=== PATIENT | female | born 1940 | race Caucasian/White ===

== ENCOUNTER 2019-10-30 23:49 | Observation (INO) | payer OTHER ==
--- OUTSIDE RECORDS SUMMARY | 2019-10-30 23:50 | XMS REPORT ---
:1940 Author Organization eClinicalWorks Care Team Providers Name Role Phone Briones, Na Provider Role Unavailable Allergies, Adverse Reactions, Alerts Substance Reaction Event Type N.K.D.A. Info Not Available Non Drug Allergy Problems Problem Type Condition Code Onset Dates Condition Status Problem Hyperlipidemia E78.5 Active Problem Controlled type 2 diabetes mellitus E11.9 Active without complication, without long-term current use of insulin Problem Primary osteoarthritis involving M15.0 Active multiple joints Problem Gastroesophageal reflux disease K21.0 Active with esophagitis Assessment Dyspnea on minimal exertion R06.09 Active Problem Irritable bowel syndrome with K58.0 Active diarrhea Assessment Primary osteoarthritis involving M15.0 Active multiple joints Problem Left carpal tunnel syndrome G56.02 Active Problem Chronic kidney disease, stage III N18.3 Active (moderate) Problem Seasonal allergic rhinitis due to J30.1 Active pollen Problem Type 2 diabetes mellitus with E11.22 Active diabetic chronic kidney disease Problem skilled nursing current use of insulin Z79.4 Active Problem Constipation K59.00 Active Problem Diabetic neuropathy E11.40 Active Problem Hemorrhoids K64.9 Active Problem GERD (gastroesophageal reflux K21.9 Active disease) Problem Knee pain M25.569 Active Problem Peripheral neuropathy G62.9 Active Problem Benign essential HTN I10 Active Problem Anemia D64.9 Active Problem Diabetes E11.9 Active Medications Medication Code Code Instructions Start End Status Dosage System Date Date Meloxicam [facility] 55643385726 7.5 MG Orally Active 1 tablet Once a day Metformin HCl [facility] 19798317350 1000 MG Orally Active 1 tablet Twice a day with meals Flonase ND 10719948041 50 MCG/ACT Active 2 spray in Nasally Once a each day nostril Amlodipine [facility] 72824415422 10 MG Orally Active 1 tablet Besylate Once a day Vitamin B-12 ND 35231756558 1000 MCG Orally Active 1 tablet Once a day Benadryl NDC 0 Active not defined Meloxicam [facility] 46559440276 7.5 MG Orally April 04, Active 1 tablet Once a day 2019 Amlodipine ND 14572363643 10 MG Orally Active 1 tablet Besylate Once a day Restasis [facility] 04909606874 0.05 % Active 1 drop into Ophthalmic affected Twice a day eye Metformin HCl [facility] 47913155227 1000 MG Orally Active 1 tablet Twice a day with meals Niacin ND 01711706914 500 MG Orally Active 1 tablet Once a day with food Lantus SoloStar [facility] 26268430467 100 UNIT/ML Active not defined Subcutaneous Pen [place] [facility] 16409417724 31G X 5 MM February Active as directed 2017 Cephalexin [facility] 20967806078 500 MG Orally Active 1 capsule every 12 hrs D3 Adult [facility] 70911280580 1000 UNIT Active 1 tablet Orally Once a day Gabapentin [facility] 96909829598 600 MG Orally Active 1 tablet twice a day Lipitor [facility] 42369913932 40 MG Orally Active 1 tablet Once a day Magnesium [facility] 77461962634 250 MG Orally Active 1 tablet Once a day with a meal CoQ10 [facility] 20998224870 200 MG Orally Active 1 capsule Once a day with a meal Doxycycline [facility] 72022481901 20 MG Orally Active 1 tablet Hyclate Twice a day Lipitor [facility] 27175942391 40 MG Orally Active 1 tablet Once a day Basaglar [facility] 16485937351 100 UNIT/ML Active 40 units KwikPen Subcutaneous daily Aspir-Low [facility] 14954995847 81 MG Orally Active 1 tablet Once a day Stool Softener [facility] 34001217557 100 MG Orally Active 1 capsule Once a day as needed Amoxicillin [facility] 38687078776 500 MG Orally Active 1 capsule every 8 hrs Vitamin B12 [facility] 19794138494 1000 MCG Orally Active 1 tablet Once a day Dicyclomine HCl [facility] 92129242455 10 MG Orally Nov 09, Active 1 capsules Four times a 2017 day Centrum Silver [facility] 33781993317 - Orally Active as directed Aspirin 81 ND 52043494864 81 MG Orally Active 1 tablet Once a day Basaglar [facility] 00903458847 100 UNIT/ML Active 40 units KwikPen Subcutaneous daily Gabapentin [facility] 92650172978 600 MG Orally Active 1 tablet twice a day Claritin [facility] 10592504160 10 MG Orally Active 1 tablet Once a day Results Name Result Date Reference Range Unit Abnormality Flag Chest Pa And Lat (2 Views) Summary Purpose eClinicalWorks Submission
--- OUTSIDE RECORDS SUMMARY | 2019-10-30 23:50 | XMS REPORT ---
:1940 Author Organization eClinicalWorks Care Team Providers Name Role Phone Briones, Na Provider Role Unavailable Allergies No Known Allergies Problems Problem Type Condition Code Onset Dates Condition Status Problem Hyperlipidemia E78.5 Active Problem Controlled type 2 diabetes mellitus E11.9 Active without complication, without long-term current use of insulin Problem Primary osteoarthritis involving M15.0 Active multiple joints Problem Gastroesophageal reflux disease K21.0 Active with esophagitis Problem Irritable bowel syndrome with K58.0 Active diarrhea Problem Left carpal tunnel syndrome G56.02 Active Problem Chronic kidney disease, stage III N18.3 Active (moderate) Problem Seasonal allergic rhinitis due to J30.1 Active pollen Problem Type 2 diabetes mellitus with E11.22 Active diabetic chronic kidney disease 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
--- OUTSIDE RECORDS SUMMARY | 2019-10-30 23:50 | XMS REPORT ---
:1940 Author Organization eClinicalWorks Care Team Providers Name Role Phone Briones, Na Provider Role Unavailable Allergies, Adverse Reactions, Alerts Substance Reaction Event Type N.K.D.A. Info Not Available Non Drug Allergy Problems Problem Type Condition Code Onset Dates Condition Status Assessment Needs flu shot Z23 Active Assessment detention current use of insulin Z79.4 Active Assessment Gastroesophageal reflux disease K21.0 Active with esophagitis Assessment Chronic kidney disease, stage III N18.3 Active (moderate) Problem Benign essential HTN I10 Active Assessment Primary osteoarthritis involving M15.0 Active multiple joints Problem Diabetes E11.9 Active Assessment Diabetic neuropathy E11.40 Active Problem Hyperlipidemia E78.5 Active Problem Controlled type 2 diabetes mellitus E11.9 Active without complication, without long-term current use of insulin Problem Primary osteoarthritis involving M15.0 Active multiple joints Problem Gastroesophageal reflux disease K21.0 Active with esophagitis Problem Irritable bowel syndrome with K58.0 Active diarrhea Assessment Type 2 diabetes mellitus with E11.22 Active diabetic chronic kidney disease Assessment Benign essential HTN I10 Active Problem Left carpal tunnel syndrome G56.02 Active Assessment Hyperlipidemia E78.5 Active Problem Chronic kidney disease, stage III N18.3 Active (moderate) Problem Seasonal allergic rhinitis due to J30.1 Active pollen Problem Type 2 diabetes mellitus with E11.22 Active diabetic chronic kidney disease Problem meterman current use of insulin Z79.4 Active Problem Constipation K59.00 Active Problem Diabetic neuropathy E11.40 Active Problem Hemorrhoids K64.9 Active Problem GERD (gastroesophageal reflux K21.9 Active disease) Problem Knee pain M25.569 Active Problem Peripheral neuropathy G62.9 Active Problem Anemia D64.9 Active Medications Medication Code Code Instructions Start End Status Dosage System Date Date Metformin HCl [facility] 46841929423 1000 MG Orally Active 1 tablet Twice a day with meals Amoxicillin [facility] 28621067278 500 MG Orally Active 1 capsule every 8 hrs Lipitor ND 81318701850 40 MG Orally Active 1 tablet Once a day Meloxicam [facility] 94728586639 7.5 MG Orally Active 1 tablet Once a day Gabapentin [facility] 07905748747 600 MG Orally Active 1 tablet twice a day Doxycycline ND 52496438483 20 MG Orally Active 1 tablet Hyclate Twice a day Cephalexin ND 82704942793 500 MG Orally Active 1 capsule every [address] [facility] 35609410232 100 UNIT/ML Active not defined Subcutaneous Basaglar [facility] 03508672404 100 UNIT/ML Active 40 units KwikPen Subcutaneous daily Aspirin 81 ND 73011691752 81 MG Orally Active 1 tablet Once a day Lipitor ND 81918646732 40 MG Orally Active 1 tablet Once a day Meloxicam [facility] 99278711282 7.5 MG Orally Active 1 tablet Once a day Basaglar [facility] 51507555600 100 UNIT/ML Active 40 units KwikPen Subcutaneous daily CoQ10 ND 82806818060 200 MG Orally Active 1 capsule Once a day with a meal Vitamin B12 [facility] 33375731830 1000 MCG Orally Active 1 tablet Once a day Gabapentin [facility] 25253728809 600 MG Orally Active 1 tablet twice a day Dicyclomine HCl [facility] 49382074636 10 MG Orally Nov 09, Active 1 capsules Four times a [address] [facility] 41738572749 - Orally Active as directed Aspir-Low [facility] 71638231143 81 MG Orally Active 1 tablet Once a day Benadryl [facility] 0 Active not defined Flonase [facility] 43432368845 50 MCG/ACT Active 2 spray in Nasally Once a each day nostril Amlodipine [facility] 86174310563 10 MG Orally Active 1 tablet Besylate Once a day D3 Adult [facility] 99966259732 1000 UNIT Active 1 tablet Orally Once a day Magnesium [facility] 97195920340 250 MG Orally Active 1 tablet Once a day with a meal Pen [place] [facility] 30354753752 31G X 5 MM February Active as directed [address] [facility] 96240462624 100 MG Orally Active 1 capsule Once a day as needed Vitamin B-12 [facility] 90750272748 1000 MCG Orally Active 1 tablet Once a day Restasis [facility] 37985363651 0.05 % Active 1 drop into Ophthalmic affected Twice a day eye Metformin HCl [facility] 45200463078 1000 MG Orally Active 1 tablet Twice a day with meals Claritin [facility] 74843049864 10 MG Orally Active 1 tablet Once a day Niacin [facility] 51542655054 500 MG Orally Active 1 tablet Once a day with food Amlodipine [facility] 17424430501 10 MG Orally Active 1 tablet Besylate Once a day Results No Known Results Immunizations Vaccine Administration Date FluAD Aug 26, 2019 Summary Purpose eClinicalWorks Submission
--- OUTSIDE RECORDS SUMMARY | 2019-10-30 23:50 | XMS REPORT ---
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
[2019-10-30] MEDS ORDERED: NITROGLYCERIN 0.4 MG/TAB SL ONE (23:59)
[2019-10-31 00:13] LABS: Absolute Lymphocytes (CBC) 6.8 K/uL (0.7-4.9); Basophils % 0.8 % (0-1.3); Hematocrit 39.9 % (36.0-45.0); Lymphocytes % 29.6 % (15.3-44.8); MPV 9.3 fL (7.6-11.3); Protime INR 0.99; RBC Red Blood Cell Count 4.19 M/uL (3.86-4.86)
[2019-10-31] MEDS ORDERED: ASPIRIN EC 81 MG TAB PO ONE (00:28)
[2019-10-31] MEDS ORDERED: ASPIRIN 81 MG CHEWABLE TABLET ONE (00:30)
[2019-10-31 00:39] LABS: Albumin 3.7 g/dL (3.4-5.0); Bilirubin Direct 0.1 mg/dL (0-0.2); Bilirubin Total 0.3 mg/dL (0.2-1.0); Potassium 3.9 mmol/L (3.5-5.1); Protein, Total 7.4 g/dL (6.4-8.2)
[2019-10-31 00:40] LABS: Troponin (Emerg Dept Use Only) 0.76 ng/mL (0.0-0.045)
[2019-10-31 00:52] LABS: Blood Morphology Comment NOT SEEN (NOT SEEN); Platelet Estimate ADEQ
[2019-10-31] MEDS ORDERED: CEFTRIAXONE/SWI 1gm 2 GM/20 ML SYR ONE (00:57)
[2019-10-31] MEDS ORDERED: LEVALBUTEROL 1.25 MG/3 ML NEB ONE (00:57)
[2019-10-31] MEDS ORDERED: AZITHROMYCIN 500 MG INJ IVPB ONE (00:57)
[2019-10-31] MEDS ORDERED: NA CHLORIDE 0.9% 250 ML ONE (00:57)
[2019-10-31] MEDS ORDERED: LEVALBUTEROL 0.63 MG/3 ML NEB ONE (00:59)
[2019-10-31 01:22] LABS: Blood Gas Oxyhemoglobin 99.7 % (94-97); Blood O2 Saturation 99.8 % (92-98.5)
[2019-10-31 01:23] LABS: Arterial Blood Carboxyhemoglob 0.4 % (0-1.5)
[2019-10-31] MEDS ORDERED: FUROSEMIDE 40 MG/4 ML VIAL ONE (02:07)
[2019-10-31] MEDS ORDERED: ENOXAPARIN 80 MG/0.8 ML SQ ONE (02:32)
--- NOTE | 2019-10-31 02:37 | ER ---
Nurse's Notes [facility] Name: Lorelei Ordonez Age: 79 yrs Sex: Female : 1940 Arrival Date: 10/30/2019 Time: 23:56 Bed 14 Private MD: Diagnosis: acute dyspnea;acute CHF;NSTEMI;hyperglycemia Presentation: 10/31 00:04 Presenting complaint: Patient states: SOB and chest pain. pt daughter stated SOB for ak1 "weeks" pt seen by white lead grinder today. pt diaphoretic. Transition of care: patient was not received from another setting of care. Onset of symptoms was October 31, 2019. Risk Assessment: Do you want to hurt yourself or someone else? Patient reports no desire to harm self or others. Initial Sepsis Screen: Does the patient meet any 2 criteria? RR > 20 per min. HR > 90 bpm. Yes Does the patient have a suspected source of infection? No. Patient's initial sepsis screen is negative. Care prior to arrival: None. 00:04 Method Of Arrival: Wheelchair ak1 00:04 Acuity: MELY 1 ak1 Historical: - Allergies: 00:13 No Known Allergies; ak1 - Home Meds: 00:13 metformin 1,000 mg Oral TG24 1 tab 2 times per day [Active]; meloxicam 7.5 mg oral tab ak1 1 tab once daily [Active]; amlodipine besylate 10mg daily [Active]; atorvastatin 40 mg oral tab 1 tab once daily [Active]; doxycycline hyclate 20 mg Oral tab 1 tab 2 times per day [Active]; aspirin 81 mg Oral TbEC 1 tab once daily [Active]; Iron CR 65mg Oral daily [Active]; niacin 500 mg Oral cpER 1 caps once daily [Active]; D3 25mg 2 tabs daily [Active]; magnesium oral 165mg oral twice a day [Active]; Benadryl 25 mg Oral cap 2 caps once daily [Active]; basaglar kwikpen 40 untis daily [Active]; fluticasone propionate (bulk) 100 % miscellaneous powd [Active]; Restasis 0.05 % ophthalmic dpet [Active]; Colace oral oral once daily [Active]; COQU 10 200mg daily [Active]; B12 500mg twice a day [Active]; - PSHx: 00:13 right hip replacement; ak1 - Immunization history:: Adult Immunizations unknown. - Social history:: Smoking status: Patient/guardian denies using tobacco. - Ebola Screening: : No symptoms or risks identified at this time. - Family history:: not pertinent. - Hospitalizations: : No recent hospitalization is reported. - History obtained from: daughter. - Unable to obtain history due to: history somewhat limited due to pt in extremies. Screenin:36 Abuse screen: Denies threats or abuse. Nutritional screening: No deficits noted. fu Tuberculosis screening: No symptoms or risk factors identified. Fall Risk None identified. Assessment: 00:04 General: Appears distressed, uncomfortable, Behavior is anxious, Reports shortness of fu breath and chest pain for 2 weeks, went to white lead grinder today. Pain: Complains of pain in chest pain Pain does not radiate. Pain currently is 10 out of 10 on a pain scale. Also complains of shortness of breath. Neuro: Level of Consciousness is awake, alert, obeys commands, Oriented to person, place, time, situation. Cardiovascular: Reports chest pain, diaphoresis, shortness of breath, Denies nausea, vomiting, Respiratory: Reports shortness of breath on exertion Airway is patent Breath sounds with crackles bilaterally. Respiratory: Reports cough that is productive. GI: No signs and/or symptoms were reported involving the gastrointestinal system. : No signs and/or symptoms were reported regarding the genitourinary system. EENT: Reports nasal discharge that is watery. Derm: No signs and/or symptoms reported regarding the dermatologic system. Musculoskeletal: No signs and/or symptoms reported regarding the musculoskeletal system. 01:40 Reassessment: Patient appears in no apparent distress at this time. Patient and/or fu family updated on plan of care and expected duration. Pain level reassessed. Patient denies pain at this time. Patient states feeling better. Patient states symptoms have improved. Patient on BIPAP at 45% FiO2. Diaphoresis not noted, SOB not noted. . 02:48 Reassessment: Patient appears in no apparent distress at this time. No changes from fu previously documented assessment. Patient and/or family updated on plan of care and expected duration. Pain level reassessed. Patient denies pain at this time. Patient states feeling better. Patient currently on BIPAP at 45% FiO2.. 03:30 Reassessment: Patient appears in no apparent distress at this time. No changes from fu previously documented assessment. Patient denies pain at this time. Patient states symptoms have improved. 04:30 Reassessment: Patient appears in no apparent distress at this time. No changes from fu previously documented assessment. Patient and/or family updated on plan of care and expected duration. Pain level reassessed. 07:00 Reassessment: RECD REPORT ON 79YO WF FROM NAVID NEIL. PT IS ER HOLD FOR ICU, DX WITH bp PULMONARY EDEMA AND RESPIRATORY DISTRESS. SEE [facility] FOR FURTHER CHARTING. Vital Signs: 10/30 23:50 BP 141 / 101; Pulse 127; Resp 33; Pulse Ox 93% on 15 lpm NC; Weight 74.84 kg (R); ak1 Height 5 ft. 4 in. (162.56 cm); Pain 10/; 23:50 BP 151 / 70; Pulse 127; Resp 33; Pulse Ox 97% on 15% Non-rebreather mask; ak1 10/31 00:15 BP 111 / 65; Pulse 127; Resp 23; Pulse Ox 94% on 45% BiPAP; fu 00:30 BP 111 / 64; Pulse 116; Resp 24; Pulse Ox 96% on BiPAP; fu 01:00 BP 121 / 103; Pulse 106; Resp 27; Pulse Ox 100% on BiPAP; fu 01:55 BP 118 / 62 LA; Pulse 100; Resp 23; Pulse Ox 100% on 45% BiPAP; Pain 0/10; fu 02:15 BP 119 / 64; Pulse 100; Resp 24; Pulse Ox 99% on 45% BiPAP; Pain 0/10; fu 03:00 BP 110 / 86; Pulse 113; Resp 24; Pulse Ox 99% on 45% BiPAP; Pain 0/10; fu 03:30 BP 111 / 82; Pulse 102; Resp 22; Pulse Ox 99% on 45% BiPAP; Pain 0/10; fu 04:00 BP 129 / 75; Pulse 106; Resp 26; Pulse Ox 100% on 45% BiPAP; Pain 0/10; fu 10/30 23:50 Body Mass Index 28.32 (74.84 kg, 162.56 cm) ak1 ED Course: 10/30 23:50 Inserted saline lock: 20 gauge in right antecubital area, using aseptic technique. cc3 Blood collected. 23:56 Patient arrived in ED. ak1 23:59 Bird Griggs MD is Attending Physician. 10/31 00:04 Navid Guerin, RN is Primary Nurse. fu 00:05 Triage completed. ak1 00:14 Arm band placed on Patient placed in an exam room, on a stretcher, on oxygen, on ak1 spearer, on pulse oximetry, Patient notified of wait time. EKG completed in triage. Results shown to MD. 00:15 Inserted saline lock: 18 gauge in left wrist, using aseptic technique. Blood collected. ds4 00:24 Notified ED physician of a critical lab result(s). WBC 23.1. ak1 00:30 First set of blood cultures drawn by me, Second set of blood cultures drawn by me, EKG ds4 done, by ED staff, reviewed by Bird Griggs MD. 00:33 XRAY Chest (1 view) In Process Unspecified. EDMS 00:33 Protime (+INR) Sent. ds4 00:33 CBC with Automated Diff Sent. ds4 00:33 Lactate Sent. ds4 00:33 Blood Culture Adult (2) Sent. ds4 00:33 BMP Sent. ds4 00:33 Troponin (emerg Dept Use Only) Sent. ds4 00:51 Notified ED physician of a critical lab result(s). Troponin 0.76. fu 01:12 Notified ED physician of a critical lab result(s). Lactate 5.8. fu 01:34 CT Chest For PE Angio In Process Unspecified. EDMS 01:37 Patient has correct armband on for positive identification. Placed in gown. Bed in low fu position. Call light in reach. Side rails up X2. 02:35 Yana Stallworth MD is Hospitalizing Provider. wa 02:43 provided with pillow. fu 03:12 Urine Microscopic Only Sent. fu 03:30 Patient transferred to hospital bed. fu 04:30 No provider procedures requiring assistance completed. fu 04:33 Patient admitted, IV remains in place. fu 06:51 Notified the Hospitalist of a critical lab result(s), tropin 1.61 and lactate 2.[address] Trista Stallworth. 07:05 Primary Nurse role handed off by Navid Guerin, RASHAAD bp 07:05 Regino Quiñones, RN is Primary Nurse. bp Administered Medications: 00:02 Drug: Nitroglycerin 0.4 mg Route: Sublingual; fu 00:05 Follow up: Response: Pain is decreased fu 00:06 Drug: Nitroglycerin 0.4 mg Route: Sublingual; fu 00:09 Follow up: Response: Pain is decreased fu 00:36 Drug: Aspirin Chewable Tablet 324 mg Route: PO; fu 00:45 Follow up: Response: No adverse reaction fu 01:00 Drug: Rocephin - (cefTRIAXone) 2 grams Route: IVPB; Infused Over: 30 mins; Site: right fu antecubital; 14:04 Follow up: IV Status: Completed infusion bp 01:05 Drug: Xopenex 1.25 mg {Note: administered by RT.} Route: Inhalation; fu 01:10 Drug: Zithromax 500 mg Route: IVPB; Infused Over: 1 hrs; Site: right antecubital; fu 14:03 Follow up: IV Status: Completed infusion bp 02:19 Drug: Lasix 40 mg Route: IVP; Site: left forearm; fu 14:02 Follow up: Response: No adverse reaction bp 02:44 Drug: Lovenox 80 mg Route: Sub-Q; Site: abdomen; fu 14:01 Follow up: Response: No adverse reaction bp Output: 03:13 Urine: 250ml (Voided); Total: 250ml. fu 04:16 Urine: 150ml (Voided); Total: 400ml. fu Outcome: 02:37 Decision to Hospitalize by Provider. wa 04:33 Admitted to ER Hold. Please see [facility] for further documentation. fu 04:33 Condition: improved 04:33 Instructed on the need for admit. 14:05 Patient left the ED. bp Signatures: Dispatcher [employer] EDMS Ford Zimmerman ds4 Mariah Chow RN RN ak1 Bird Griggs MD MD wa Umadhay, Felix, RN RN fu Peltier, Brian, RN RN bp Cordel, Charlene cc3 Corrections: (The following items were deleted from the chart) 00:10 00:06 General: Appears distressed, uncomfortable, Behavior is anxious, fu fu 01:35 01:00 BP 121 / 103; Pulse 106bpm; Resp 27bpm; Pulse Ox 100%; fu fu 02:25 01:30 Response: Marked relief of symptoms fu fu 02:25 02:00 Response: No adverse reaction [facility] [place] 04:40 04:38 Patient transferred to hospital bed. tien chauhan
--- NOTE | 2019-10-31 02:37 | EDPHYS ---
Physician Documentation [facility] Name: Lorelei Ordonez Age: 79 yrs Sex: Female : 1940 Arrival Date: 10/30/2019 Time: 23:56 Bed 14 Private MD: ED Physician Bird Griggs HPI: 10/31 02:18 This 79 yrs old Female presents to ER via Wheelchair with complaints of wa severe shortness of breath. 02:18 The patient has shortness of breath at rest. Onset: The symptoms/episode began/occurred wa just prior to arrival. Duration: The symptoms are continuous, and are steadily getting worse. The patient's shortness of breath has no apparent modifying factors. Associated signs and symptoms: Pertinent positives: chest pain, Pertinent negatives: productive cough, dizziness, hemoptysis. Severity of symptoms: At their worst the symptoms were severe in the emergency department the symptoms are worse markedly. The patient has not experienced similar symptoms in the past. The patient has been recently seen by a physician: Dr. hogue. pt with h/o SOB x [address] Hogue., pt slated for chemical stress test pending. states tonight, sudden onset difficulty in breathing. admits to chest tightness as well. denies h/o COPD. denies tobacco smoking. . Historical: - Allergies: 00:13 No Known Allergies; ak1 - Home Meds: 00:13 metformin 1,000 mg Oral TG24 1 tab 2 times per day [Active]; meloxicam 7.5 mg oral tab ak1 1 tab once daily [Active]; amlodipine besylate 10mg daily [Active]; atorvastatin 40 mg oral tab 1 tab once daily [Active]; doxycycline hyclate 20 mg Oral tab 1 tab 2 times per day [Active]; aspirin 81 mg Oral TbEC 1 tab once daily [Active]; Iron CR 65mg Oral daily [Active]; niacin 500 mg Oral cpER 1 caps once daily [Active]; D3 25mg 2 tabs daily [Active]; magnesium oral 165mg oral twice a day [Active]; Benadryl 25 mg Oral cap 2 caps once daily [Active]; basaglar kwikpen 40 untis daily [Active]; fluticasone propionate (bulk) 100 % miscellaneous powd [Active]; Restasis 0.05 % ophthalmic dpet [Active]; Colace oral oral once daily [Active]; COQU 10 200mg daily [Active]; B12 500mg twice a day [Active]; - PSHx: 00:13 right hip replacement; ak1 - Immunization history:: Adult Immunizations unknown. - Social history:: Smoking status: Patient/guardian denies using tobacco. - Ebola Screening: : No symptoms or risks identified at this time. - Family history:: not pertinent. - Hospitalizations: : No recent hospitalization is reported. - History obtained from: daughter. - Unable to obtain history due to: history somewhat limited due to pt in extremies. ROS: 02:22 Eyes: Negative for injury, pain, redness, and discharge, ENT: Negative for injury, wa pain, and discharge, Neck: Negative for injury, pain, and swelling, Abdomen/GI: Negative for abdominal pain, nausea, vomiting, diarrhea, and constipation, Back: Negative for injury and pain, : Negative for injury, bleeding, discharge, and swelling, MS/Extremity: Negative for injury and deformity, Skin: Negative for injury, rash, and discoloration, Neuro: Negative for headache, weakness, numbness, tingling, and seizure, Psych: Negative for depression, anxiety, suicide ideation, homicidal ideation, and hallucinations. 02:22 Constitutional: Negative for chills, fever, weight loss. 02:22 Cardiovascular: Positive for chest pain, Negative for edema, orthopnea, palpitations, paroxysmal nocturnal dyspnea. 02:22 Respiratory: Positive for shortness of breath, at rest. Negative for cough, hemoptysis, wheezing. 02:22 All other systems are negative. Exam: 02:23 Head/Face: Normocephalic, atraumatic. Eyes: Pupils equal round and reactive to light, wa extra-ocular motions intact. Lids and lashes normal. Conjunctiva and sclera are non-icteric and not injected. Cornea within normal limits. Periorbital areas with no swelling, redness, or edema. ENT: Nares patent. No nasal discharge, no septal abnormalities noted. Tympanic membranes are normal and external auditory canals are clear. Oropharynx with no redness, swelling, or masses, exudates, or evidence of obstruction, uvula midline. Mucous membranes moist. Neck: Trachea midline, no thyromegaly or masses palpated, and no cervical lymphadenopathy. Supple, full range of motion without nuchal rigidity, or vertebral point tenderness. No Meningismus. Chest/axilla: Normal chest wall appearance and motion. Nontender with no deformity. No lesions are appreciated. Abdomen/GI: Soft, non-tender, with normal bowel sounds. No distension or tympany. No guarding or rebound. No evidence of tenderness throughout. Back: No spinal tenderness. No costovertebral tenderness. Full range of motion. MS/ Extremity: Pulses equal, no cyanosis. Neurovascular intact. Full, normal range of motion. Neuro: Awake and alert, GCS 15, oriented to person, place, time, and situation. Cranial nerves II-XII grossly intact. Motor strength 5/5 in all extremities. Sensory grossly intact. Cerebellar exam normal. Normal gait. 02:23 Constitutional: The patient appears in obvious distress, cool, clammy, diaphoretic. severe resp distress 02:25 Cardiovascular: Rate: tachycardic, Rhythm: regular, Heart sounds: normal. wa 02:25 Respiratory: severe repiratory distress is noted, Respirations: tachypnea, Breath sounds: rhonchi, that are severe, are heard diffusely, Respiratory rate: tachypneic Vital Signs: 10/30 23:50 BP 141 / 101; Pulse 127; Resp 33; Pulse Ox 93% on 15 lpm NC; Weight 74.84 kg (R); ak1 Height 5 ft. 4 in. (162.56 cm); Pain 10/10; 23:50 BP 151 / 70; Pulse 127; Resp 33; Pulse Ox 97% on 15% Non-rebreather mask; ak1 10/31 00:15 BP 111 / 65; Pulse 127; Resp 23; Pulse Ox 94% on 45% BiPAP; fu 00:30 BP 111 / 64; Pulse 116; Resp 24; Pulse Ox 96% on BiPAP; fu 01:00 BP 121 / 103; Pulse 106; Resp 27; Pulse Ox 100% on BiPAP; fu 01:55 BP 118 / 62 LA; Pulse 100; Resp 23; Pulse Ox 100% on 45% BiPAP; Pain 0/10; fu 02:15 BP 119 / 64; Pulse 100; Resp 24; Pulse Ox 99% on 45% BiPAP; Pain 0/10; fu 03:00 BP 110 / 86; Pulse 113; Resp 24; Pulse Ox 99% on 45% BiPAP; Pain 0/10; fu 03:30 BP 111 / 82; Pulse 102; Resp 22; Pulse Ox 99% on 45% BiPAP; Pain 0/10; fu 04:00 BP 129 / 75; Pulse 106; Resp 26; Pulse Ox 100% on 45% BiPAP; Pain 0/10; fu 1211 23:50 Body Mass Index 28.32 (74.84 kg, 162.56 cm) ak1 MDM: 00:00 Patient medically screened. ky 02:26 Differential diagnosis: Anxiety Reaction Bronchitis CHF exacerbation, Chronic wa Obstructive Pulmonary Disease Myocardial Infarction pneumonia, pulmonary edema, Pulmonary Embolism reactive airway disease, Unstable Angina. Data reviewed: vital signs, nurses notes, lab test result(s), EKG, radiologic studies. Test interpretation: by ED physician or midlevel provider: CXR noted for pulm edema. CT chest: no PE. pulm edema. labs noted for elevated trop at 0.76. lactate of 5.8. wbc 23.1. flu neg. hyperglycemia. elevated BNP. decreased GFR. AB.62/28.5/152. resp alkalosis. Response to treatment: the patient's symptoms have markedly improved after treatment. Physician consultation: Tr Quijano MD was called at 02:15. 02:30 Test interpretation: by ED physician or midlevel provider: EKG \T\ 2358: HR 126. sinus wa tach. LBBB. diffuse ST-T changes. EKG from 10/08/19 shows LBBB as well. . ED course: immediate control of resp distress. see orders. placed on BIPAP. pt tolerated will. work up included, cardiac, pulm versus pulm etiology eval. noted NSTEMI. pulm edema. 10/31 00:04 Order name: Blood Culture Adult (2) ky 10/31 00:04 Order name: BMP; Complete Time: : ky 10/31 00:04 Order name: CBC with Diff ky 10/31 00:04 Order name: CPK; Complete Time: : ky 10/31 00:04 Order name: Hepatic Function; Complete Time: 01: ky 10/31 00:04 Order name: Lipase; Complete Time: : ky 10/31 00:04 Order name: Magnesium; Complete Time: 01: ky 10/31 00:04 Order name: PT-INR ky 10/31 00:04 Order name: Troponin (emerg Dept Use Only); Complete Time: 01:56 ky 10/31 00:05 Order name: Flu; Complete Time: 01:56 ky 10/31 00:08 Order name: Urine Microscopic Only ky 10/31 00:13 Order name: ABG ky 10/31 00:13 Order name: Lactate; Complete Time: 01:56 ky 10/31 00:21 Order name: CBC with Automated Diff; Complete Time: 01:56 EDHI 10/31 00:22 Order name: Protime (+INR) EDHI 10/31 00:38 Order name: Manual Differential; Complete Time: 01:56 EDHI 10/31 00:51 Order name: NT PRO-BNP; Complete Time: 01:55 EDHI 10/31 04:29 Order name: Lactate Sepsis 2 HR Follow-up EDHI 10/31 06:38 Order name: Lipid Profile EDHI 10/31 06:39 Order name: Thyroid Stimulating Hormone EDHI 10/31 06:48 Order name: Lactate EDHI 10/31 06:50 Order name: CKMB Creatine Kinase MB EDHI 10/31 06:50 Order name: Troponin I EDHI 10/31 07:21 Order name: Glucose, Ancillary Testing EDHI 10/31 07:59 Order name: Hemoglobin A1c EDHI 10/31 08:00 Order name: Procalcitonin EDHI 10/31 09:20 Order name: ABG Arterial Blood Gas EDHI 10/31 10:18 Order name: Lactate Sepsis 2 HR Follow-up EDHI 10/31 12:47 Order name: Glucose, Ancillary Testing EDHI 10/30 23:57 Order name: XRAY Chest (1 view) ak1 10/31 00:04 Order name: EKG; Complete Time: 00:07 ky 10/31 00:04 Order name: Cardiac monitoring; Complete Time: 00:14 ky 10/31 00:04 Order name: EKG - Nurse/Tech; Complete Time: 00:14 ky 10/31 00:04 Order name: IV Saline Lock; Complete Time: 00:14 ky 10/31 00:04 Order name: Labs collected and sent; Complete Time: 00:33 ky 10/31 00:04 Order name: O2 Per Protocol; Complete Time: 00:14 ky 10/31 00:04 Order name: O2 Sat Monitoring; Complete Time: 00:14 ky 10/31 00:22 Order name: CT Chest For PE Angio ky 10/31 04:38 Order name: Social Service Consult EDMS 10/31 12:04 Order name: RAD EDMS Administered Medications: 00:02 Drug: Nitroglycerin 0.4 mg Route: Sublingual; fu 00:05 Follow up: Response: Pain is decreased fu 00:06 Drug: Nitroglycerin 0.4 mg Route: Sublingual; fu 00:09 Follow up: Response: Pain is decreased fu 00:36 Drug: Aspirin Chewable Tablet 324 mg Route: PO; fu 00:45 Follow up: Response: No adverse reaction fu 01:00 Drug: Rocephin - (cefTRIAXone) 2 grams Route: IVPB; Infused Over: 30 mins; Site: right fu antecubital; 14:04 Follow up: IV Status: Completed infusion bp 01:05 Drug: Xopenex 1.25 mg {Note: administered by RT.} Route: Inhalation; fu 01:10 Drug: Zithromax 500 mg Route: IVPB; Infused Over: 1 hrs; Site: right antecubital; fu 14:03 Follow up: IV Status: Completed infusion bp 02:19 Drug: Lasix 40 mg Route: IVP; Site: left forearm; fu 14:02 Follow up: Response: No adverse reaction bp 02:44 Drug: Lovenox 80 mg Route: Sub-Q; Site: abdomen; fu 14:01 Follow up: Response: No adverse reaction bp Disposition: 02:34 Critical Care:. ky Disposition: 10/31/19 02:37 Hospitalization ordered by Yana Stallworth for Inpatient Admission. Preliminary diagnosis are acute dyspnea, acute CHF, NSTEMI, hyperglycemia. - Bed requested for Telemetry/MedSurg (Inpatient). - Status is Inpatient Admission. bp - Condition is Stable. - Problem is new. - Symptoms have improved. UTI on Admission? No Critical care time excluding procedures: 02:34 Critical care time: Bedside Care: 20 minutes, Consultation: 5 minutes, Family wa Intervention: 5 minutes. Total time: 30 minutes Signatures: Dispatcher [employer] EDHI Barbara Romano RN RN tl1 Mariah Chow RN RN ak1 Bird Griggs MD MD wa Umadhay, Felix, RN RN fu Peltier, Brian, RN RN bp [place] mw2 Nancy Cervantes Corrections: (The following items were deleted from the chart) 00:50 00:07 PROBNP+C.LAB.BRZ ordered. EDMS EDMS 04:07 02:37 Hospitalization Ordered by Yana Stallworth MD for Inpatient Admission. Preliminary mw2 diagnosis is acute dyspnea; acute CHF; NSTEMI; hyperglycemia. Bed requested for Telemetry/MedSurg (Inpatient). Status is Inpatient Admission. Condition is Stable. Problem is new. Symptoms have improved. UTI on Admission? No. wa 04:26 04:07 10/31/2019 02:37 Hospitalization Ordered by Yana Stallworth MD for Inpatient tl1 Admission. Preliminary diagnosis is acute dyspnea; acute CHF; NSTEMI; hyperglycemia. Bed requested for [facility] ER HOLD. Status is Inpatient Admission. Condition is Stable. Problem is new. Symptoms have improved. UTI on Admission? No. mw2 12:23 04:26 10/31/2019 02:37 Hospitalization Ordered by Yana Stallworth MD for Inpatient eb Admission. Preliminary diagnosis is acute dyspnea; acute CHF; NSTEMI; hyperglycemia. Bed requested for Intensive Care Unit. Status is Inpatient Admission. Condition is Stable. Problem is new. Symptoms have improved. UTI on Admission? No. tl1 14:05 12:23 10/31/2019 02:37 Hospitalization Ordered by Yana Stallworth MD for Inpatient bp Admission. Preliminary diagnosis is acute dyspnea; acute CHF; NSTEMI; hyperglycemia. Bed requested for Telemetry/MedSurg (Inpatient). Status is Inpatient Admission. Condition is Stable. Problem is new. Symptoms have improved. UTI on Admission? No. eb
--- NOTE | 2019-10-31 04:37 | P.HP ---
Certification for Inpatient Patient admitted to: Inpatient With expected LOS: >2 Midnights Patient will require the following post-hospital care: Home Health Services Practitioner: I am a practitioner with admitting privileges, knowledge of patient current condition, hospital course, and medical plan of care. Services: Services provided to patient in accordance with Admission requirements found in Title 42 Section 412.3 of the Code of Federal Regulations Patient History Date of Service: 10/31/19 Reason for admission: respiratory failure, CHF exacerbation History of Present Illness: phil lima is a 79yoWF w/ pmhx DM, HTN, HLD who presented in respiratory failure placed on BIPAP due to SOB. she reports MIX, orthopnea and SOB x 3.5 weeks. she was initally evaluated by her PCP and after testing was sent to cardiology. she visited cardiology on the morning of 10/30/19 to plan for outpatient stress test. she was awaken in the middle of the night in respiratory distress and on ED evaluation noted to have moderate CHF and interstitial infiltrates on imaging. she is noted to have elevated Cr, wbc, troponin, BNP, lactic acid. she remains on BIPAP and will be admitted to ICU for PCCM and cardio eval. She reports substernal non radiating chest pressure, orthopnea, and MIX x 2 weeks. she also reports vomiting en route to the ED. she also reports a chronic cough. prior to 3.5 weeks ago she has never had similarsymptoms. in 2012 she underwent TTE w/ dx of cough - no WMA, EF 58% she denies diaphoresis, LE swelling, nausea, fever, chills, UMAÑA, visual changes, diarrhea, constipation. Allergies No Known Allergies Allergy (Verified 10/31/19 04:53) - Past Medical/Surgical History -: DIABETES - Social History Smoking Status: Never smoker Alcohol use: No CD- Drugs: No Review of Systems General: As per HPI Eyes: Unremarkable ENT: Unremarkable Respiratory: Cough, Shortness of Breath, SOB with Excertion, Sputum Cardiovascular: Chest Pain, Orthopnea Gastrointestinal: Vomiting, As per HPI Genitourinary: Unremarkable Musculoskeletal: Unremarkable Neurological: Unremarkable Physical Examination - Physical Exam General: Alert, Oriented x3, Cooperative, Mild distress, Other (on bipap, conversing, answering questions) HEENT: Atraumatic, Normocephalic, EOMI Neck: Supple Respiratory: Normal air movement, Crackles/rales Cardiovascular: No edema, Normal S1 S2, No murmurs Gastrointestinal: Soft and benign, Non-distended, No rebound, No guarding Musculoskeletal: No clubbing, No swelling, No tenderness Integumentary: No rashes Neurological: Normal speech, Cranial nerves 3-12 intact, Other (gait not tested) External genitalia: No edema, No lesions Rectal: Deferred - Studies Laboratory Data (last 24 hrs) 10/31/19 00:00: PT 11.7, INR 0.99 10/31/19 00:00: WBC 23.1 H*, Hgb 12.9, Hct 39.9, Plt Count 398 10/31/19 00:00: Sodium 139, Potassium 3.9, BUN 18, Creatinine 1.52 H, Glucose 372 H, Magnesium 2.0, Total Bilirubin 0.3, AST 24, ALT 24, Alkaline Phosphatase 50, Lipase 226 Microbiology Data (last 24 hrs): 10/31/19 00:18 Nasopharnyx Influenza Type A Antigen Screen - Final 10/31/19 00:18 Nasopharnyx Influenza Type B Antigen Screen - Final Assessment and Plan - Plan 79yoF admitted w/ # CHF exacerbation - new onset cardio consulted IV lasix for diuresis strict I/O and monitor O2 sats monitor tele, obtain tsh, a1c, lipid trend CE, start ASA 325 daily # respiratory failure- on bipap wean supplemental o2 as tolerated once off of BIPAP - initiate IS duonebs PCCM consulted for titration of supplemental o2 will need PT once off of BiPAP # atypical PNA started on IV abx duonebs, wean supplemental o2 # DM obtain a1c start on SSI monitor FSBG and adjust insulin accordingly DVT ppx - given 80lovenox in ED x 1, SCDs ordered - Advance Directives Does patient have a Living Will: Yes Does patient have a Durable POA for Healthcare: No
[2019-10-31 04:48] LABS: Urine Bacteria <20 /HPF (<20); Urine Culture Reflex Order NOT NEEDED; Urine RBC <5 /HPF (NONE SEEN)
[2019-10-31] MEDS ORDERED: ONDANSETRON 4 MG/2 ML VIAL IV PRN (05:18)
[2019-10-31] MEDS ORDERED: ACETAMINOPHEN 500 MG TAB PO PRN (05:18)
[2019-10-31] MEDS ORDERED: NITROGLYCERIN 0.4 MG/TAB SL PRN (05:18)
[2019-10-31 06:38] LABS: Thyroid Stimulating Hormone 0.927 uIU/mL (0.360-3.740)
[2019-10-31 06:41] LABS: CKMB Creatine Kinase MB 8.9 ng/mL (0.3-3.6)
[2019-10-31 06:49] LABS: Troponin I 1.61 ng/mL (0.0-0.045)
[2019-10-31] MEDS: INSULIN -REGULAR HUMAN 50 UNIT/0.5 ML ML SQ SCH ×4 (07:30→20:38)
[2019-10-31] MEDS ORDERED: ALBUTEROL 2.5 MG/3 ML NEB SOL NEB PRN (07:36)
[2019-10-31] MEDS ORDERED: IPRATROPIUM BROM 0.5MG/2.5ML NEB PRN (07:36)
[2019-10-31] MEDS ORDERED: ALBUTEROL 2.5 MG/3 ML NEB SOL NEB SCH (08:00)
[2019-10-31] MEDS ORDERED: IPRATROPIUM BROM 0.5MG/2.5ML NEB SCH (08:00)
[2019-10-31] MEDS ORDERED: INFLUENZA VACCINE (for 3y+) 0.5 ML DOSE IMVAC ONE (08:00)
--- NOTE | 2019-10-31 08:20 | RAD REPORT ---
EXAM DESCRIPTION: RAD - Chest Single View - 10/31/2019 12:08 am CLINICAL HISTORY: SOB Chest pain. COMPARISON: Chest Pa And Lat (2 Views) dated 10/08/2019; CHEST SINGLE VIEW dated 07/17/2013; CHEST PA AND LAT 2 VIEW dated 02/11/2010; Chest For Pe Angio dated 10/31/2019 FINDINGS: Portable technique limits examination quality. Moderate bilateral pulmonary opacities are present likely representing pulmonary edema or pneumonia. The heart is mildly to moderately enlarged in size. No displaced fractures.
--- NOTE | 2019-10-31 08:22 | EKG ---
Test Date: 2019-10-30 Test Time: 23:58:46 Timber Killer: MILEY MEASUREMENT RESULTS: Intervals: Rate: 126 OH: 160 QRSD: 148 QT: 342 QTc: 495 [place]: P: 78 OH: 160 QRS: -3 T: 133 INTERPRETIVE STATEMENTS: Sinus tachycardia Possible Left atrial enlargement Left bundle branch block Abnormal ECG Compared to ECG 10/08/2019 12:36:17 Sinus rhythm no longer present Electronically Signed On 10-31-19 08:21:57 INSIDE SALES ADMINISTRATOR by Epi Hogue
[2019-10-31] MEDS: CYANOCOBALAMIN 1,000 MCG TAB PO SCH (09:00)
[2019-10-31] MEDS ORDERED: COENZYME Q10- 200 MG CAP PO SCH (09:00)
[2019-10-31] MEDS: NIACIN 500 MG SR TAB PO SCH (09:00)
[2019-10-31 09:14] LABS: Arterial Blood Carboxyhemoglob 0.6 % (0-1.5); Blood Gas Oxyhemoglobin 97.1 % (94-97); Blood O2 Saturation 98.3 % (92-98.5)
--- NOTE | 2019-10-31 11:30 | RAD REPORT ---
EXAM DESCRIPTION: CT Chest For PE Angio CLINICAL HISTORY: 79 years Female SOB TECHNIQUE: Contiguous axial images obtained through the chest were obtained from the thoracic inlet to the level of the upper abdomen during the pulmonary arterial phase of intravenous contrast adminis tration. Coronal, sagittal, and bilateral oblique coronal reformatted images provided. This CT exam was performed according to our departmental dose-optimization program, which includes on e or more of the following dose reduction techniques: automated exposure control, adjustment of the m A and/or kV according to patient size, and/or use of iterative reconstruction technique. COMPARISON: Correlation is made with the chest radiograph dated 10/30/2019. FINDINGS: There is no pulmonary embolus. Mild cardiomegaly without pericardial effusion. Mild atherosclerosis without thoracic aortic aneurysm or dissection. Small to moderate bilateral layering pleural effusions. Moderate diffuse pulmonary edema. No pneumoth orax. Bibasilar atelectasis. The central airways are patent. No lymphadenopathy in the chest. No acute osseous abnormality. Chronic multilevel degenerative changes. IMPRESSION: No pulmonary embolus. Moderate congestive heart failure. Electronically signed by: Manju Garcia MD 10/31/2019 1:50 AM CAR DESIGNER Due to temporary technical issues with the PACS/Fluency reporting system, reports are being signed by the in house radiologist as a courtesy to ensure prompt reporting. The interpreting radiologist is f ully responsible for the content of the report.
--- NOTE | 2019-10-31 11:49 | RAD REPORT ---
EXAM DESCRIPTION: RAD - Chest Single View - 10/31/2019 11:42 am CLINICAL HISTORY: follow up CXR, Suspect pneumonia/CHF Chest pain. COMPARISON: Chest Single View dated 10/30/2019; Chest Pa And Lat (2 Views) dated 10/08/2019; CHEST S [place] VIEW dated 07/17/2013; CHEST PA AND LAT 2 VIEW dated 02/11/2010; Chest For Pe Angio dated 019 FINDINGS: Portable technique limits examination quality. Mild bilateral pulmonary opacities are present, mildly improved since comparative study an most mala tible with mild pulmonary edema. Atelectasis is suspected in both lung bases with small pleural effus ions. The heart is mildly enlarged. No displaced fractures. IMPRESSION: Mild improvement in the CHF pattern is seen since comparative study.
[2019-10-31 14:42] LABS: CKMB Creatine Kinase MB 9.3 ng/mL (0.3-3.6)
[2019-10-31 14:52] LABS: Troponin I 2.79 ng/mL (0.0-0.045)
--- NOTE | 2019-10-31 15:07 | ECHO ---
HEIGHT: 5 ft 4 in WEIGHT: 164 lb 15.903 oz DATE OF STUDY: 10/31/[address]: Yana Stallworth 2-DIMENSIONAL: YES M.MODE: YES DOPPLER: YES COLOR FLOW: YES TDS: PORTABLE: DEFINITY: BUBBLE STUDY: DIAGNOSIS: CONGESTIVE HEART FAILURE CARDIAC HISTORY: CATHERIZATION: NO SURGERY: NO PROSTHETIC VALVE: NO PACEMAKER: NO MEASUREMENTS (cm) DIASTOLIC (NORMALS) SYSTOLIC (NORMALS) IVSd 0.9 (0.6-1.2) LA Diam 4.5 (1.9-4.0) LVEF 35-40% LVIDd 5.6 (3.5-5.7) LVIDs 4.8 (2.0-3.5) %FS 15% LVPWd 1.2 (0.6-1.2) Ao Diam 2.4 (2.0-3.7) 2 DIMENSIONAL ASSESSMENT: RIGHT ATRIUM: NORMAL LEFT ATRIUM: DILATED RIGHT VENTRICLE: NORMAL LEFT VENTRICLE: NORMAL SIZE TRICUSPID VALVE: NORMAL MITRAL VALVE: MITRAL ANNULAR CALCIFICATION PULMONIC VALVE: NORMAL AORTIC VALVE: SCLEROSIS PERICARDIAL EFFUSION: NONE AORTIC ROOT: NORMAL LEFT VENTRICULAR WALL MOTION: MODERATE GLOBAL HYPOKINESIS DOPPLER/COLOR FLOW: MILD TRICUSPID REGURGITATION. COMMENTS: MODERATE GLOBAL HYPOKINESIS. MILD TRICUSPID REGURGTITATION. EJECTION FRACTION 35-40%. MITRAL ANNULAR CALCIFICATION. AORTIC SCLEROSIS. NO STENOSIS. TECHNOLOGIST: MELLO GORMAN
[2019-10-31] MEDS: FUROSEMIDE 40 MG/4 ML VIAL IV SCH ×2 (15:11→16:56)
--- NOTE | 2019-10-31 15:47 | P.PN ---
Subjective Date of Service: 10/31/19 Primary Care Provider: Dr. Briones Chief Complaint: respiratory failure, CHF exacerbation Subjective: Improving (Patient much better. Patient on BiPAP.) Physical Examination - Vital Signs Temperature: 97.5 F Blood Pressure: 121/65 Pulse: 94 Respirations: 18 Pulse Ox (%): 98 - Physical Exam General: Alert, Cooperative HEENT: Atraumatic Neck: Supple Respiratory: Crackles/rales Cardiovascular: Regular rate/rhythm Gastrointestinal: Normal bowel sounds, Non-distended Integumentary: Tenderness/swelling (Edema to the lower extremities noted) Neurological: Normal speech, Normal strength at 5/5 x4 extr, Normal tone - Studies Laboratory Data (last 24 hrs) 10/31/19 00:00: PT 11.7, INR 0.99 10/31/19 00:00: WBC 23.1 H*, Hgb 12.9, Hct 39.9, Plt Count 398 10/31/19 00:00: Sodium 139, Potassium 3.9, BUN 18, Creatinine 1.52 H, Glucose 372 H, Magnesium 2.0, Total Bilirubin 0.3, AST 24, ALT 24, Alkaline Phosphatase 50, Lipase 226 Microbiology Data (last 24 hrs): 10/31/19 00:18 Nasopharnyx Influenza Type A Antigen Screen - Final 10/31/19 00:18 Nasopharnyx Influenza Type B Antigen Screen - Final Medications List Reviewed: Yes Assessment & Plan Discharge Plan: Home Plan to discharge in: Greater than 2 days Physician Review Additional Text: Impression: Acute on Chronic Respiratory failure secondary to acute on chronic systolic CHF complicated with Acute Coronary Syndrome Diabetes mellitus type 2 Hypertension Hyperlipidemia Possible atypical pneumonia Acute on chronic renal disease stage III Plan: Acute on Chronic Respiratory failure secondary to acute on chronic systolic CHF complicated with Acute Coronary Syndrome: Will continue to monitor closely. Will provide oxygen. Maintain above 93%. Patient placed on Lovenox. Aspirin, Plavix, statin medication and beta-jose added. Discuss with cardiology. Will continue with diuresis. Patient will likely require heart catheterization as an outpatient. Will continue to monitor closely. Diabetes mellitus type 2: Will monitor Accu-Cheks and provide sliding scale Hypertension: Continue medication. Will monitor and adjust accordingly. Hyperlipidemia: Continue medication. Possible atypical pneumonia: Patient started on medication. Will monitor closely. Pulmonology consulted. Acute on chronic renal disease stage III: Will monitor closely. Nephrology consulted. Time Spent Managing Pts Care (In Minutes): 55
[2019-10-31] MEDS: METOPROLOL TAR 25 MG TAB PO SCH (17:14)
[2019-10-31] MEDS: CLOPIDOGREL 75 MG TABLET PO SCH (17:16)
[2019-10-31 20:08] LABS: Urine Appearance CLEAR; Urine Bilirubin NEGATIVE (NEG); Urine Blood NEGATIVE (NEG); Urine Color YELLOW; Urine Glucose NEGATIVE (NEG); Urine Protein NEGATIVE (NEG); Urine Urobilinogen 0.2 mg/dL (0.2-1.0); Urine pH 5.5 (5.0-7.0)
[2019-10-31 20:09] LABS: Urine Microscopic Reflex NO UMIC
[2019-10-31] MEDS ORDERED: ATORVASTATIN 40 MG TAB PO SCH (21:00)
[2019-10-31 22:16] LABS: CKMB Creatine Kinase MB 6.1 ng/mL (0.3-3.6)
[2019-10-31 22:20] LABS: Troponin I 2.57 ng/mL (0.0-0.045)
--- NOTE | 2019-10-31 23:43 | CON ---
Date of Consultation: 10/31/[address] Gaston on 10/31/2019. Reason For Consultation: Congestive heart failure. History Of Present Illness: Ms. Ordonez is a 79-year-old white woman. She has a history of hyperten george, diabetes, dyslipidemia. Had seen me in the office only a day prior to this with episodes of ch est tightness and shortness of breath and she was scheduled to have an echocardiogram and a stress te st as an outpatient. However, she came in overnight with flash pulmonary edema. Had some chest pain along with that. Had some nausea and diaphoresis. Denied PND, orthopnea, pedal edema, palpitations , or syncope. Denied any fever or chills, but has had a cough for a couple of weeks. Symptoms start ed suddenly. Allergies: NONE. Review of Systems: Negative. Social History: Negative. Family History: Negative. Medications: At home include, Norvasc, aspirin, insulin, Lipitor, and metformin. Physical Examination: General: When I saw her, she was on a BiPAP with good oxygen saturation, sinus rhythm. No acute dis tress. HEENT: Negative. Neck: Supple without any bruit, lymphadenopathy, JVD, or thyromegaly. Chest: Reveals rales at both bases. Cardiac: Revealed a regular rhythm and rate without any murmurs, gallops, or rubs. Abdomen: Obese, but benign. Extremities: Revealed no clubbing, cyanosis, or edema. Skin: Dry and intact. Psychologic: Psychologically, she was normal. Neurological: She was normal. Pulses were present in the dorsalis pedis and posterior tibial bilate rally. Diagnostic Data: Glucose was 191, troponin of 0.76. The EKG showed left bundle-branch block with si nus tachycardia. White count was 23,000, creatinine is 1.52, PO2 was 152, pCO2 28, pH was 7.62. Ech ocardiogram in 2013, was negative. Chest x-ray shows CHF versus pneumonia. Impression And Plan: 1.Acute congestive heart failure, most likely systolic. Echocardiogram is pending. We need to diur cely her. Continue oxygen. Continue her aspirin, put her on Lovenox. I would stop the Norvasc for n ow and consider carvedilol. Certainly, an VICK inhibitor may be helpful as well. We will need to mert ch her creatinine meanwhile. 2.Diabetes, poorly controlled. 3.Elevated white count with history of cough and a chest x-ray showing possible pneumonia. I would definitely treat her with antibiotics. Her troponin elevation is concerning especially with history of chest tightness and congestive heart failure. However, I would prefer to delay a heart catheteriz ation until her white count is improved and we will see what her creatinine does with diuresis. If a ll goes well, hopefully we will send her home in the next day or 2 and I will set up a catheterizatio n as an outpatient. The case was discussed with Dr. Gaston. EMANUEL/REMY Voice ID: [id number] Report ID: [id number]
[2019-11-01] MEDS ORDERED: ENOXAPARIN 80 MG/0.8 ML SQ SCH (05:00)
[2019-11-01] MEDS: METOPROLOL TAR 25 MG TAB PO SCH (05:26)
[2019-11-01 06:30] VITALS: BMI 26.6
[2019-11-01 06:40] LABS: Absolute Lymphocytes (CBC) 1.4 K/uL (0.7-4.9); Basophils % 0.7 % (0-1.3); Hematocrit 37.3 % (36.0-45.0); Lymphocytes % 17.4 % (15.3-44.8); MPV 8.7 fL (7.6-11.3); RBC Red Blood Cell Count 4.09 M/uL (3.86-4.86)
[2019-11-01 06:41] LABS: Protime INR 1.09
[2019-11-01 06:58] LABS: Albumin 3.7 g/dL (3.4-5.0); Bilirubin Total 0.5 mg/dL (0.2-1.0); Magnesium 1.8 mg/dL (1.8-2.4); Potassium 3.5 mmol/L (3.5-5.1); Protein, Total 7.5 g/dL (6.4-8.2)
[2019-11-01] MEDS: INSULIN -REGULAR HUMAN 50 UNIT/0.5 ML ML SQ SCH ×2 (07:30→12:55)
[2019-11-01] MEDS ORDERED: CEFTRIAXONE/SWI 1gm 1 GM/10 ML SYR IV SCH (09:00)
[2019-11-01] MEDS ORDERED: ASPIRIN 81 MG CHEWABLE TABLET PO SCH (09:00)
[2019-11-01] MEDS: FUROSEMIDE 40 MG/4 ML VIAL IV SCH (09:00)
[2019-11-01] MEDS ORDERED: ASPIRIN 325 MG TAB PO SCH (09:00)
[2019-11-01] MEDS ORDERED: AZITHROMYCIN IV 500 MG in NA CHLORIDE 0.9% 250 ML IVPB SCH (09:00)
[2019-11-01] MEDS ORDERED: CEFTRIAXONE 1 GM/NS 50 ML 1 GM/50 ML BAG IV SCH (09:00)
[2019-11-01] MEDS ORDERED: MAGNESIUM SULFATE 1 gm IVPB 1 GM/100 ML BAG IV ONE (09:00)
[2019-11-01 09:16] VITALS: O2SAT 95
--- NOTE | 2019-11-01 10:12 | P.CNS ---
Date of Consult: 11/01/19 Primary Care Provider: Dr. Briones Chief Complaint: respiratory failure, CHF exacerbation History of Present Illness: Patient is 79 years of age admitted with acute onset of shortness of breath been having problems for the past 3 weeks was doing relatively well until the day of admission when she became acutely worse at dyspnea on mild exertion had to be carried to the emergency room was found to have congestive heart failure pulmonary edema as not doing much better. There is no prior history of cardiopulmonary problems denies any lower extremity edema orthopnea or PND doing much better on diuretics echocardiogram showed congestive heart failure CT scan shows bilateral interstitial changes with bilateral effusion consistent with congestive heart failure Allergies No Known Allergies Allergy (Verified 10/31/19 04:53) Home Medications: Amlodipine Besylate 10 mg PO DAILY 10/31/19 Aspirin [Low Dose Aspirin EC] 81 mg PO DAILY 10/31/19 Atorvastatin Calcium 40 mg PO DAILY 10/31/19 Cholecalciferol (Vitamin D3) [Vitamin D3] 2 tab PO DAILY 10/31/19 Cyanocobalamin (Vitamin B-12) [Vitamin B12] 1,000 mg PO DAILY 10/31/19 Diphenhydramine [Benadryl Tab/Cap] 2 cap PO BEDTIME 10/31/19 Docusate [Colace Cap] 100 mg PO DAILY 10/31/19 Doxycycline Hyclate 20 mg PO BID 10/31/19 Insulin Glargine,Hum.rec.anlog [Basaglar Kwikpen U-100] 40 unit SQ DAILY Iron 65 mg PO DAILY 10/31/19 Magnesium Oxide [Magnesium] 2 tab PO DAILY 10/31/19 Meloxicam 7.5 mg PO DAILY 10/31/19 Metformin HCl 1,000 mg PO BID 10/31/19 Multivit-Minerals/Folic/Ginkgo [One Daily Women's 50+ Tablet] 1 each PO DAILY Niacin (Inositol Niacinate) [Niacin 500 mg Capsule] 500 mg PO DAILY 10/31/19 Ubidecarenone [Co Q-10] 400 mg PO DAILY 10/31/19 - Past Medical/Surgical History Diabetic: Yes -: DIABETES -: hyperlipidemia -: back surgery -: carpal tunnel surgery -: hip surgery - Social History Alcohol use: No CD- Drugs: No Caffeine use: Yes Place of Residence: Home Review of Systems 10-point ROS is otherwise unremarkable Physical Examination Temp Pulse Resp BP Pulse Ox 97.2 F 82 18 117/65 98 11/01/19 08:00 11/01/19 08:00 11/01/19 08:00 11/01/19 08:00 11/01/19 08:00 General: Alert, In no apparent distress, Oriented x3 Neck: Supple Respiratory: Clear to auscultation bilaterally Cardiovascular: No edema, Regular rate/rhythm Gastrointestinal: Normal bowel sounds, Soft and benign Musculoskeletal: No clubbing, No swelling - Problems (1) Congestive heart disease Current Visit: Yes Status: Acute Plan: Patient is 79 years of age admitted with acute congestive heart failure mostly left ventricular dysfunction elevated troponins patient has risk factors for coronary artery disease no prior history of cardiopulmonary problems is never smoked white count is now normal patient was in acute respiratory alkalosis is doing much better now Dc all antibiotics change to p.o. Lasix patient has left ventricular dysfunction on the echo doubt sepsis chest x-ray has improved room- air oxygenation satisfactory change to p.o. Lasix patient's troponins was significantly elevated Qualifiers: Heart failure type: systolic Heart failure chronicity: acute Qualified Code(s): I50.21 - Acute systolic (congestive) heart failure
[2019-11-01] MEDS: NIACIN 500 MG SR TAB PO SCH (10:14)
[2019-11-01] MEDS: CLOPIDOGREL 75 MG TABLET PO SCH (10:15)
[2019-11-01] MEDS: CYANOCOBALAMIN 1,000 MCG TAB PO SCH (10:15)
[2019-11-01] MEDS ORDERED: POTASSIUM 25 MEQ EFFERV TAB PO SCH (11:00)
[2019-11-01] MEDS ORDERED: SACUBITRIL/VALSARTAN 24/26 MG TAB PO SCH (11:00)
[2019-11-01 12:03] VITALS: BP 108/64; TEMP 97.7
--- NOTE | 2019-11-01 12:03 | P.DS ---
Admission Date: 10/31/19 Discharge Date: 11/01/19 Primary Care Provider: Dr. Briones Reason for Admission: respiratory failure, CHF exacerbation Consultations: Dr. Hogue - Problems (1) Congestive heart disease Status: Acute Qualifiers: Heart failure type: systolic Heart failure chronicity: acute Qualified Code(s): I50.21 - Acute systolic (congestive) heart failure (2) Diabetes type 2, controlled Status: Chronic Qualifiers: Diabetes mellitus ferry terminal agent insulin use: with ferry terminal agent use Diabetes mellitus complication status: without complication Qualified Code(s): E11.9 - Type 2 diabetes mellitus without complications; Z79.4 - care home (current) use of insulin (3) Hypertension Status: Chronic Qualifiers: Hypertension type: essential hypertension Qualified Code(s): I10 - Essential (primary) hypertension Brief History of Present Illness: This is a 79-year-old patient who was admitted to the hospital after being treated in the emergency room for acute congestive heart failure and elevated creatinine with possible pneumonia. Over the past couple days patient has done remarkably well. Hospital Course: Patient was treated for possible atypical pneumonia along with acute kidney injury secondary to prerenal azotemia and acute congestive heart failure. Consults were done by pulmonology and cardiology. It was found that patient does not have an acute pulmonary infection. Patient was thoroughly diuresed and medications were adjusted. The patient was also placed on 2 new medications carvedilol and entresto. Today patient has been able to ambulate with only minimal shortness of breath which is drastic improvement for her. Patient requiring no oxygen at this time. Patient able to eat. Vitals have remained stable. At this time patient is ready to go home which all consulting physicians agree. Will follow closely with them in the next couple weeks. <Lavon Bush - Last Filed: 11/01/19 11:56> Admission Date: 10/31/19 Discharge Date: 11/01/19 <Cali Gaston - Last Filed: 11/01/19 21:20> Disposition: ROUTINE DISCHARGE Discharge Condition: GOOD Vital Signs/Physical Exam: Temp Pulse Resp BP Pulse Ox 97.2 F 82 18 117/65 98 11/01/19 08:00 11/01/19 08:00 11/01/19 08:00 11/01/19 08:00 11/01/19 08:00 General: Alert, In no apparent distress, Oriented x3, Cooperative HEENT: PERRLA, Mucous membr. moist/pink Neck: Supple, 2+ carotid pulse no bruit, JVD not distended, No Thyromegaly Respiratory: Clear to auscultation bilaterally, Normal air movement Cardiovascular: No edema, Normal pulses, Regular rate/rhythm, Normal S1 S2, No gallops, No rubs, No murmurs Capillary refill: <2 Seconds Gastrointestinal: Normal bowel sounds, Soft and benign, Non-distended, No tenderness Musculoskeletal: No clubbing, No swelling, No contractures, No erythema, No tenderness, No warmth Integumentary: No rashes, No breakdown, No significant lesion, No tenderness/ swelling, No erythema, No warmth, No cyanosis Neurological: Normal gait, Normal speech, Normal strength at 5/5 x4 extr, Normal tone, Sensation intact, Cranial nerves 3-12 intact, Normal reflexes 2+, Normal affect Laboratory Data at Discharge: WBC 8.0 K/uL (4.3-10.9) D 11/01/19 06:25 Hgb 12.5 g/dL (12.0-15.0) 11/01/19 06:25 Hct 37.3 % (36.0-45.0) 11/01/19 06:25 Plt Count 350 K/uL (152-406) 11/01/19 06:25 PT 12.8 SECONDS (9.5-12.5) H 11/01/19 06:25 INR 1.09 11/01/19 06:25 Sodium 137 mmol/L (136-145) 11/01/19 06:25 Potassium 3.5 mmol/L (3.5-5.1) 11/01/19 06:25 BUN 19 mg/dL (7-18) H 11/01/19 06:25 Creatinine 0.91 mg/dL (0.55-1.3) 11/01/19 06:25 Glucose 151 mg/dL (74-106) H 11/01/19 06:25 Magnesium 1.8 mg/dL (1.8-2.4) 11/01/19 06:25 Total Bilirubin 0.5 mg/dL (0.2-1.0) 11/01/19 06:25 AST 30 U/L (15-37) 11/01/19 06:25 ALT 28 U/L (12-78) 11/01/19 06:25 Alkaline Phosphatase 39 U/L (45-117) L 11/01/19 06:25 Troponin I 2.57 ng/mL (0.0-0.045) H* 10/31/19 21:42 Triglycerides 172 mg/dL (<150) H 10/31/19 06:04 Cholesterol 127 mg/dL (<200) 10/31/19 06:04 HDL Cholesterol 42 mg/dL (40-60) 10/31/19 06:04 Cholesterol/HDL Ratio 3.02 10/31/19 06:04 Lipase 226 U/L (73-393) 10/31/19 00:00 <Lavon Bush - Last Filed: 11/01/19 11:56> Vital Signs/Physical Exam: Temp Pulse Resp BP Pulse Ox 97.7 F 87 18 108/64 94 11/01/19 12:00 11/01/19 12:00 11/01/19 12:00 11/01/19 12:00 11/01/19 12:00 Laboratory Data at Discharge: WBC 8.0 K/uL (4.3-10.9) D 11/01/19 06:25 Hgb 12.5 g/dL (12.0-15.0) 11/01/19 06:25 Hct 37.3 % (36.0-45.0) 11/01/19 06:25 Plt Count 350 K/uL (152-406) 11/01/19 06:25 PT 12.8 SECONDS (9.5-12.5) H 11/01/19 06:25 INR 1.09 11/01/19 06:25 Sodium 137 mmol/L (136-145) 11/01/19 06:25 Potassium 3.5 mmol/L (3.5-5.1) 11/01/19 06:25 BUN 19 mg/dL (7-18) H 11/01/19 06:25 Creatinine 0.91 mg/dL (0.55-1.3) 11/01/19 06:25 Glucose 151 mg/dL (74-106) H 11/01/19 06:25 Magnesium 1.8 mg/dL (1.8-2.4) 11/01/19 06:25 Total Bilirubin 0.5 mg/dL (0.2-1.0) 11/01/19 06:25 AST 30 U/L (15-37) 11/01/19 06:25 ALT 28 U/L (12-78) 11/01/19 06:25 Alkaline Phosphatase 39 U/L (45-117) L 11/01/19 06:25 Troponin I 2.57 ng/mL (0.0-0.045) H* 10/31/19 21:42 Triglycerides 172 mg/dL (<150) H 10/31/19 06:04 Cholesterol 127 mg/dL (<200) 10/31/19 06:04 HDL Cholesterol 42 mg/dL (40-60) 10/31/19 06:04 Cholesterol/HDL Ratio 3.02 10/31/19 06:04 Lipase 226 U/L (73-393) 10/31/19 00:00 <Cali Gaston - Last Filed: 11/01/19 21:20> Diet: ADA Activity: Ad nahomy <Lavon uBsh - Last Filed: 11/01/19 11:56> Patient Discharge Instructions: 1. Patient will follow up with her PCP within 1 week to follow up this hospitalization. 2. Patient presented with acute on chronic systolic CHF. Patient was diuresed. Patient seen by Cardiology. Medications have been adjusted. At discharge patient will continue with Lasix 40 mg daily, Lopressor 12.5 mg 1 pill twice daily, Entresto 24/26 mg 1 pill twice daily, aspirin 81 mg daily. Recommend to continue with 1500 cc per day fluid restriction and low-salt diet. She is to monitor her weight daily. If her weight increases by more than 5 lb she is to contact cardiology or her PCP for further recommendation. Recommend follow up with cardiology in 1-2 weeks to follow up this hospitalization. 3. Patient with diabetes mellitus type 2. Patient will continue her insulin regimen. Time spent managing pt's care (in minutes): 55 <Cali Gaston - Last Filed: 11/01/19 21:20> Home Medications: Aspirin [Low Dose Aspirin EC] 81 mg PO DAILY 10/31/19 Atorvastatin Calcium 40 mg PO DAILY 10/31/19 Cholecalciferol (Vitamin D3) [Vitamin D3] 2 tab PO DAILY 10/31/19 Docusate [Colace Cap*] 100 mg PO DAILY 10/31/19 Doxycycline Hyclate 20 mg PO BID 10/31/19 Insulin Glargine,Hum.rec.anlog [Arlenaglpamela Hernandezpen U-100] 40 unit SQ DAILY Iron 65 mg PO DAILY 10/31/19 Magnesium Oxide [Magnesium] 2 tab PO DAILY 10/31/19 Meloxicam 7.5 mg PO DAILY 10/31/19 Metformin HCl 1,000 mg PO BID 10/31/19 Multivit-Minerals/Folic/Ginkgo [One Daily Women's 50+ Tablet] 1 each PO DAILY Cyanocobalamin [Vitamin B-12*] 500 mcg PO DAILY tab 11/01/19 Furosemide [Lasix*] 40 mg PO DAILY #30 tab 11/01/19 Metoprolol Tartrate [Lopressor*] 12.5 mg PO BID 6AM 6PM #60 tab 11/01/19 Sacubitril/Valsartan [Entresto 24 mg-26 mg Tablet] 1 tab PO BID 1 Days #60 tab 11/01/19 Ubidecarenone [Coenzyme Q10*] 200 mg PO DAILY cap 11/01/19 New Medications: Furosemide [Lasix*] 40 mg PO DAILY #30 tab Metoprolol Tartrate [Lopressor*] 12.5 mg PO BID 6AM 6PM #60 tab Sacubitril/Valsartan [Entresto 24 mg-26 mg Tablet] 1 tab PO BID 1 Days #60 tab Followup: Gunner Alfred MD [ACTIVE - CAN ADMIT] - 1-2 Weeks (locomotive mechanic- call to schedule an appointment ) Epi Hogue MD [ACTIVE - CAN ADMIT] - 1-2 Weeks (computer programming supervisor- call to schedule an appointment/possible cardiac catheterization ) Julia Briones DO [Primary Care Provider] - 2-3 Days (PCP- call to schedule an appointment )
--- NOTE | 2019-11-01 15:57 | PN ---
Date of Progress Note: 10/31/2019 Ms. Ordonez was admitted on 10/31/2019 and seen on 10/31/2019 with acute pulmonary edema. This has r esolved after using diuretics. Echocardiogram showed an ejection fraction of 35% with moderate globa l hypokinesis. She had significantly elevated troponin and BNP. Creatinine is adequate. The case w as discussed with the primary care physician. We will stop the Norvasc, start Coreg, start Entresto. Continue Lasix. I discussed the case with Dr. Ocasio. He does not feel that she has an actual in fection. Her white count is back to normal. She has had reactive elevation in her white count when she came in. It was 28,000. Dr. Ocasio does not see the need of continuing antibiotics. She is fe eling great this morning. No symptoms. No rales. No edema. I am comfortable with her going home. I will set her up for an outpatient catheterization next week. EMANUEL/REMY Voice ID: [id number] Report ID: [id number]
[2019-11-02] MEDS ORDERED: FUROSEMIDE 40 MG/4 ML VIAL IV SCH (09:00)
[2019-11-02] MEDS ORDERED: FUROSEMIDE 40 MG TABLET PO SCH (09:00)
== END 2019-11-01 14:40 | disposition home or self-care (01) ==
LOC: ER 23:49 → INTOOBSV 10-31 05:15 → ERHOLD 10-31 05:15 → 4TH 10-31 13:47
PROVIDERS: ADMIT Internal Medicine; ATTEND Internal Medicine
DX: I50.23 Acute on chronic systolic (congestive) heart failure (principal); J96.20 Acute and chronic respiratory failure, unspecified whether with hypoxia or hypercapnia; I13.0 Hypertensive heart and chronic kidney disease with heart failure and stage 1 through stage 4 chronic kidney disease, or unspecified chronic kidney disease; N18.3 Chronic kidney disease, stage 3 (moderate); E11.22 Type 2 diabetes mellitus with diabetic chronic kidney disease; N17.9 Acute kidney failure, unspecified; E78.5 Hyperlipidemia, unspecified; I24.9 Acute ischemic heart disease, unspecified
CPT/HCPCS: 96365; 96368; 93005; 93306; 87040 ×2; 87070; 85025 ×2; 80048; 36415 ×2; 83735 ×2; 82550; 87205; 85610 ×2; 80061; 82947 ×6; 80076; 83605 ×5; 84443; 87077; 87186; 83036; 84484 ×4; 82553 ×3; 83690; 80053; 84145; 83880; 87804 ×2; 71275; 71045 ×2; 82805 ×2; 94660; 96375; 96372; 99291; 99292; 96366; Q9967; G0379; J1940 ×3; J0456 ×2; J3475; J1650 ×2; J0696; J7030 ×2; G0378 ×3; 81003; 81015

== ENCOUNTER 2019-11-07 11:19 | Day surgery (SDC) | payer OTHER ==
[2019-11-05 15:23] LABS: Protime INR 1.04
--- OUTSIDE RECORDS SUMMARY | 2019-11-07 11:21 | XMS REPORT ---
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
--- OUTSIDE RECORDS SUMMARY | 2019-11-07 11:21 | XMS REPORT ---
:1940 Author Organization [employer] Care Team Providers Name Role Phone Briones, Na Provider Role Unavailable Allergies, Adverse Reactions, Alerts Substance Reaction Event Type N.K.D.A. 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.4 Active Problem Constipation K59.00 Active Problem Diabetic neuropathy E11.40 Active Problem Hemorrhoids K64.9 Active Problem GERD (gastroesophageal reflux K21.9 Active disease) Problem Knee pain M25.569 Active Problem Peripheral neuropathy G62.9 Active Problem Anemia D64.9 Active Medications Medication Code Code Instructions Start End Status Dosage System Date Date Metformin HCl [facility] 60501870202 1000 MG Orally Active 1 tablet Twice a day with meals Amoxicillin [facility] 65189639800 500 MG Orally Active 1 capsule every 8 hrs Lipitor ND 13120334501 40 MG Orally Active 1 tablet Once a day Meloxicam [facility] 04934616925 7.5 MG Orally Active 1 tablet Once a day Gabapentin [facility] 04307361342 600 MG Orally Active 1 tablet twice a day Doxycycline ND 55629351432 20 MG Orally Active 1 tablet Hyclate Twice a day Cephalexin ND 40557881728 500 MG Orally Active 1 capsule every 12 hrs Lantus SoloStar [facility] 31449253817 100 UNIT/ML Active not defined Subcutaneous Basaglar [facility] 53142242192 100 UNIT/ML Active 40 units KwikPen Subcutaneous daily Aspirin 81 ND 96989187081 81 MG Orally Active 1 tablet Once a day Lipitor ND 09928083630 40 MG Orally Active 1 tablet Once a day Meloxicam [facility] 17848260139 7.5 MG Orally Active 1 tablet Once a day Basaglar [facility] 07191173945 100 UNIT/ML Active 40 units KwikPen Subcutaneous daily CoQ10 ND 52946430450 200 MG Orally Active 1 capsule Once a day with a meal Vitamin B12 [facility] 69810278237 1000 MCG Orally Active 1 tablet Once a day Gabapentin [facility] 82997879551 600 MG Orally Active 1 tablet twice a day Dicyclomine HCl [facility] 26376687559 10 MG Orally Nov 09, Active 1 capsules Four times a 2018 day Centrum Silver [facility] 88684631313 - Orally Active as directed Aspir-Low [facility] 01626621972 81 MG Orally Active 1 tablet Once a day Benadryl [facility] 0 Active not defined Flonase [facility] 12724606256 50 MCG/ACT Active 2 spray in Nasally Once a each day nostril Amlodipine [facility] 19766286518 10 MG Orally Active 1 tablet Besylate Once a day D3 Adult [facility] 19076065849 1000 UNIT Active 1 tablet Orally Once a day Magnesium [facility] 58712695747 250 MG Orally Active 1 tablet Once a day with a meal [place] [facility] 60823969750 31G X 5 MM February Active as directed 2017 Stool Softener [facility] 47578555337 100 MG Orally Active 1 capsule Once a day as needed Vitamin B-12 [facility] 86792885022 1000 MCG Orally Active 1 tablet Once a day Restasis [facility] 01024608443 0.05 % Active 1 drop into Ophthalmic affected Twice a day eye Metformin HCl [facility] 49327503627 1000 MG Orally Active 1 tablet Twice a day with meals Claritin [facility] 44033323432 10 MG Orally Active 1 tablet Once a day Niacin [facility] 99823369230 500 MG Orally Active 1 tablet Once a day with food Amlodipine [facility] 31161170180 10 MG Orally Active 1 tablet Besylate Once a day Results No Known Results Immunizations Vaccine Administration Date FluAD Aug 26, 2019 Summary Purpose [employer] Submission
--- OUTSIDE RECORDS SUMMARY | 2019-11-07 11:22 | XMS REPORT ---
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
--- OUTSIDE RECORDS SUMMARY | 2019-11-07 11:22 | XMS REPORT ---
[...] E11.22 Active diabetic chronic kidney disease Problem longterm current use of insulin Z79.4 Active Problem Constipation K59.00 Active Problem Diabetic neuropathy E11.40 Active Problem Hemorrhoids K64.9 Active Problem GERD (gastroesophageal reflux K21.9 Active disease) Problem Knee pain M25.569 Active Problem Peripheral neuropathy G62.9 Active Problem Benign essential HTN I10 Active Problem Anemia D64.9 Active Problem Diabetes E11.9 Active Medications Medication Code Code Instructions Start End Status Dosage System Date Date Meloxicam [facility] 22455170157 7.5 MG Orally Active 1 tablet Once a day Metformin HCl [facility] 19850505597 1000 MG Orally Active 1 tablet Twice a day with meals Flonase ND 28541174306 50 MCG/ACT Active 2 spray in Nasally Once a each day nostril Amlodipine [facility] 99272204881 10 MG Orally Active 1 tablet Besylate Once a day Vitamin B-12 ND 89956743727 1000 MCG Orally Active 1 tablet Once a day Benadryl NDC 0 Active not defined Meloxicam [facility] 97547696117 7.5 MG Orally April 04, Active 1 tablet Once a day 2019 Amlodipine ND 79425493077 10 MG Orally Active 1 tablet Besylate Once a day Restasis [facility] 76191743119 0.05 % Active 1 drop into Ophthalmic affected Twice a day eye Metformin HCl [facility] 55269851647 1000 MG Orally Active 1 tablet Twice a day with meals Niacin ND 33701535351 500 MG Orally Active 1 tablet Once a day with food Lantus SoloStar [facility] 64722056032 100 UNIT/ML Active not defined Subcutaneous [place] [facility] 35867763574 31G X 5 MM February Active as directed 2017 Cephalexin [facility] 71348043451 500 MG Orally Active 1 capsule every 12 hrs D3 Adult [facility] 96432531563 1000 UNIT Active 1 tablet Orally Once a day Gabapentin [facility] 89281261794 600 MG Orally Active 1 tablet twice a day Lipitor [facility] 10825660491 40 MG Orally Active 1 tablet Once a day Magnesium [facility] 22659239175 250 MG Orally Active 1 tablet Once a day with a meal CoQ10 [facility] 65557373888 200 MG Orally Active 1 capsule Once a day with a meal Doxycycline [facility] 77910100263 20 MG Orally Active 1 tablet Hyclate Twice a day Lipitor [facility] 30152045905 40 MG Orally Active 1 tablet Once a day Basaglar [facility] 09537005226 100 UNIT/ML Active 40 units KwikPen Subcutaneous daily Aspir-Low [facility] 99863910272 81 MG Orally Active 1 tablet Once a day Stool Softener [facility] 55198275365 100 MG Orally Active 1 capsule Once a day as needed Amoxicillin [facility] 80875727157 500 MG Orally Active 1 capsule every 8 hrs Vitamin B12 [facility] 88737514864 1000 MCG Orally Active 1 tablet Once a day Dicyclomine HCl [facility] 14997872692 10 MG Orally Nov 09, Active 1 capsules Four times a 2017 day Centrum Silver [facility] 04491369691 - Orally Active as directed Aspirin 81 ND 02689771887 81 MG Orally Active 1 tablet Once a day Basaglar [facility] 76927567153 100 UNIT/ML Active 40 units KwikPen Subcutaneous daily Gabapentin [facility] 72239702990 600 MG Orally Active 1 tablet twice a day Claritin [facility] 13512211830 10 MG Orally Active 1 tablet Once a day Results Name Result Date Reference Range Unit Abnormality Flag Chest Pa And Lat (2 Views) Summary Purpose [employer] Submission
--- OUTSIDE RECORDS SUMMARY | 2019-11-07 11:23 | XMS REPORT ---
:1940 Author Organization [employer] Care Team Providers Name Role Phone Briones, Na Provider Role Unavailable Allergies No Known Allergies Problems Problem Type Condition Code Onset Dates Condition Status Problem Controlled type 2 diabetes mellitus E11.9 Active without complication, without long-term current use of insulin Problem Chronic kidney disease, stage III N18.3 Active (moderate) Problem Seasonal allergic rhinitis due to J30.1 Active pollen Problem Acute on chronic systolic I50.23 Active congestive heart failure Problem Hemorrhoids K64.9 Active Problem Left carpal tunnel syndrome G56.02 Active Assessment Benign essential HTN I10 Active Problem Atherosclerosis I70.90 Active Problem Type 2 diabetes mellitus with E11.22 Active diabetic chronic kidney disease Problem computer terminal operator current use of insulin Z79.4 Active Problem Gastroesophageal reflux disease K21.0 Active with esophagitis Problem Irritable bowel syndrome with K58.0 Active diarrhea Problem Peripheral neuropathy G62.9 Active Problem Anemia D64.9 Active Problem Constipation K59.00 Active Problem Diabetic neuropathy E11.40 Active Problem Benign essential HTN I10 Active Problem Diabetes E11.9 Active Problem GERD (gastroesophageal reflux K21.9 Active disease) Problem Hyperlipidemia E78.5 Active Problem Knee pain M25.569 Active Problem Primary osteoarthritis involving M15.0 Active multiple joints Medications Medication Code Code Instructions Start End Status Dosage System Date Date Amlodipine [facility] 23729215169 10 MG Orally Inactive 1 tablet Besylate Once a day Gabapentin [facility] 88983925217 600 MG Orally Active 1 tablet twice a day Results No Known Results Summary Purpose eClinicalWorks Submission
--- OUTSIDE RECORDS SUMMARY | 2019-11-07 11:23 | XMS REPORT ---
:1940 Author Organization [employer] Care Team Providers Name Role Phone Briones, Na Provider Role Unavailable Allergies No Known Allergies Problems Problem Type Condition Code Onset Dates Condition Status Assessment snf current use of insulin Z79.4 Active Assessment Chronic kidney disease, stage III N18.3 Active (moderate) Assessment Hyperlipidemia E78.5 Active Assessment Atherosclerosis I70.90 Active Assessment Benign essential HTN I10 Active Problem Hyperlipidemia E78.5 Active Assessment Type 2 diabetes mellitus with E11.22 Active diabetic chronic kidney disease Problem Primary osteoarthritis involving M15.0 Active multiple joints Assessment Acute on chronic systolic I50.23 Active congestive heart failure Problem Controlled type 2 diabetes mellitus E11.9 Active without complication, without long-term current use of insulin Problem Chronic kidney disease, stage III N18.3 Active (moderate) Problem Seasonal allergic rhinitis due to J30.1 Active pollen Problem Acute on chronic systolic I50.23 Active congestive heart failure Problem Left carpal tunnel syndrome G56.02 Active Problem Hemorrhoids K64.9 Active Problem Atherosclerosis I70.90 Active Assessment Hospital discharge follow-up Z09 Active Problem Type 2 diabetes mellitus with E11.22 Active diabetic chronic kidney disease Problem snf current use of insulin Z79.4 Active Problem Gastroesophageal reflux disease K21.0 Active with esophagitis Problem Irritable bowel syndrome with K58.0 Active diarrhea Problem Peripheral neuropathy G62.9 Active Problem Anemia D64.9 Active Problem Constipation K59.00 Active Problem Diabetic neuropathy E11.40 Active Problem Benign essential HTN I10 Active Problem Diabetes E11.9 Active Problem GERD (gastroesophageal reflux K21.9 Active disease) Problem Knee pain M25.569 Active Medications Medication Code Code Instructions Start End Status Dosage System Date Date Pen Lefor [facility] [id number] 31G X 5 MM February Active as directed 2017 Gabapentin [facility] 35361886560 600 MG Orally Active 1 tablet twice a day Vitamin B-12 [facility] 93618260998 1000 MCG Orally Active 1 tablet Once a day Lasix [facility] 73975791900 40 MG Orally Active 1 tablet Once a day Stool Softener [facility] 78668272310 100 MG Orally Active 1 capsule Once a day as needed Meloxicam [facility] 49252307087 7.5 MG Orally Active 1 tablet Once a day Flonase [facility] 81211400356 50 MCG/ACT Active 2 spray in Nasally Once a each day nostril Metoprolol [facility] 46079062261 25 MG Orally Active 0.5 tablet Tartrate Twice a day with food Claritin [facility] 89559504704 10 MG Orally Active 1 tablet Once a day Aspir-Low [facility] 39262122998 81 MG Orally Active 1 tablet Once a day Centrum Silver [facility] 14321425623 - Orally Active as directed Vitamin B12 [facility] 88008040200 1000 MCG Orally Active 1 tablet Once a day Metformin HCl [facility] 92282690954 1000 MG Orally Active 1 tablet Twice a day with meals Restasis [facility] 59242832013 0.05 % Active 1 drop into Ophthalmic affected Twice a day eye Gabapentin [facility] 17266320781 600 MG Orally Active 1 tablet twice a day Entresto [facility] 67047619154 24/26mg oral Active one 24/26mg bid Aspirin 81 [facility] 20448652875 81 MG Orally Active 1 tablet Once a day Dicyclomine HCl [facility] 57437787396 10 MG Orally Nov 09, Active 1 capsules Four times a 2017 day Lipitor [facility] 66265959620 40 MG Orally Active 1 tablet Once a day FreeStyle Sol [facility] 08794479404 - daily Nov 05, Active as directed 14 Day Bertram 2019 Niacin ND 89104452483 500 MG Orally Active 1 tablet Once a day with food Basaglar ND 87148064999 100 UNIT/ML Active 40 units KwikPen Subcutaneous daily Basaglar [facility] 64370443381 100 UNIT/ML Active 40 units KwikPen Subcutaneous daily Metformin HCl ND 14888826484 1000 MG Orally Active 1 tablet Twice a day with meals Doxycycline ND 89787548649 20 MG Orally Active 1 tablet Hyclate Twice a day Amlodipine [facility] 61823317572 10 MG Orally Active 1 tablet Besylate Once a day D3 Adult [facility] 14486928824 1000 UNIT Active 1 tablet Orally Once a day Lipitor [facility] 16200430347 40 MG Orally Active 1 tablet Once a day Magnesium [facility] 74691864080 250 MG Orally Active 1 tablet Once a day with a meal CoQ10 [facility] 71948267618 200 MG Orally Active 1 capsule Once a day with a meal Cephalexin [facility] 86466368820 500 MG Orally Active 1 capsule every 12 hrs FreeStyle Sol [facility] 27146860150 - Nov 05, Active USE 14 Day Sensor 2019 DIRECTED EVERY 14 DAYS Results No Known Results Summary Purpose [employer]ClinicalWorks Submission
--- OUTSIDE RECORDS SUMMARY | 2019-11-07 11:23 | XMS REPORT ---
[...] Left carpal tunnel syndrome G56.02 Active Problem Atherosclerosis I70.90 Active Problem Type 2 diabetes mellitus with E11.22 Active diabetic chronic kidney disease Problem [facility] current use of insulin Z79.4 Active Problem [...] M15.0 Active multiple joints Medications Medication Code System Code Instructions Start End Date [facility] D[id number] MG Orally Nov 06, Active 1 tablet every 12 hours 2019 as needed prn anxiety Results No Known Results Summary Purpose eClinicalWorks Submission
--- OUTSIDE RECORDS SUMMARY | 2019-11-07 11:23 | XMS REPORT ---
[...] E11.22 Active diabetic chronic kidney disease Problem correction current use of insulin Z79.4 Active Problem [...] Medications Medication Code Code Instructions Start End Date Status Dosage System Date Niacin [facility] 84924502480 500 MG Orally Inactive 1 tablet Once a day with food Results No Known Results Summary Purpose eClinicalWorks Submission
[2019-11-07] MEDS ORDERED: NA CHLORIDE 0.9% 500 ML ONE (11:28)
[2019-11-07] MEDS ORDERED: NA CHLORIDE 0.9% 0 ML ONE (12:10)
[2019-11-07] MEDS ORDERED: HEPA 1000U/500MLS 1,000 UNIT/500 ML BAG IV ONE (12:10)
[2019-11-07] MEDS ORDERED: ATROPINE SULF 1 MG/10 ML SYR IV ONE (12:10)
[2019-11-07 12:17] VITALS: TEMP 97.2
[2019-11-07] MEDS ORDERED: MIDAZOLAM HCL 2 MG/2 ML INJ ONE (12:43)
[2019-11-07] MEDS ORDERED: FENTANYL CITR 100 MCG/2 ML ONE (12:44)
[2019-11-07 14:44] VITALS: O2SAT 94
[2019-11-07 15:21] VITALS: BP 128/67
--- NOTE | 2019-11-07 23:42 | OP ---
Surgeon: Epi Hogue MD Lifter/Driver: Naya Aragon. Reason For Admission: To perform a left heart catheterization, selective coronary arteriogram, and a n LV-gram. Indication: Congestive heart failure, moderate, 35% to 40% ejection fraction, left bundle branch blo ck, abnormal troponin. Procedure In Detail: The patient was brought to the solder making laborer as an outpatient, prepped and draped in the routine sterile fashion. Given Versed for sedation. A 6-Malaysian sheath introduced in the left a nd the right common femoral artery successfully. Angio-Seal was used to close the case. Angiography there was normal. A 6-Malaysian Nataly catheter left and right was used to cannulate the left main an d the right main respectively. The patient had perfectly normal coronaries. LV-gram showed an eject ion fraction of 35% to 40%, global hypokinesis, moderate that was done using a pigtail catheter. Lef t ventricular end-diastolic pressure was approximately 10 mmHg. There was no significant atheroscler osis. There were no complications. Blood Loss: 5 mL. Postoperative Diagnosis: Moderate congestive heart failure, normal coronaries. Plan: Plan is for medical treatment. Anesthesia: Total conscious sedation was 30 minutes. EMANUEL/REMY Voice ID: [id number] Report ID: [id number]
== END 2019-11-07 15:25 | disposition home or self-care (01) ==
LOC: CCL 11:19
PROC: 4A023N7 Measurement of Cardiac Sampling and Pressure, Left Heart, Percutaneous Approach (ICD-10-PCS; principal; 2019-11-07)
PROC: B201YZZ Plain Radiography of Multiple Coronary Arteries using Other Contrast (ICD-10-PCS; 2019-11-07)
DX: I44.7 Left bundle-branch block, unspecified (principal); R94.31 Abnormal electrocardiogram [ECG] [EKG]; I10 Essential (primary) hypertension; E78.5 Hyperlipidemia, unspecified; E11.9 Type 2 diabetes mellitus without complications; D50.9 Iron deficiency anemia, unspecified; I11.0 Hypertensive heart disease with heart failure; I50.9 Heart failure, unspecified
CPT/HCPCS: 36415; 85610; 82947; 85730; 93458; C1893; C1760; J2250; J3010; J7040; J0583

== ENCOUNTER 2023-09-21 09:16 | Emergency (ER) | payer OTHER ==
--- OUTSIDE RECORDS SUMMARY | 2023-09-21 09:22 | XMS REPORT | Continuity of Care Document ---
:1940 Author Organization [facility] t Address [address] [facility] [address] [place] [address] Care Team Providers Name Role Phone Madhav Baig Attending Clinician Unavailable Julia Briones Attending Clinician Unavailable Payers Payer Name Policy Type Policy Number Effective Date Expiration Date S joao [facility] [employer] 1 [id number] 2020 Common TRS/ERS MCR PPO 00:00:00 [facility] MEDICARE NOVITAS MB [id number] [facility] Problems Condition Condition Condition Status Onset Resolution Last Treating Co mments Source Name Details Category Date Date Treatment Clinician Date [id number] Chronic Problem Commo n kidney [facility] disease, - [facility] stage [facility] St (severe) [facility] Peripheral Peripheral Problem C ommon neuropathy neuropathy Sp dinesh [facility] Diabetic Diabetic Problem Commo n neuropathy neuropathy Sp [facility] Gastroesop GERD Problem Commo n hageal (gastroeso [facility] reflux phageal - [facility] disease reflux St disease) [facility] Anemia Anemia Problem Common [facility] Essential Benign Problem Common hypertensi essential Spi rit on HTN [facility] Knee pain Knee pain Problem Com mon [facility] 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 St (disorder) [facility] Hyperlipid Hyperlipid Problem C carolyn emia emia [facility] - [facility] [id number] Controlled Problem Co mmon type 2 [facility] diabetes - [facility] mellitus without [facility] complicati Medica l on, Center without long-term current use of insulin Diabetes Diabetes Problem Commo n mellitus DMII [facility] without without - [facility] complicati complicati St on ons [facility] Long-term nursing home Problem Com mon current current [facility] use of use of - [facility] insulin insulin [facility] Diabetic 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 - [facility] with St diabetic [facility] chronic [facility] kidney Center disease 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 Social History Social Habit Start Date Stop Date Quantity Comments Source History of Tobacco Use Co mmon [facility] Sex Assigned At Com mon [facility] Smoking Status Start Date Stop Date Source Never Smoker Common [facility] Medications Ordered Filled Start Stop Current Ordering Indication Dosage Frequency Signature Comments Components Source Medication Medication Date Date Medication? Clinician (SIG) Name Name Apolloempralph Ozempic 2022-11 No Ozempic 0.25 or 0.5 0.25 or 0.5 0-10 0.25 or MG/DOSE MG/DOSE 00:00: 0.5 00 MG/DOSE Furosemide Furosemide 2020-11 No 1{table QD Furosemide 40 MG 40 MG 2-15 t} 40 MG 00:00: 00 Furosemide Furosemide 2020-11 No 1{table QD Furosemide 40 MG 40 MG 2-15 t} 40 MG 00:00: 00 Furosemide Furosemide 2020-11 No 1{table QD Furosemide 40 MG 40 MG 2-15 t} 40 MG 00:00: 00 Entresto Entresto 2019-0 Yes Na Briones one Co mmon 49/51mg 49/51mg 7-05 [facility] 00:00: - [facility] Ativan Ativan 2018-11 Yes Na Briones 1 tablet Co mmon 2-18 as needed Spirit 00:00: [facility] Ativan 0.5 Ativan 0.5 2018-11 No 1{table Ativan 0.5 MG MG 2-18 t_as_ne MG 00:00: eded} 00 Ativan 0.5 Ativan 0.5 2018-11 No 1{table Ativan 0.5 MG MG 2-18 t_as_ne MG 00:00: eded} 00 Ativan 0.5 Ativan 0.5 2018-11 No 1{table Ativan 0.5 MG MG 2-18 t_as_ne MG 00:00: eded} 00 Ativan 0.5 Ativan 0.5 2018-11 No 1{table Ativan 0.5 MG MG 2-18 t_as_ne MG 00:00: eded} 00 Ativan 0.5 Ativan 0.5 2018-11 No 1{table Ativan 0.5 MG MG 2-18 t_as_ne MG 00:00: eded} 00 Ativan 0.5 Ativan 0.5 2018-11 No 1{table Ativan 0.5 MG MG 2-18 t_as_ne MG 00:00: eded} 00 Ativan 0.5 Ativan 0.5 2018-11 No 1{table Ativan 0.5 MG MG 2-18 t_as_ne MG 00:00: eded} 00 Ativan 0.5 Ativan 0.5 2018-11 No 1{table Ativan 0.5 MG MG 2-18 t_as_ne MG 00:00: eded} 00 Ativan 0.5 Ativan 0.5 2018-11 No 1{table Ativan 0.5 MG MG 2-18 t_as_ne MG 00:00: eded} 00 Ativan 0.5 Ativan 0.5 2018-11 No 1{table Ativan 0.5 MG MG 2-18 t_as_ne MG 00:00: eded} 00 Ativan 0.5 Ativan 0.5 2018-11 No 1{table Ativan 0.5 MG MG 2-18 t_as_ne MG 00:00: eded} 00 Ativan 0.5 Ativan 0.5 2018-11 No 1{table Ativan 0.5 MG MG 2-18 t_as_ne MG 00:00: eded} 00 Ativan 0.5 Ativan 0.5 2018-11 No 1{table Ativan 0.5 MG MG 2-18 t_as_ne MG 00:00: eded} 00 Ativan 0.5 Ativan 0.5 2018-11 No 1{table Ativan 0.5 MG MG 2-18 t_as_ne MG 00:00: eded} 00 Ativan 0.5 Ativan 0.5 2018-11 No 1{table Ativan 0.5 MG MG 2-18 t_as_ne MG 00:00: eded} 00 Ativan 0.5 Ativan 0.5 2018-11 No 1{table Ativan 0.5 MG MG 2-18 t_as_ne MG 00:00: eded} 00 Dicyclomine Dicyclomine 2017-11 Yes Na Briones 1 capsules Common HCl HCl 2-21 [facility] 00:00: - [facility] 00 [facility] Dicyclomine Dicyclomine 2017-11 No 1{capsu QID Dicyclomin HCl 10 MG HCl 10 MG 2-21 les} e HCl 10 00:00: MG 00 Dicyclomine Dicyclomine 2018- No 1{capsu QID Dicyclomin HCl 10 MG HCl 10 MG 2-21 les} e HCl 10 00:00: MG 00 Dicyclomine Dicyclomine 2018- No 1{capsu QID Dicyclomin HCl 10 MG HCl 10 MG 2-21 les} e HCl 10 00:00: MG 00 Dicyclomine Dicyclomine 2018- No 1{capsu QID Dicyclomin HCl 10 MG HCl 10 MG 2-21 les} e HCl 10 00:00: MG 00 Dicyclomine Dicyclomine 2018- No 1{capsu QID Dicyclomin HCl 10 MG HCl 10 MG 2-21 les} e HCl 10 00:00: MG 00 Dicyclomine Dicyclomine 2017- No 1{capsu QID Dicyclomin HCl 10 MG HCl 10 MG 2-21 les} e HCl 10 00:00: MG 00 Dicyclomine Dicyclomine 2018- No 1{capsu QID Dicyclomin HCl 10 MG HCl 10 MG 2-21 les} e HCl 10 00:00: MG 00 Dicyclomine Dicyclomine 2018- No 1{capsu QID Dicyclomin HCl 10 MG HCl 10 MG 2-21 les} e HCl 10 00:00: MG 00 Dicyclomine Dicyclomine 2018- No 1{capsu QID Dicyclomin HCl 10 MG HCl 10 MG 2-21 les} e HCl 10 00:00: MG 00 Dicyclomine Dicyclomine 2018- No 1{capsu QID Dicyclomin HCl 10 MG HCl 10 MG 2-21 les} e HCl 10 00:00: MG 00 Dicyclomine Dicyclomine 2018- No 1{capsu QID Dicyclomin HCl 10 MG HCl 10 MG 2-21 les} e HCl 10 00:00: MG 00 Dicyclomine Dicyclomine 2018- No 1{capsu QID Dicyclomin HCl 10 MG HCl 10 MG 2-21 les} e HCl 10 00:00: MG 00 Pen Concepcion Pen Concepcion 2017- Yes Na Briones as Common 02/02" 3/16" 4-24 directed [facility] 00:00: - [facility] 00 [facility] Pen Concepcion Pen Concepcion 2018-0 No Pen 02/02" 31G X 3" 31G X 4-24 Concepcion 5 MM 5 MM 00:00: 02/02" 31G 00 X 5 MM Pen Concepcion Pen Concepcion 2018-0 No Pen 02/02" 31G X 3" 31G X 4-24 Concepcion 5 MM 5 MM 00:00: 02/02" 31G 00 X 5 MM Pen Concepcion Pen Concepcion 2017-0 No Pen 02/02" 31G X 3" 31G X 4-24 Concepcion 5 MM 5 MM 00:00: 02/02" 31G 00 X 5 MM Pen Concepcion Pen Concepcion 2017-0 No Pen 02/02" 31G X 3" 31G X 4-24 Concepcion 5 MM 5 MM 00:00: 02/02" 31G 00 X 5 MM Pen Concepcion Pen Concepcion 2017-0 No Pen 02/02" 31G X 3" 31G X 4-24 Concepcion 5 MM 5 MM 00:00: 02/02" 31G 00 X 5 MM Pen Concepcion Pen Concepcion 2017-0 No Pen 02/02" 31G X 3" 31G X 4-24 Concepcion 5 MM 5 MM 00:00: 02/02" 31G 00 X 5 MM Pen Concepcion Pen Concepcion 2017-0 No Pen 02/02" 31G X 3" 31G X 4-24 Concepcion 5 MM 5 MM 00:00: 02/02" 31G 00 X 5 MM Pen Concepcion Pen Concepcion 2018-0 No Pen 02/02" 31G X 316" 31G X 4-24 Concepcion 5 MM 5 MM 00:00: 02/02" 31G 00 X 5 MM Pen Concepcion Pen Concepcion 2017-0 No Pen 02/02" 31G X 316" 31G X 4-24 Concepcion 5 MM 5 MM 00:00: 02/02" 31G 00 X 5 MM Pen Concepcion Pen Concepcion 2017-0 No Pen 02/02" 31G X 3/16" 31G X 4-24 Concepcion 5 MM 5 MM 00:00: 02/02" 31G 00 X 5 MM Pen Concepcion Pen Concepcion 2017-0 No Pen 02/02" 31G X 316" 31G X 4-24 Concepcion 5 MM 5 MM 00:00: 02/02" 31G 00 X 5 MM Pen Concepcion Pen Concepcion No Pen 16" 31G X 3/16" 31G X 4-24 Concepcion 5 MM 5 MM 00:00: 02/02" 31G 00 X 5 MM Pen Concepcion Pen Concepcion No Pen 316" 31G X 3/16" 31G X 4-24 Concepcion 5 MM 5 MM 00:00: 02/02" 31G 00 X 5 MM Amlodipine Amlodipine Yes Na Briones 1 tablet Common Besylate Besylate [facility] Lipitor Lipitor Yes Na Briones 1 tablet Co mmon [facility] Stool Stool Yes Na Briones 1 capsule Commo n Softener [facility] Meloxic[facility] Meloxicam Yes Na Briones 1 tablet [facility] FreeStyle FreeStyle Yes Na Briones USE Common Sol 14 Sol 14 DIRECTED Spi rit Day Sensor Day Sensor EVERY 14 - CHI DAYS [facility] Entresto Entresto Yes Na Briones one Comm on 24/mg 24/26mg [facility] Gabapentin Gabapentin Yes Na Briones 1 tablet [facility] Vitamin Vitamin Yes Na Briones 1 tablet Co mmon B-12 B-12 [facility] Restasis Restasis Yes Na Briones 1 drop Co mmon into [facility] eye [facility] Metformin Metformin Yes Na Briones 1 tablet Common HCl HCl with meals [facility] FreeStyle FreeStyle Yes Na Briones as Co on Sol 14 Sol 14 directed Spi rit Day Freedom Day Freedom - C HI [facility] Aspir-Low Aspir-Low Yes Na Briones 1 tablet [facility] Lasix Lasix Yes Na Briones 1 tablet [facility] Claritin Claritin Yes Na Briones 1 tablet [facility] Magnesium Magnesium Yes Na Briones 1 tablet Common with a [facility] meal [facility] Cephalexin Cephalexin Yes Na Briones 1 capsule [facility] Basaglar Basaglar Yes Na Briones 40 units Common KwikPen KwikPen [facility] Flonase Flonase Yes Na Briones 2 spray in Common each Spirit nostril [facility] CoQ10 CoQ10 Yes Na Briones 1 capsule Commo n with a Spirit meal [facility] Centrum Centrum Yes Na Briones as Common Silver Silver directed [facility] Vitamin B12 Vitamin B12 Yes Na Briones 1 tablet Common [facility] Basaglar Basaglar Yes Na Briones 40 units Common KwikPen KwikPen [facility] Doxycycline Doxycycline Yes Na Briones 1 tablet Common Hyclate Hyclate [facility] D3 Adult D3 Adult Yes Na Briones 1 tablet Common [facility] Metoprolol Metoprolol Yes Na Briones 0.5 tablet Common Tartrate Tartrate with food Sp dinesh [facility] Aspirin 81 Aspirin 81 Yes Na Briones 1 tablet Common [facility] Gabapentin Gabapentin Yes Na Briones 1 tablet Common [facility] Amlodipine Amlodipine Yes Na Briones 1 tablet Common Besylate Besylate [facility] FreeStyle FreeStyle No QD FreeStyle Sol 14 Sol 14 Sol 14 Day Freedom Day Freedom Day Freedom - - - Magnesium Magnesium No 1{table QD Magnesium 250 MG 250 MG t_with_ 250 MG a_meal} CoQ10 200 CoQ10 200 No 1{capsu QD CoQ10 200 MG MG le_with MG _a_meal } Lipitor 40 Lipitor 40 No Lipitor 40 MG MG MG metFORMIN metFORMIN No metFORMIN HCl 1000 MG HCl 1000 MG HCl 1000 MG Vitamin B12 Vitamin B12 No 1{table QD Vitamin 1000 MCG 1000 MCG t} B12 1000 MCG D3 Adult D3 Adult No 1{table QD D3 Adult 1000 UNIT 1000 UNIT t} 1000 UNIT Bentyl 10 Bentyl 10 No 1{capsu QID Bentyl 10 MG MG les} MG Cephalexin Cephalexin No 1{capsu BID Cephalexin 500 MG 500 MG le} 500 MG Gabapentin Gabapentin No 1{table BID Gabapentin 600 MG 600 MG t} 600 MG Aspirin 81 Aspirin 81 No 1{table QD Aspirin 81 81 MG 81 MG t} 81 MG Gabapentin Gabapentin No 1{table BID Gabapentin 600 MG 600 MG t} 600 MG Basaglar Basaglar No QD Basaglar KwikPen 100 KwikPen 100 KwikPen UNIT/ML UNIT/ML 100 UNIT/ML metFORMIN metFORMIN No 1{table BID metFORMIN HCl 1000 MG HCl 1000 MG t_with_ HCl 1000 meals} MG metFORMIN metFORMIN No metFORMIN HCl 1000 MG HCl 1000 MG HCl 1000 MG metFORMIN metFORMIN No 1{table BID metFORMIN HCl 1000 MG HCl 1000 MG t_with_ HCl 1000 meals} MG amLODIPine amLODIPine No 1{table QD amLODIPine Besylate 10 Besylate 10 t} Besylate MG MG 10 MG Lasix 40 MG Lasix 40 MG No 1{table QD Lasix 40 t} MG Gabapentin Gabapentin No 1{table BID Gabapentin 600 MG 600 MG t} 600 MG FreeStyle FreeStyle No FreeStyle Sol 14 Sol 14 Sol 14 Day Sensor Day Sensor Day Sensor - - - Lipitor 40 Lipitor 40 No Lipitor 40 MG MG MG Claritin 10 Claritin 10 No 1{table QD Claritin MG MG t} 10 MG Vitamin Vitamin No 1{table QD Vitamin B-12 1000 B-12 1000 t} B-12 1000 MCG MCG MCG amLODIPine amLODIPine No 1{table QD amLODIPine Besylate 10 Besylate 10 t} Besylate MG MG 10 MG Gabapentin Gabapentin No 1{table BID Gabapentin 600 MG 600 MG t} 600 MG Flonase 50 Flonase 50 No 2{spray QD Flonase 50 MCG/ACT MCG/ACT _in_eac MCG/ACT h_nostr il} Bentyl 10 Bentyl 10 No 1{capsu QID Bentyl 10 MG MG les} MG Entresto Entresto No BID Entresto 97/103mg 97/103mg 97/103mg 97/103mg 97/103mg 97/103mg Lipitor 40 Lipitor 40 No 1{table QD Lipitor 40 MG MG t} MG Restasis Restasis No 1{drop_ BID Restasis 0.05 % 0.05 % into_af 0.05 % fected_ eye} Cephalexin Cephalexin No 1{capsu BID Cephalexin 500 MG 500 MG le} 500 MG Metoprolol Metoprolol No .5{tabl BID Metoprolol Tartrate 25 Tartrate 25 et_with Tartrate MG MG _food} 25 MG Vitamin B12 Vitamin B12 No 1{table QD Vitamin 1000 MCG 1000 MCG t} B12 1000 MCG Doxycycline Doxycycline No 1{table BID Doxycyclin Hyclate 20 Hyclate 20 t} e Hyclate MG MG 20 MG Aspirin 81 Aspirin 81 No 1{table QD Aspirin 81 81 MG 81 MG t} 81 MG Basaglar Basaglar No QD Basaglar KwikPen 100 KwikPen 100 KwikPen UNIT/ML UNIT/ML 100 UNIT/ML Stool Stool No 1{capsu QD Stool Softener Softener le_as_n Softener 100 MG 100 MG eeded} 100 MG Basaglar Basaglar No QD Basaglar KwikPen 100 KwikPen 100 KwikPen UNIT/ML UNIT/ML 100 UNIT/ML Centrum Centrum No Centrum Silver - Silver - Silver - CoQ10 200 CoQ10 200 No 1{capsu QD CoQ10 200 MG MG le_with MG _a_meal } D3 Adult D3 Adult No 1{table QD D3 Adult 1000 UNIT 1000 UNIT t} 1000 UNIT Aspir-Low Aspir-Low No 1{table QD Aspir-Low 81 MG 81 MG t} 81 MG Magnesium Magnesium No 1{table QD Magnesium 250 MG 250 MG t_with_ 250 MG a_meal} FreeStyle FreeStyle No QD FreeStyle Sol 14 Sol 14 Sol 14 Day Freedom Day Freedom Day Freedom - - - metFORMIN metFORMIN No metFORMIN HCl 1000 MG HCl 1000 MG HCl 1000 MG metFORMIN metFORMIN No 1{table BID metFORMIN HCl 1000 MG HCl 1000 MG t_with_ HCl 1000 meals} MG amLODIPine amLODIPine No 1{table QD amLODIPine Besylate 10 Besylate 10 t} Besylate MG MG 10 MG Lasix 40 MG Lasix 40 MG No 1{table QD Lasix 40 t} MG Gabapentin Gabapentin No 1{table BID Gabapentin 600 MG 600 MG t} 600 MG FreeStyle FreeStyle No FreeStyle Sol 14 Sol 14 Sol 14 Day Sensor Day Sensor Day Sensor - - - Lipitor 40 Lipitor 40 No Lipitor 40 MG MG MG Claritin 10 Claritin 10 No 1{table QD Claritin MG MG t} 10 MG Vitamin Vitamin No 1{table QD Vitamin B-12 1000 B-12 1000 t} B-12 1000 MCG MCG MCG amLODIPine amLODIPine No 1{table QD amLODIPine Besylate 10 Besylate 10 t} Besylate MG MG 10 MG Gabapentin Gabapentin No 1{table BID Gabapentin 600 MG 600 MG t} 600 MG Flonase 50 Flonase 50 No 2{spray QD Flonase 50 MCG/ACT MCG/ACT _in_eac MCG/ACT h_nostr il} Bentyl 10 Bentyl 10 No 1{capsu QID Bentyl 10 MG MG les} MG Entresto Entresto No BID Entresto 97/103mg 97/103mg 97/103mg 97/103mg 97/103mg 97/103mg Lipitor 40 Lipitor 40 No 1{table QD Lipitor 40 MG MG t} MG Restasis Restasis No 1{drop_ BID Restasis 0.05 % 0.05 % into_af 0.05 % fected_ eye} Cephalexin Cephalexin No 1{capsu BID Cephalexin 500 MG 500 MG le} 500 MG Metoprolol Metoprolol No .5{tabl BID Metoprolol Tartrate 25 Tartrate 25 et_with Tartrate MG MG _food} 25 MG Vitamin B12 Vitamin B12 No 1{table QD Vitamin 1000 MCG 1000 MCG t} B12 1000 MCG Doxycycline Doxycycline No 1{table BID Doxycyclin Hyclate 20 Hyclate 20 t} e Hyclate MG MG 20 MG Aspirin 81 Aspirin 81 No 1{table QD Aspirin 81 81 MG 81 MG t} 81 MG Basaglar Basaglar No QD Basaglar KwikPen 100 KwikPen 100 KwikPen UNIT/ML UNIT/ML 100 UNIT/ML Stool Stool No 1{capsu QD Stool Softener Softener le_as_n Softener 100 MG 100 MG eeded} 100 MG Basaglar Basaglar No QD Basaglar KwikPen 100 KwikPen 100 KwikPen UNIT/ML UNIT/ML 100 UNIT/ML Centrum Centrum No Centrum Silver - Silver - Silver - CoQ10 200 CoQ10 200 No 1{capsu QD CoQ10 200 MG MG le_with MG _a_meal } D3 Adult D3 Adult No 1{table QD D3 Adult 1000 UNIT 1000 UNIT t} 1000 UNIT Aspir-Low Aspir-Low No 1{table QD Aspir-Low 81 MG 81 MG t} 81 MG Magnesium Magnesium No 1{table QD Magnesium 250 MG 250 MG t_with_ 250 MG a_meal} FreeStyle FreeStyle No QD FreeStyle Sol 14 Sol 14 Sol 14 Day Freedom Day Freedom Day Freedom - - - metFORMIN metFORMIN No metFORMIN HCl 1000 MG HCl 1000 MG HCl 1000 MG metFORMIN metFORMIN No 1{table BID metFORMIN HCl 1000 MG HCl 1000 MG t_with_ HCl 1000 meals} MG amLODIPine amLODIPine No 1{table QD amLODIPine Besylate 10 Besylate 10 t} Besylate MG MG 10 MG Lasix 40 MG Lasix 40 MG No 1{table QD Lasix 40 t} MG Gabapentin Gabapentin No 1{table BID Gabapentin 600 MG 600 MG t} 600 MG FreeStyle FreeStyle No FreeStyle Sol 14 Slo 14 Sol 14 Day Sensor Day Sensor Day Sensor - - - Lipitor 40 Lipitor 40 No Lipitor 40 MG MG MG Claritin 10 Claritin 10 No 1{table QD Claritin MG MG t} 10 MG Vitamin Vitamin No 1{table QD Vitamin B-12 1000 B-12 1000 t} B-12 1000 MCG MCG MCG amLODIPine amLODIPine No 1{table QD amLODIPine Besylate 10 Besylate 10 t} Besylate MG MG 10 MG Gabapentin Gabapentin No 1{table BID Gabapentin 600 MG 600 MG t} 600 MG Flonase 50 Flonase 50 No 2{spray QD Flonase 50 MCG/ACT MCG/ACT _in_eac MCG/ACT h_nostr il} Bentyl 10 Bentyl 10 No 1{capsu QID Bentyl 10 MG MG les} MG Entresto Entresto No BID Entresto 97/103mg 97/103mg 97/103mg 97/103mg 97/103mg 97/103mg Lipitor 40 Lipitor 40 No 1{table QD Lipitor 40 MG MG t} MG Restasis Restasis No 1{drop_ BID Restasis 0.05 % 0.05 % into_af 0.05 % fected_ eye} Cephalexin Cephalexin No 1{capsu BID Cephalexin 500 MG 500 MG le} 500 MG Metoprolol Metoprolol No .5{tabl BID Metoprolol Tartrate 25 Tartrate 25 et_with Tartrate MG MG _food} 25 MG Vitamin B12 Vitamin B12 No 1{table QD Vitamin 1000 MCG 1000 MCG t} B12 1000 MCG Doxycycline Doxycycline No 1{table BID Doxycyclin Hyclate 20 Hyclate 20 t} e Hyclate MG MG 20 MG Aspirin 81 Aspirin 81 No 1{table QD Aspirin 81 81 MG 81 MG t} 81 MG Basaglar Basaglar No QD Basaglar KwikPen 100 KwikPen 100 KwikPen UNIT/ML UNIT/ML 100 UNIT/ML Stool Stool No 1{capsu QD Stool Softener Softener le_as_n Softener 100 MG 100 MG eeded} 100 MG Basaglar Basaglar No QD Basaglar KwikPen 100 KwikPen 100 KwikPen UNIT/ML UNIT/ML 100 UNIT/ML Centrum Centrum No Centrum Silver - Silver - Silver - CoQ10 200 CoQ10 200 No 1{capsu QD CoQ10 200 MG MG le_with MG _a_meal } D3 Adult D3 Adult No 1{table QD D3 Adult 1000 UNIT 1000 UNIT t} 1000 UNIT Aspir-Low Aspir-Low No 1{table QD Aspir-Low 81 MG 81 MG t} 81 MG Magnesium Magnesium No 1{table QD Magnesium 250 MG 250 MG t_with_ 250 MG a_meal} FreeStyle FreeStyle No QD FreeStyle Sol 14 Sol 14 Sol 14 Day Freedom Day Freedom Day Freedom - - - Vitamin Vitamin No 1{table QD Vitamin B-12 1000 B-12 1000 t} B-12 1000 MCG MCG MCG Meloxicam Meloxicam No Meloxicam 7.5 MG 7.5 MG 7.5 MG FreeStyle FreeStyle No QD FreeStyle Sol 14 Sol 14 Sol 14 Day Freedom Day Freedom Day Freedom - - - Aspirin 81 Aspirin 81 No 1{table QD Aspirin 81 81 MG 81 MG t} 81 MG Atorvastati Atorvastati No Atorvastat n Calcium n Calcium in Calcium 40 MG 40 MG 40 MG Lasix 40 MG Lasix 40 MG No 1{table QD Lasix 40 t} MG Basaglar Basaglar No QD Basaglar KwikPen 100 KwikPen 100 KwikPen UNIT/ML UNIT/ML 100 UNIT/ML Lipitor 40 Lipitor 40 No 1{table QD Lipitor 40 MG MG t} MG Spironolact Spironolact No 1{table Spironolac one 25 MG one 25 MG t} tone 25 MG metFORMIN metFORMIN No metFORMIN HCl 1000 MG HCl 1000 MG HCl 1000 MG Lipitor 40 Lipitor 40 No Lipitor 40 MG MG MG FreeStyle FreeStyle No FreeStyle Sol 14 Sol 14 Sol 14 Day Sensor Day Sensor Day Sensor - - - Entresto Entresto No BID Entresto 97/103mg 97/103mg 97/103mg 97/103mg 97/103mg 97/103mg Basaglar Basaglar No QD Basaglar KwikPen 100 KwikPen 100 KwikPen UNIT/ML UNIT/ML 100 UNIT/ML Furosemide Furosemide No 1{table QD Furosemide 40 MG 40 MG t} 40 MG Metoprolol Metoprolol No .5{tabl BID Metoprolol Tartrate 25 Tartrate 25 et_with Tartrate MG MG _food} 25 MG Vitamin B12 Vitamin B12 No 1{table QD Vitamin 1000 MCG 1000 MCG t} B12 1000 MCG Stool Stool No 1{capsu QD Stool Softener Softener le_as_n Softener 100 MG 100 MG eeded} 100 MG D3 Adult D3 Adult No 1{table QD D3 Adult 1000 UNIT 1000 UNIT t} 1000 UNIT Claritin 10 Claritin 10 No 1{table QD Claritin MG MG t} 10 MG metFORMIN metFORMIN No 1{table BID metFORMIN HCl 1000 MG HCl 1000 MG t_with_ HCl 1000 meals} MG amLODIPine amLODIPine No 1{table QD amLODIPine Besylate 10 Besylate 10 t} Besylate MG MG 10 MG Gabapentin Gabapentin No 1{table BID Gabapentin 600 MG 600 MG t} 600 MG amLODIPine amLODIPine No amLODIPine Besylate 10 Besylate 10 Besylate MG MG 10 MG Flonase 50 Flonase 50 No 2{spray QD Flonase 50 MCG/ACT MCG/ACT _in_eac MCG/ACT h_nostr il} Bentyl 10 Bentyl 10 No 1{capsu QID Bentyl 10 MG MG les} MG Aspir-Low Aspir-Low No 1{table QD Aspir-Low 81 MG 81 MG t} 81 MG Gabapentin Gabapentin No Gabapentin 600 MG 600 MG 600 MG Restasis Restasis No 1{drop_ BID Restasis 0.05 % 0.05 % into_af 0.05 % fected_ eye} Magnesium Magnesium No 1{table QD Magnesium 250 MG 250 MG t_with_ 250 MG a_meal} Cephalexin Cephalexin No 1{capsu BID Cephalexin 500 MG 500 MG le} 500 MG Centrum Centrum No Centrum Silver - Silver - Silver - Doxycycline Doxycycline No 1{table BID Doxycyclin Hyclate 20 Hyclate 20 t} e Hyclate MG MG 20 MG CoQ10 200 CoQ10 200 No 1{capsu QD CoQ10 200 MG MG le_with MG _a_meal } Vitamin Vitamin No 1{table QD Vitamin B-12 1000 B-12 1000 t} B-12 1000 MCG MCG MCG Meloxicam Meloxicam No Meloxicam 7.5 MG 7.5 MG 7.5 MG FreeStyle FreeStyle No QD FreeStyle Sol 14 Sol 14 Sol 14 Day Freedom Day Freedom Day Freedom - - - Aspirin 81 Aspirin 81 No 1{table QD Aspirin 81 81 MG 81 MG t} 81 MG Atorvastati Atorvastati No Atorvastat n Calcium n Calcium in Calcium 40 MG 40 MG 40 MG Lasix 40 MG Lasix 40 MG No 1{table QD Lasix 40 t} MG Basaglar Basaglar No QD Basaglar KwikPen 100 KwikPen 100 KwikPen UNIT/ML UNIT/ML 100 UNIT/ML Lipitor 40 Lipitor 40 No 1{table QD Lipitor 40 MG MG t} MG Spironolact Spironolact No 1{table Spironolac one 25 MG one 25 MG t} tone 25 MG metFORMIN metFORMIN No metFORMIN HCl 1000 MG HCl 1000 MG HCl 1000 MG Lipitor 40 Lipitor 40 No Lipitor 40 MG MG MG FreeStyle FreeStyle No FreeStyle Sol 14 Sol 14 Sol 14 Day Sensor Day Sensor Day Sensor - - - Entresto Entresto No BID Entresto 97/103mg 97/103mg 97/103mg 97/103mg 97/103mg 97/103mg Basaglar Basaglar No QD Basaglar KwikPen 100 KwikPen 100 KwikPen UNIT/ML UNIT/ML 100 UNIT/ML Furosemide Furosemide No 1{table QD Furosemide 40 MG 40 MG t} 40 MG Metoprolol Metoprolol No .5{tabl BID Metoprolol Tartrate 25 Tartrate 25 et_with Tartrate MG MG _food} 25 MG Vitamin B12 Vitamin B12 No 1{table QD Vitamin 1000 MCG 1000 MCG t} B12 1000 MCG Stool Stool No 1{capsu QD Stool Softener Softener le_as_n Softener 100 MG 100 MG eeded} 100 MG D3 Adult D3 Adult No 1{table QD D3 Adult 1000 UNIT 1000 UNIT t} 1000 UNIT Claritin 10 Claritin 10 No 1{table QD Claritin MG MG t} 10 MG metFORMIN metFORMIN No 1{table BID metFORMIN HCl 1000 MG HCl 1000 MG t_with_ HCl 1000 meals} MG amLODIPine amLODIPine No 1{table QD amLODIPine Besylate 10 Besylate 10 t} Besylate MG MG 10 MG Gabapentin Gabapentin No 1{table BID Gabapentin 600 MG 600 MG t} 600 MG amLODIPine amLODIPine No amLODIPine Besylate 10 Besylate 10 Besylate MG MG 10 MG Flonase 50 Flonase 50 No 2{spray QD Flonase 50 MCG/ACT MCG/ACT _in_eac MCG/ACT h_nostr il} Bentyl 10 Bentyl 10 No 1{capsu QID Bentyl 10 MG MG les} MG Aspir-Low Aspir-Low No 1{table QD Aspir-Low 81 MG 81 MG t} 81 MG Gabapentin Gabapentin No Gabapentin 600 MG 600 MG 600 MG Restasis Restasis No 1{drop_ BID Restasis 0.05 % 0.05 % into_af 0.05 % fected_ eye} Magnesium Magnesium No 1{table QD Magnesium 250 MG 250 MG t_with_ 250 MG a_meal} Cephalexin Cephalexin No 1{capsu BID Cephalexin 500 MG 500 MG le} 500 MG Centrum Centrum No Centrum Silver - Silver - Silver - Doxycycline Doxycycline No 1{table BID Doxycyclin Hyclate 20 Hyclate 20 t} e Hyclate MG MG 20 MG CoQ10 200 CoQ10 200 No 1{capsu QD CoQ10 200 MG MG le_with MG _a_meal } Gabapentin Gabapentin No 1{table BID Gabapentin 600 MG 600 MG t} 600 MG FreeStyle FreeStyle No QD FreeStyle Sol 14 Sol 14 Sol 14 Day Freedom Day Freedom Day Freedom - - - Meloxicam Meloxicam No Meloxicam 7.5 MG 7.5 MG 7.5 MG Stool Stool No 1{capsu QD Stool Softener Softener le_as_n Softener 100 MG 100 MG eeded} 100 MG metFORMIN metFORMIN No metFORMIN HCl 1000 MG HCl 1000 MG HCl 1000 MG Bentyl 10 Bentyl 10 No 1{capsu QID Bentyl 10 MG MG les} MG Cephalexin Cephalexin No 1{capsu BID Cephalexin 500 MG 500 MG le} 500 MG Furosemide Furosemide No 1{table QD Furosemide 40 MG 40 MG t} 40 MG Claritin 10 Claritin 10 No 1{table QD Claritin MG MG t} 10 MG amLODIPine amLODIPine No amLODIPine Besylate 10 Besylate 10 Besylate MG MG 10 MG Lipitor 40 Lipitor 40 No Lipitor 40 MG MG MG Doxycycline Doxycycline No 1{table BID Doxycyclin Hyclate 20 Hyclate 20 t} e Hyclate MG MG 20 MG Spironolact Spironolact No 1{table Spironolac one 25 MG one 25 MG t} tone 25 MG Entresto Entresto No BID Entresto 97/103mg 97/103mg 97/103mg 97/103mg 97/103mg 97/103mg Atorvastati Atorvastati No Atorvastat n Calcium n Calcium in Calcium 40 MG 40 MG 40 MG Basaglar Basaglar No QD Basaglar KwikPen 100 KwikPen 100 KwikPen UNIT/ML UNIT/ML 100 UNIT/ML Gabapentin Gabapentin No Gabapentin 600 MG 600 MG 600 MG Vitamin Vitamin No 1{table QD Vitamin B-12 1000 B-12 1000 t} B-12 1000 MCG MCG MCG Aspirin 81 Aspirin 81 No 1{table QD Aspirin 81 81 MG 81 MG t} 81 MG metFORMIN metFORMIN No 1{table BID metFORMIN HCl 1000 MG HCl 1000 MG t_with_ HCl 1000 meals} MG Centrum Centrum No Centrum Silver - Silver - Silver - Metoprolol Metoprolol No .5{tabl BID Metoprolol Tartrate 25 Tartrate 25 et_with Tartrate MG MG _food} 25 MG Basaglar Basaglar No QD Basaglar KwikPen 100 KwikPen 100 KwikPen UNIT/ML UNIT/ML 100 UNIT/ML Magnesium Magnesium No 1{table QD Magnesium 250 MG 250 MG t_with_ 250 MG a_meal} Lasix 40 MG Lasix 40 MG No 1{table QD Lasix 40 t} MG FreeStyle FreeStyle No FreeStyle Sol 14 Sol 14 Sol 14 Day Sensor Day Sensor Day Sensor - - - Lipitor 40 Lipitor 40 No 1{table QD Lipitor 40 MG MG t} MG Flonase 50 Flonase 50 No 2{spray QD Flonase 50 MCG/ACT MCG/ACT _in_eac MCG/ACT h_nostr il} Vitamin B12 Vitamin B12 No 1{table QD Vitamin 1000 MCG 1000 MCG t} B12 1000 MCG Restasis Restasis No 1{drop_ BID Restasis 0.05 % 0.05 % into_af 0.05 % fected_ eye} D3 Adult D3 Adult No 1{table QD D3 Adult 1000 UNIT 1000 UNIT t} 1000 UNIT amLODIPine amLODIPine No 1{table QD amLODIPine Besylate 10 Besylate 10 t} Besylate MG MG 10 MG Aspir-Low Aspir-Low No 1{table QD Aspir-Low 81 MG 81 MG t} 81 MG CoQ10 200 CoQ10 200 No 1{capsu QD CoQ10 200 MG MG le_with MG _a_meal } amLODIPine amLODIPine No amLODIPine Besylate 10 Besylate 10 Besylate MG MG 10 MG Centrum Centrum No Centrum Silver - Silver - Silver - Claritin 10 Claritin 10 No 1{table QD Claritin MG MG t} 10 MG Magnesium Magnesium No 1{table QD Magnesium 250 MG 250 MG t_with_ 250 MG a_meal} amLODIPine amLODIPine No 1{table QD amLODIPine Besylate 10 Besylate 10 t} Besylate MG MG 10 MG Stool Stool No 1{capsu QD Stool Softener Softener le_as_n Softener 100 MG 100 MG eeded} 100 MG Lasix 40 MG Lasix 40 MG No 1{table QD Lasix 40 t} MG Atorvastati Atorvastati No Atorvastat n Calcium n Calcium in Calcium 40 MG 40 MG 40 MG Vitamin B12 Vitamin B12 No 1{table QD Vitamin 1000 MCG 1000 MCG t} B12 1000 MCG metFORMIN metFORMIN No 1{table BID metFORMIN HCl 1000 MG HCl 1000 MG t_with_ HCl 1000 meals} MG Bentyl 10 Bentyl 10 No 1{capsu QID Bentyl 10 MG MG les} MG Aspirin 81 Aspirin 81 No 1{table QD Aspirin 81 81 MG 81 MG t} 81 MG Restasis Restasis No 1{drop_ BID Restasis 0.05 % 0.05 % into_af 0.05 % fected_ eye} Gabapentin Gabapentin No 1{table BID Gabapentin 600 MG 600 MG t} 600 MG Basaglar Basaglar No QD Basaglar KwikPen 100 KwikPen 100 KwikPen UNIT/ML UNIT/ML 100 UNIT/ML Entresto Entresto No BID Entresto 97/103mg 97/103mg 97/103mg 97/103mg 97/103mg 97/103mg Meloxicam Meloxicam No Meloxicam 7.5 MG 7.5 MG 7.5 MG CoQ10 200 CoQ10 200 No 1{capsu QD CoQ10 200 MG MG le_with MG _a_meal } metFORMIN metFORMIN No metFORMIN HCl 1000 MG HCl 1000 MG HCl 1000 MG Spironolact Spironolact No 1{table Spironolac one 25 MG one 25 MG t} tone 25 MG D3 Adult D3 Adult No 1{table QD D3 Adult 1000 UNIT 1000 UNIT t} 1000 UNIT Basaglar Basaglar No QD Basaglar KwikPen 100 KwikPen 100 KwikPen UNIT/ML UNIT/ML 100 UNIT/ML Aspir-Low Aspir-Low No 1{table QD Aspir-Low 81 MG 81 MG t} 81 MG Flonase 50 Flonase 50 No 2{spray QD Flonase 50 MCG/ACT MCG/ACT _in_eac MCG/ACT h_nostr il} Vitamin Vitamin No 1{table QD Vitamin B-12 1000 B-12 1000 t} B-12 1000 MCG MCG MCG Lipitor 40 Lipitor 40 No 1{table QD Lipitor 40 MG MG t} MG Lipitor 40 Lipitor 40 No Lipitor 40 MG MG MG Metoprolol Metoprolol No .5{tabl BID Metoprolol Tartrate 25 Tartrate 25 et_with Tartrate MG MG _food} 25 MG Gabapentin Gabapentin No Gabapentin 600 MG 600 MG 600 MG Doxycycline Doxycycline No 1{table BID Doxycyclin Hyclate 20 Hyclate 20 t} e Hyclate MG MG 20 MG Furosemide Furosemide No 1{table QD Furosemide 40 MG 40 MG t} 40 MG Cephalexin Cephalexin No 1{capsu BID Cephalexin 500 MG 500 MG le} 500 MG FreeStyle FreeStyle No QD FreeStyle Sol 14 Sol 14 Sol 14 Day Freedom Day Freedom Day Freedom - - - FreeStyle FreeStyle No FreeStyle Sol 14 Sol 14 Sol 14 Day Sensor Day Sensor Day Sensor - - - amLODIPine amLODIPine No amLODIPine Besylate 10 Besylate 10 Besylate MG MG 10 MG Centrum Centrum No Centrum Silver - Silver - Silver - Claritin 10 Claritin 10 No 1{table QD Claritin MG MG t} 10 MG Magnesium Magnesium No 1{table QD Magnesium 250 MG 250 MG t_with_ 250 MG a_meal} amLODIPine amLODIPine No 1{table QD amLODIPine Besylate 10 Besylate 10 t} Besylate MG MG 10 MG Stool Stool No 1{capsu QD Stool Softener Softener le_as_n Softener 100 MG 100 MG eeded} 100 MG Lasix 40 MG Lasix 40 MG No 1{table QD Lasix 40 t} MG Atorvastati Atorvastati No Atorvastat n Calcium n Calcium in Calcium 40 MG 40 MG 40 MG Vitamin B12 Vitamin B12 No 1{table QD Vitamin 1000 MCG 1000 MCG t} B12 1000 MCG metFORMIN metFORMIN No 1{table BID metFORMIN HCl 1000 MG HCl 1000 MG t_with_ HCl 1000 meals} MG Bentyl 10 Bentyl 10 No 1{capsu QID Bentyl 10 MG MG les} MG Aspirin 81 Aspirin 81 No 1{table QD Aspirin 81 81 MG 81 MG t} 81 MG Restasis Restasis No 1{drop_ BID Restasis 0.05 % 0.05 % into_af 0.05 % fected_ eye} Gabapentin Gabapentin No 1{table BID Gabapentin 600 MG 600 MG t} 600 MG Basaglar Basaglar No QD Basaglar KwikPen 100 KwikPen 100 KwikPen UNIT/ML UNIT/ML 100 UNIT/ML Entresto Entresto No BID Entresto 97/103mg 97/103mg 97/103mg 97/103mg 97/103mg 97/103mg Meloxicam Meloxicam No Meloxicam 7.5 MG 7.5 MG 7.5 MG CoQ10 200 CoQ10 200 No 1{capsu QD CoQ10 200 MG MG le_with MG _a_meal } metFORMIN metFORMIN No metFORMIN HCl 1000 MG HCl 1000 MG HCl 1000 MG Spironolact Spironolact No 1{table Spironolac one 25 MG one 25 MG t} tone 25 MG D3 Adult D3 Adult No 1{table QD D3 Adult 1000 UNIT 1000 UNIT t} 1000 UNIT Basaglar Basaglar No QD Basaglar KwikPen 100 KwikPen 100 KwikPen UNIT/ML UNIT/ML 100 UNIT/ML Aspir-Low Aspir-Low No 1{table QD Aspir-Low 81 MG 81 MG t} 81 MG Flonase 50 Flonase 50 No 2{spray QD Flonase 50 MCG/ACT MCG/ACT _in_eac MCG/ACT h_nostr il} Vitamin Vitamin No 1{table QD Vitamin B-12 1000 B-12 1000 t} B-12 1000 MCG MCG MCG Lipitor 40 Lipitor 40 No 1{table QD Lipitor 40 MG MG t} MG Lipitor 40 Lipitor 40 No Lipitor 40 MG MG MG Metoprolol Metoprolol No .5{tabl BID Metoprolol Tartrate 25 Tartrate 25 et_with Tartrate MG MG _food} 25 MG Gabapentin Gabapentin No Gabapentin 600 MG 600 MG 600 MG Doxycycline Doxycycline No 1{table BID Doxycyclin Hyclate 20 Hyclate 20 t} e Hyclate MG MG 20 MG Furosemide Furosemide No 1{table QD Furosemide 40 MG 40 MG t} 40 MG Cephalexin Cephalexin No 1{capsu BID Cephalexin 500 MG 500 MG le} 500 MG FreeStyle FreeStyle No QD FreeStyle Sol 14 Sol 14 Sol 14 Day Freedom Day Freedom Day Freedom - - - FreeStyle FreeStyle No FreeStyle Sol 14 Sol 14 Sol 14 Day Sensor Day Sensor Day Sensor - - - amLODIPine amLODIPine No amLODIPine Besylate 10 Besylate 10 Besylate MG MG 10 MG Centrum Centrum No Centrum Silver - Silver - Silver - Claritin 10 Claritin 10 No 1{table QD Claritin MG MG t} 10 MG Magnesium Magnesium No 1{table QD Magnesium 250 MG 250 MG t_with_ 250 MG a_meal} amLODIPine amLODIPine No 1{table QD amLODIPine Besylate 10 Besylate 10 t} Besylate MG MG 10 MG Stool Stool No 1{capsu QD Stool Softener Softener le_as_n Softener 100 MG 100 MG eeded} 100 MG Lasix 40 MG Lasix 40 MG No 1{table QD Lasix 40 t} MG Atorvastati Atorvastati No Atorvastat n Calcium n Calcium in Calcium 40 MG 40 MG 40 MG Vitamin B12 Vitamin B12 No 1{table QD Vitamin 1000 MCG 1000 MCG t} B12 1000 MCG metFORMIN metFORMIN No 1{table BID metFORMIN HCl 1000 MG HCl 1000 MG t_with_ HCl 1000 meals} MG Bentyl 10 Bentyl 10 No 1{capsu QID Bentyl 10 MG MG les} MG Aspirin 81 Aspirin 81 No 1{table QD Aspirin 81 81 MG 81 MG t} 81 MG Restasis Restasis No 1{drop_ BID Restasis 0.05 % 0.05 % into_af 0.05 % fected_ eye} Gabapentin Gabapentin No 1{table BID Gabapentin 600 MG 600 MG t} 600 MG Basaglar Basaglar No QD Basaglar KwikPen 100 KwikPen 100 KwikPen UNIT/ML UNIT/ML 100 UNIT/ML Entresto Entresto No BID Entresto 97/103mg 97/103mg 97/103mg 97/103mg 97/103mg 97/103mg Meloxicam Meloxicam No Meloxicam 7.5 MG 7.5 MG 7.5 MG CoQ10 200 CoQ10 200 No 1{capsu QD CoQ10 200 MG MG le_with MG _a_meal } metFORMIN metFORMIN No metFORMIN HCl 1000 MG HCl 1000 MG HCl 1000 MG Spironolact Spironolact No 1{table Spironolac one 25 MG one 25 MG t} tone 25 MG D3 Adult D3 Adult No 1{table QD D3 Adult 1000 UNIT 1000 UNIT t} 1000 UNIT Basaglar Basaglar No QD Basaglar KwikPen 100 KwikPen 100 KwikPen UNIT/ML UNIT/ML 100 UNIT/ML Aspir-Low Aspir-Low No 1{table QD Aspir-Low 81 MG 81 MG t} 81 MG Flonase 50 Flonase 50 No 2{spray QD Flonase 50 MCG/ACT MCG/ACT _in_eac MCG/ACT h_nostr il} Vitamin Vitamin No 1{table QD Vitamin B-12 1000 B-12 1000 t} B-12 1000 MCG MCG MCG Lipitor 40 Lipitor 40 No 1{table QD Lipitor 40 MG MG t} MG Lipitor 40 Lipitor 40 No Lipitor 40 MG MG MG Metoprolol Metoprolol No .5{tabl BID Metoprolol Tartrate 25 Tartrate 25 et_with Tartrate MG MG _food} 25 MG Gabapentin Gabapentin No Gabapentin 600 MG 600 MG 600 MG Doxycycline Doxycycline No 1{table BID Doxycyclin Hyclate 20 Hyclate 20 t} e Hyclate MG MG 20 MG Furosemide Furosemide No 1{table QD Furosemide 40 MG 40 MG t} 40 MG Cephalexin Cephalexin No 1{capsu BID Cephalexin 500 MG 500 MG le} 500 MG FreeStyle FreeStyle No QD FreeStyle Sol 14 Sol 14 Sol 14 Day Freedom Day Freedom Day Freedom - - - FreeStyle FreeStyle No FreeStyle Sol 14 Sol 14 Sol 14 Day Sensor Day Sensor Day Sensor - - - Aspir-Low Aspir-Low No 1{table QD Aspir-Low 81 MG 81 MG t} 81 MG amLODIPine amLODIPine No 1{table QD amLODIPine Besylate 10 Besylate 10 t} Besylate MG MG 10 MG metFORMIN metFORMIN No metFORMIN HCl 1000 MG HCl 1000 MG HCl 1000 MG Gabapentin Gabapentin No 1{table BID Gabapentin 600 MG 600 MG t} 600 MG Gabapentin Gabapentin No Gabapentin 600 MG 600 MG 600 MG Lipitor 40 Lipitor 40 No Lipitor 40 MG MG MG Restasis Restasis No 1{drop_ BID Restasis 0.05 % 0.05 % into_af 0.05 % fected_ eye} metFORMIN metFORMIN No 1{table BID metFORMIN HCl 1000 MG HCl 1000 MG t_with_ HCl 1000 meals} MG Basaglar Basaglar No QD Basaglar KwikPen 100 KwikPen 100 KwikPen UNIT/ML UNIT/ML 100 UNIT/ML Bentyl 10 Bentyl 10 No 1{capsu QID Bentyl 10 MG MG les} MG FreeStyle FreeStyle No QD FreeStyle Sol 14 Sol 14 Sol 14 Day Freedom Day Freedom Day Freedom - - - Spironolact Spironolact No 1{table Spironolac one 25 MG one 25 MG t} tone 25 MG Stool Stool No 1{capsu QD Stool Softener Softener le_as_n Softener 100 MG 100 MG eeded} 100 MG amLODIPine amLODIPine No amLODIPine Besylate 10 Besylate 10 Besylate MG MG 10 MG Cephalexin Cephalexin No 1{capsu BID Cephalexin 500 MG 500 MG le} 500 MG Metoprolol Metoprolol No .5{tabl BID Metoprolol Tartrate 25 Tartrate 25 et_with Tartrate MG MG _food} 25 MG FreeStyle FreeStyle No FreeStyle Sol 14 Sol 14 Sol 14 Day Sensor Day Sensor Day Sensor - - - Lasix 40 MG Lasix 40 MG No 1{table QD Lasix 40 t} MG Claritin 10 Claritin 10 No 1{table QD Claritin MG MG t} 10 MG Lipitor 40 Lipitor 40 No 1{table QD Lipitor 40 MG MG t} MG Aspirin 81 Aspirin 81 No 1{table QD Aspirin 81 81 MG 81 MG t} 81 MG Meloxicam Meloxicam No Meloxicam 7.5 MG 7.5 MG 7.5 MG Entresto Entresto No BID Entresto 97/103mg 97/103mg 97/103mg 97/103mg 97/103mg 97/103mg Doxycycline Doxycycline No 1{table BID Doxycyclin Hyclate 20 Hyclate 20 t} e Hyclate MG MG 20 MG CoQ10 200 CoQ10 200 No 1{capsu QD CoQ10 200 MG MG le_with MG _a_meal } Basaglar Basaglar No QD Basaglar KwikPen 100 KwikPen 100 KwikPen UNIT/ML UNIT/ML 100 UNIT/ML Vitamin Vitamin No 1{table QD Vitamin B-12 1000 B-12 1000 t} B-12 1000 MCG MCG MCG Flonase 50 Flonase 50 No 2{spray QD Flonase 50 MCG/ACT MCG/ACT _in_eac MCG/ACT h_nostr il} Furosemide Furosemide No 1{table QD Furosemide 40 MG 40 MG t} 40 MG Atorvastati Atorvastati No Atorvastat n Calcium n Calcium in Calcium 40 MG 40 MG 40 MG Magnesium Magnesium No 1{table QD Magnesium 250 MG 250 MG t_with_ 250 MG a_meal} D3 Adult D3 Adult No 1{table QD D3 Adult 1000 UNIT 1000 UNIT t} 1000 UNIT Centrum Centrum No Centrum Silver - Silver - Silver - Vitamin B12 Vitamin B12 No 1{table QD Vitamin 1000 MCG 1000 MCG t} B12 1000 MCG Lasix 40 MG Lasix 40 MG No 1{table QD Lasix 40 t} MG Aspir-Low Aspir-Low No 1{table QD Aspir-Low 81 MG 81 MG t} 81 MG metFORMIN metFORMIN No metFORMIN HCl 1000 MG HCl 1000 MG HCl 1000 MG Lipitor 40 Lipitor 40 No 1{table QD Lipitor 40 MG MG t} MG Aspirin 81 Aspirin 81 No 1{table QD Aspirin 81 81 MG 81 MG t} 81 MG FreeStyle FreeStyle No QD FreeStyle Sol 14 Sol 14 Sol 14 Day Freedom Day Freedom Day Freedom - - - Furosemide Furosemide No 1{table QD Furosemide 40 MG 40 MG t} 40 MG D3 Adult D3 Adult No 1{table QD D3 Adult 1000 UNIT 1000 UNIT t} 1000 UNIT amLODIPine amLODIPine No 1{table QD amLODIPine Besylate 10 Besylate 10 t} Besylate MG MG 10 MG Meloxicam Meloxicam No Meloxicam 7.5 MG 7.5 MG 7.5 MG Gabapentin Gabapentin No 1{table BID Gabapentin 600 MG 600 MG t} 600 MG Cephalexin Cephalexin No 1{capsu BID Cephalexin 500 MG 500 MG le} 500 MG FreeStyle FreeStyle No FreeStyle Sol 14 Sol 14 Sol 14 Day Sensor Day Sensor Day Sensor - - - Bentyl 10 Bentyl 10 No 1{capsu QID Bentyl 10 MG MG les} MG Claritin 10 Claritin 10 No 1{table QD Claritin MG MG t} 10 MG Doxycycline Doxycycline No 1{table BID Doxycyclin Hyclate 20 Hyclate 20 t} e Hyclate MG MG 20 MG Flonase 50 Flonase 50 No 2{spray QD Flonase 50 MCG/ACT MCG/ACT _in_eac MCG/ACT h_nostr il} metFORMIN metFORMIN No 1{table BID metFORMIN HCl 1000 MG HCl 1000 MG t_with_ HCl 1000 meals} MG Basaglar Basaglar No QD Basaglar KwikPen 100 KwikPen 100 KwikPen UNIT/ML UNIT/ML 100 UNIT/ML Metoprolol Metoprolol No .5{tabl BID Metoprolol Tartrate 25 Tartrate 25 et_with Tartrate MG MG _food} 25 MG Lipitor 40 Lipitor 40 No Lipitor 40 MG MG MG CoQ10 200 CoQ10 200 No 1{capsu QD CoQ10 200 MG MG le_with MG _a_meal } Centrum Centrum No Centrum Silver - Silver - Silver - Vitamin B12 Vitamin B12 No 1{table QD Vitamin 1000 MCG 1000 MCG t} B12 1000 MCG Magnesium Magnesium No 1{table QD Magnesium 250 MG 250 MG t_with_ 250 MG a_meal} Vitamin Vitamin No 1{table QD Vitamin B-12 1000 B-12 1000 t} B-12 1000 MCG MCG MCG Stool Stool No 1{capsu QD Stool Softener Softener le_as_n Softener 100 MG 100 MG eeded} 100 MG Entresto Entresto No BID Entresto 97/103mg 97/103mg 97/103mg 97/103mg 97/103mg 97/103mg Atorvastati Atorvastati No Atorvastat n Calcium n Calcium in Calcium 40 MG 40 MG 40 MG Spironolact Spironolact No 1{table Spironolac one 25 MG one 25 MG t} tone 25 MG Gabapentin Gabapentin No Gabapentin 600 MG 600 MG 600 MG amLODIPine amLODIPine No amLODIPine Besylate 10 Besylate 10 Besylate MG MG 10 MG Restasis Restasis No 1{drop_ BID Restasis 0.05 % 0.05 % into_af 0.05 % fected_ eye} Basaglar Basaglar No QD Basaglar KwikPen 100 KwikPen 100 KwikPen UNIT/ML UNIT/ML 100 UNIT/ML Meloxicam Meloxicam No Meloxicam 7.5 MG 7.5 MG 7.5 MG Aspir-Low Aspir-Low No 1{table QD Aspir-Low 81 MG 81 MG t} 81 MG metFORMIN metFORMIN No metFORMIN HCl 1000 MG HCl 1000 MG HCl 1000 MG Lasix 40 MG Lasix 40 MG No 1{table QD Lasix 40 t} MG Aspirin 81 Aspirin 81 No 1{table QD Aspirin 81 81 MG 81 MG t} 81 MG FreeStyle FreeStyle No QD FreeStyle Sol 14 Sol 14 Sol 14 Day Freedom Day Freedom Day Freedom - - - Furosemide Furosemide No 1{table QD Furosemide 40 MG 40 MG t} 40 MG D3 Adult D3 Adult No 1{table QD D3 Adult 1000 UNIT 1000 UNIT t} 1000 UNIT Doxycycline Doxycycline No 1{table BID Doxycyclin Hyclate 20 Hyclate 20 t} e Hyclate MG MG 20 MG amLODIPine amLODIPine No amLODIPine Besylate 10 Besylate 10 Besylate MG MG 10 MG Gabapentin Gabapentin No 1{table BID Gabapentin 600 MG 600 MG t} 600 MG Cephalexin Cephalexin No 1{capsu BID Cephalexin 500 MG 500 MG le} 500 MG FreeStyle FreeStyle No FreeStyle Sol 14 Sol 14 Sol 14 Day Sensor Day Sensor Day Sensor - - - Dicyclomine Dicyclomine No Dicyclomin HCl 10 MG HCl 10 MG e HCl 10 MG Claritin 10 Claritin 10 No 1{table QD Claritin MG MG t} 10 MG metFORMIN metFORMIN No 1{table BID metFORMIN HCl 1000 MG HCl 1000 MG t_with_ HCl 1000 meals} MG Flonase 50 Flonase 50 No 2{spray QD Flonase 50 MCG/ACT MCG/ACT _in_eac MCG/ACT h_nostr il} Vitamin B12 Vitamin B12 No 1{table QD Vitamin 1000 MCG 1000 MCG t} B12 1000 MCG Basaglar Basaglar No QD Basaglar KwikPen 100 KwikPen 100 KwikPen UNIT/ML UNIT/ML 100 UNIT/ML Stool Stool No 1{capsu QD Stool Softener Softener le_as_n Softener 100 MG 100 MG eeded} 100 MG Entresto Entresto No BID Entresto 97/103mg 97/103mg 97/103mg 97/103mg 97/103mg 97/103mg CoQ10 200 CoQ10 200 No 1{capsu QD CoQ10 200 MG MG le_with MG _a_meal } Atorvastati Atorvastati No Atorvastat n Calcium n Calcium in Calcium 40 MG 40 MG 40 MG Magnesium Magnesium No 1{table QD Magnesium 250 MG 250 MG t_with_ 250 MG a_meal} Vitamin Vitamin No 1{table QD Vitamin B-12 1000 B-12 1000 t} B-12 1000 MCG MCG MCG Centrum Centrum No Centrum Silver - Silver - Silver - Lipitor 40 Lipitor 40 No 1{table QD Lipitor 40 MG MG t} MG Metoprolol Metoprolol No .5{tabl BID Metoprolol Tartrate 25 Tartrate 25 et_with Tartrate MG MG _food} 25 MG Lipitor 40 Lipitor 40 No Lipitor 40 MG MG MG Gabapentin Gabapentin No Gabapentin 600 MG 600 MG 600 MG Spironolact Spironolact No 1{table Spironolac one 25 MG one 25 MG t} tone 25 MG Restasis Restasis No 1{drop_ BID Restasis 0.05 % 0.05 % into_af 0.05 % fected_ eye} Basaglar Basaglar No QD Basaglar KwikPen 100 KwikPen 100 KwikPen UNIT/ML UNIT/ML 100 UNIT/ML Gabapentin Gabapentin No 1{table BID Gabapentin 600 MG 600 MG t} 600 MG Vitamin B12 Vitamin B12 No 1{table QD Vitamin 1000 MCG 1000 MCG t} B12 1000 MCG Spironolact Spironolact No 1{table Spironolac one 25 MG one 25 MG t} tone 25 MG Centrum Centrum No Centrum Silver - Silver - Silver - BD Pen BD Pen No BD Pen Needle Mini Needle Mini Needle U/F 31G X 5 U/F 31G X 5 Mini U/F MM MM 31G X 5 MM Claritin 10 Claritin 10 No 1{table QD Claritin MG MG t} 10 MG amLODIPine amLODIPine No amLODIPine Besylate 10 Besylate 10 Besylate MG MG 10 MG Stool Stool No 1{capsu QD Stool Softener Softener le_as_n Softener 100 MG 100 MG eeded} 100 MG Metoprolol Metoprolol No .5{tabl BID Metoprolol Tartrate 25 Tartrate 25 et_with Tartrate MG MG _food} 25 MG Magnesium Magnesium No 1{table QD Magnesium 250 MG 250 MG t_with_ 250 MG a_meal} Restasis Restasis No 1{drop_ BID Restasis 0.05 % 0.05 % into_af 0.05 % fected_ eye} Furosemide Furosemide No 1{table QD Furosemide 40 MG 40 MG t} 40 MG FreeStyle FreeStyle No FreeStyle Sol 14 Sol 14 Sol 14 Day Sensor Day Sensor Day Sensor - - - Lipitor 40 Lipitor 40 No 1{table QD Lipitor 40 MG MG t} MG Vitamin Vitamin No 1{table QD Vitamin B-12 1000 B-12 1000 t} B-12 1000 MCG MCG MCG Lipitor 40 Lipitor 40 No Lipitor 40 MG MG MG Flonase 50 Flonase 50 No 2{spray QD Flonase 50 MCG/ACT MCG/ACT _in_eac MCG/ACT h_nostr il} Atorvastati Atorvastati No Atorvastat n Calcium n Calcium in Calcium 40 MG 40 MG 40 MG D3 Adult D3 Adult No 1{table QD D3 Adult 1000 UNIT 1000 UNIT t} 1000 UNIT Aspirin 81 Aspirin 81 No 1{table QD Aspirin 81 81 MG 81 MG t} 81 MG metFORMIN metFORMIN No 1{table BID metFORMIN HCl 1000 MG HCl 1000 MG t_with_ HCl 1000 meals} MG Aspir-Low Aspir-Low No 1{table QD Aspir-Low 81 MG 81 MG t} 81 MG Dicyclomine Dicyclomine No Dicyclomin HCl 10 MG HCl 10 MG e HCl 10 MG amLODIPine amLODIPine No 1{table QD amLODIPine Besylate 10 Besylate 10 t} Besylate MG MG 10 MG Basaglar Basaglar No QD Basaglar KwikPen 100 KwikPen 100 KwikPen UNIT/ML UNIT/ML 100 UNIT/ML Entresto Entresto No BID Entresto 97/103mg 97/103mg 97/103mg 97/103mg 97/103mg 97/103mg Meloxicam Meloxicam No Meloxicam 7.5 MG 7.5 MG 7.5 MG Lasix 40 MG Lasix 40 MG No 1{table QD Lasix 40 t} MG CoQ10 200 CoQ10 200 No 1{capsu QD CoQ10 200 MG MG le_with MG _a_meal } Bentyl 10 Bentyl 10 No 1{capsu QID Bentyl 10 MG MG les} MG Doxycycline Doxycycline No 1{table BID Doxycyclin Hyclate 20 Hyclate 20 t} e Hyclate MG MG 20 MG Cephalexin Cephalexin No 1{capsu BID Cephalexin 500 MG 500 MG le} 500 MG FreeStyle FreeStyle No QD FreeStyle Sol 14 Sol 14 Sol 14 Day Freedom Day Freedom Day Freedom - - - metFORMIN metFORMIN No metFORMIN HCl 1000 MG HCl 1000 MG HCl 1000 MG Basaglar Basaglar No QD Basaglar KwikPen 100 KwikPen 100 KwikPen UNIT/ML UNIT/ML 100 UNIT/ML Gabapentin Gabapentin No Gabapentin 600 MG 600 MG 600 MG CoQ10 200 CoQ10 200 No 1{capsu QD CoQ10 200 MG MG le_with MG _a_meal } Gabapentin Gabapentin No 1{table BID Gabapentin 600 MG 600 MG t} 600 MG Furosemide Furosemide No 1{table QD Furosemide 40 MG 40 MG t} 40 MG metFORMIN metFORMIN No 1{table BID metFORMIN HCl 1000 MG HCl 1000 MG t_with_ HCl 1000 meals} MG D3 Adult D3 Adult No 1{table QD D3 Adult 1000 UNIT 1000 UNIT t} 1000 UNIT Stool Stool No 1{capsu QD Stool Softener Softener le_as_n Softener 100 MG 100 MG eeded} 100 MG Aspirin 81 Aspirin 81 No 1{table QD Aspirin 81 81 MG 81 MG t} 81 MG Bentyl 10 Bentyl 10 No 1{capsu QID Bentyl 10 MG MG les} MG BD Pen BD Pen No BD Pen Needle Mini Needle Mini Needle U/F 31G X 5 U/F 31G X 5 Mini U/F MM MM 31G X 5 MM Basaglar Basaglar No QD Basaglar KwikPen 100 KwikPen 100 KwikPen UNIT/ML UNIT/ML 100 UNIT/ML Magnesium Magnesium No 1{table QD Magnesium 250 MG 250 MG t_with_ 250 MG a_meal} Restasis Restasis No 1{drop_ BID Restasis 0.05 % 0.05 % into_af 0.05 % fected_ eye} Meloxicam Meloxicam No Meloxicam 7.5 MG 7.5 MG 7.5 MG Lasix 40 MG Lasix 40 MG No 1{table QD Lasix 40 t} MG Centrum Centrum No Centrum Silver - Silver - Silver - Flonase 50 Flonase 50 No 2{spray QD Flonase 50 MCG/ACT MCG/ACT _in_eac MCG/ACT h_nostr il} Claritin 10 Claritin 10 No 1{table QD Claritin MG MG t} 10 MG Vitamin Vitamin No 1{table QD Vitamin B-12 1000 B-12 1000 t} B-12 1000 MCG MCG MCG Metoprolol Metoprolol No .5{tabl BID Metoprolol Tartrate 25 Tartrate 25 et_with Tartrate MG MG _food} 25 MG amLODIPine amLODIPine No amLODIPine Besylate 10 Besylate 10 Besylate MG MG 10 MG metFORMIN metFORMIN No metFORMIN HCl 1000 MG HCl 1000 MG HCl 1000 MG Dicyclomine Dicyclomine No Dicyclomin HCl 10 MG HCl 10 MG e HCl 10 MG FreeStyle FreeStyle No FreeStyle Sol 14 Sol 14 Sol 14 Day Sensor Day Sensor Day Sensor - - - Vitamin B12 Vitamin B12 No 1{table QD Vitamin 1000 MCG 1000 MCG t} B12 1000 MCG amLODIPine amLODIPine No 1{table QD amLODIPine Besylate 10 Besylate 10 t} Besylate MG MG 10 MG Aspir-Low Aspir-Low No 1{table QD Aspir-Low 81 MG 81 MG t} 81 MG Entresto Entresto No BID Entresto 97/103mg 97/103mg 97/103mg 97/103mg 97/103mg 97/103mg Lipitor 40 Lipitor 40 No 1{table QD Lipitor 40 MG MG t} MG Atorvastati Atorvastati No 1{table QD Atorvastat n Calcium n Calcium t} in Calcium 40 MG 40 MG 40 MG Cephalexin Cephalexin No 1{capsu BID Cephalexin 500 MG 500 MG le} 500 MG Doxycycline Doxycycline No 1{table BID Doxycyclin Hyclate 20 Hyclate 20 t} e Hyclate MG MG 20 MG Spironolact Spironolact No 1{table Spironolac one 25 MG one 25 MG t} tone 25 MG FreeStyle FreeStyle No QD FreeStyle Sol 14 Sol 14 Sol 14 Day Freedom Day Freedom Day Freedom - - - Lipitor 40 Lipitor 40 No Lipitor 40 MG MG MG Gabapentin Gabapentin No Gabapentin 600 MG 600 MG 600 MG Basaglar Basaglar No QD Basaglar KwikPen 100 KwikPen 100 KwikPen UNIT/ML UNIT/ML 100 UNIT/ML Entresto Entresto No BID Entresto 97/103mg 97/103mg 97/103mg 97/103mg 97/103mg 97/103mg Furosemide Furosemide No 1{table QD Furosemide 40 MG 40 MG t} 40 MG Bentyl 10 Bentyl 10 No 1{capsu QID Bentyl 10 MG MG les} MG FreeStyle FreeStyle No QD FreeStyle Sol 14 Sol 14 Sol 14 Day Freedom Day Freedom Day Freedom - - - FreeStyle FreeStyle No FreeStyle Sol 14 Sol 14 Sol 14 Day Sensor Day Sensor Day Sensor - - - Entresto Entresto No BID Entresto 97/103mg 97/103mg 97/103mg 97/103mg 97/103mg 97/103mg Cephalexin Cephalexin No 1{capsu BID Cephalexin 500 MG 500 MG le} 500 MG Restasis Restasis No 1{drop_ BID Restasis 0.05 % 0.05 % into_af 0.05 % fected_ eye} Aspirin 81 Aspirin 81 No 1{table QD Aspirin 81 81 MG 81 MG t} 81 MG Spironolact Spironolact No 1{table Spironolac one 25 MG one 25 MG t} tone 25 MG Metoprolol Metoprolol No .5{tabl BID Metoprolol Tartrate 25 Tartrate 25 et_with Tartrate MG MG _food} 25 MG Gabapentin Gabapentin No 1{table BID Gabapentin 600 MG 600 MG t} 600 MG CoQ10 200 CoQ10 200 No 1{capsu QD CoQ10 200 MG MG le_with MG _a_meal } Atorvastati Atorvastati No 1{table QD Atorvastat n Calcium n Calcium t} in Calcium 40 MG 40 MG 40 MG Basaglar Basaglar No QD Basaglar KwikPen 100 KwikPen 100 KwikPen UNIT/ML UNIT/ML 100 UNIT/ML Doxycycline Doxycycline No 1{table BID Doxycyclin Hyclate 20 Hyclate 20 t} e Hyclate MG MG 20 MG Basaglar Basaglar No QD Basaglar KwikPen 100 KwikPen 100 KwikPen UNIT/ML UNIT/ML 100 UNIT/ML D3 Adult D3 Adult No 1{table QD D3 Adult 1000 UNIT 1000 UNIT t} 1000 UNIT Meloxicam Meloxicam No 1{table QD Meloxicam 7.5 MG 7.5 MG t} 7.5 MG BD Pen BD Pen No BD Pen Needle Mini Needle Mini Needle U/F 31G X 5 U/F 31G X 5 Mini U/F MM MM 31G X 5 MM Basaglar Basaglar No QD Basaglar KwikPen 100 KwikPen 100 KwikPen UNIT/ML UNIT/ML 100 UNIT/ML Metoprolol Metoprolol No .5{tabl BID Metoprolol Tartrate 25 Tartrate 25 et_with Tartrate MG MG _food} 25 MG Meloxicam Meloxicam No Meloxicam 7.5 MG 7.5 MG 7.5 MG Lipitor 40 Lipitor 40 No 1{table QD Lipitor 40 MG MG t} MG amLODIPine amLODIPine No 1{table QD amLODIPine Besylate 10 Besylate 10 t} Besylate MG MG 10 MG Aspir-Low Aspir-Low No 1{table QD Aspir-Low 81 MG 81 MG t} 81 MG Flonase 50 Flonase 50 No 2{spray QD Flonase 50 MCG/ACT MCG/ACT _in_eac MCG/ACT h_nostr il} Gabapentin Gabapentin No Gabapentin 600 MG 600 MG 600 MG Magnesium Magnesium No 1{table QD Magnesium 250 MG 250 MG t_with_ 250 MG a_meal} Vitamin B12 Vitamin B12 No 1{table QD Vitamin 1000 MCG 1000 MCG t} B12 1000 MCG amLODIPine amLODIPine No 1{table QD amLODIPine Besylate 10 Besylate 10 t} Besylate MG MG 10 MG Centrum Centrum No Centrum Silver - Silver - Silver - Stool Stool No 1{capsu QD Stool Softener Softener le_as_n Softener 100 MG 100 MG eeded} 100 MG amLODIPine amLODIPine No amLODIPine Besylate 10 Besylate 10 Besylate MG MG 10 MG Centrum Centrum No Centrum Silver - Silver - Silver - Stool Stool No 1{capsu QD Stool Softener Softener le_as_n Softener 100 MG 100 MG eeded} 100 MG Lipitor 40 Lipitor 40 No 1{table QD Lipitor 40 MG MG t} MG Vitamin Vitamin No 1{table QD Vitamin B-12 1000 B-12 1000 t} B-12 1000 MCG MCG MCG Flonase 50 Flonase 50 No 2{spray QD Flonase 50 MCG/ACT MCG/ACT _in_eac MCG/ACT h_nostr il} Restasis Restasis No 1{drop_ BID Restasis 0.05 % 0.05 % into_af 0.05 % fected_ eye} Claritin 10 Claritin 10 No 1{table QD Claritin MG MG t} 10 MG FreeStyle FreeStyle No FreeStyle Sol 14 Sol 14 Sol 14 Day Sensor Day Sensor Day Sensor - - - amLODIPine amLODIPine No 1{table QD amLODIPine Besylate 10 Besylate 10 t} Besylate MG MG 10 MG Lasix 40 MG Lasix 40 MG No 1{table QD Lasix 40 t} MG Doxycycline Doxycycline No 1{table BID Doxycyclin Hyclate 20 Hyclate 20 t} e Hyclate MG MG 20 MG Meloxicam Meloxicam No Meloxicam 7.5MG 7.5MG 7.5MG Aspir-Low Aspir-Low No 1{table QD Aspir-Low 81 MG 81 MG t} 81 MG Meloxicam Meloxicam 2021- No Meloxicam 7.5 MG 7.5 MG 05-02 7.5 MG 00:00 :00 Meloxicam Meloxicam 2021- No Meloxicam 7.5 MG 7.5 MG 05-02 7.5 MG 00:00 :00 Meloxicam Meloxicam 2021- No Meloxicam 7.5 MG 7.5 MG 05-02 7.5 MG 00:00 :00 Immunizations Ordered Filled Immunization Date Status Comments [facility] Immunization Name Name Prevnar 20 (PCV20) Prevnar 20 (PCV20) 2023-04-27 [facility] FLUZONE HIGH DOSE FLUZONE HIGH DOSE 2022-09-07 [facility]pleted [facility] OVER 65 OVER 65 09:08:00 - [facility] FLUZONE HIGH DOSE FLUZONE HIGH DOSE 2022-09-07 [facility] OVER 65 OVER 65 09:08:00 - [facility] FLUZONE HIGH DOSE FLUZONE HIGH DOSE 2022-09-07 [facility] OVER 65 OVER 65 09:08:00 - [facility] FLUZONE HIGH DOSE FLUZONE HIGH DOSE 2022-09-07 [facility] OVER 65 OVER 65 09:08:00 - [facility] COVID-19 Vaccine COVID-19 Vaccine 2021-02-01 [facility] ([facility] (writewith) 09:07:00 - [facility] COVID-19 Vaccine COVID-19 Vaccine 2021-02-01 Com[facility] ([facility] (writewith) 09:07:00 - [facility] COVID-19 Vaccine COVID-19 Vaccine 2021-02-01 Completed [facility] (Deandre) 09:07:00 - [facility] COVID-19 Vaccine COVID-19 Vaccine 2021-02-01 Com[facility] (Deandre) 09:07:00 - [facility] COVID-19 Vaccine COVID-19 Vaccine 2021-02-01 Completed [facility] (Deandre) 09:07:00 - [facility] COVID-19 Vaccine COVID-19 Vaccine 2021-02-01 Com[facility] (Deandre) 09:07:00 - [facility] COVID-19 Vaccine COVID-19 Vaccine 2021-02-01 [facility] (Deandre) 09:07:00 [facility] COVID-19 Vaccine COVID-19 Vaccine 2021-02-01 Com[facility] (Deandre) 09:07:00 - [facility] COVID-19 Vaccine COVID-19 Vaccine 2021-02-01 Com[facility] (Deandre) 09:07:00 - [facility] COVID-19 Vaccine COVID-19 Vaccine 2021-02-01 [facility] (Deandre) 09:07:00 [facility] COVID-19 Vaccine COVID-19 Vaccine 2021-02-01 Com[facility] (Deandre) 09:07:00 [facility] COVID-19 Vaccine COVID-19 Vaccine 2021-02-01 Com[facility] (Deandre) 09:07:00 [facility] COVID-19 Vaccine COVID-19 Vaccine 2021-02-01 Completed [facility] (Deandre) 09:07:00 [facility] COVID-19 Vaccine COVID-19 Vaccine 2021-02-01 [facility]pleted [facility] (Deandre) 09:07:00 [facility] COVID-19 Vaccine COVID-19 Vaccine 2021-02-01 Completed [facility] (Deandre) 09:07:00 [facility] FluAD FluAD 2020-09-07 [facility] 10:49:00 - [facility] FluAD FluAD 2020-09-07 [facility] 10:49:00 - [facility] FluAD FluAD 2020-09-07 [facility] 10:49:00 - [facility] FluAD FluAD 2020-09-07 [facility] 10:49:00 - [facility] FluAD FluAD 2020-09-07 [facility] 10:49:00 - [facility] FluAD FluAD 2020-09-07 [facility] 10:49:00 - [facility] FluAD FluAD 2020-09-07 [facility] 10:49:00 - [facility] FluAD FluAD 2020-09-07 [facility] 10:49:00 - [facility] FluAD FluAD 2020-09-07 [facility] 10:49:00 - [facility] FluAD FluAD 2020-09-07 [facility] 10:49:00 - [facility] FluAD FluAD 2020-09-07 [facility] 10:49:00 - [facility] FluAD FluAD 2020-09-07 [facility] 10:49:00 - [facility] FluAD FluAD 2020-09-07 [facility] 10:49:00 - [facility] FluAD FluAD 2020-09-07 [facility] 10:49:00 - [facility] FluAD FluAD 2020-09-07 Com[facility] 10:49:00 - [facility] FluAD FluAD 2019-08-26 [facility]pleted [facility] 09:48:00 - [facility] FluAD FluAD 2019-08-26 [facility]pleted [facility] 09:48:00 - [facility] FluAD FluAD 2019-08-26 [facility] 09:48:00 - [facility] FluAD FluAD 2019-08-26 [facility] 09:48:00 - [facility] FluAD FluAD 2019-08-26 [facility] 09:48:00 - [facility] FluAD FluAD 2019-08-26 Com[facility] 09:48:00 - [facility] FluAD FluAD 2019-08-26 [facility] 09:48:00 - [facility] FluAD FluAD 2019-08-26 [facility] 09:48:00 - [facility] FluAD FluAD 2019-08-26 [facility] 09:48:00 - [facility] FluAD FluAD 2019-08-26 [facility] 09:48:00 - [facility] FluAD FluAD 2019-08-26 [facility] 09:48:00 - [facility] FluAD FluAD 2019-08-26 [facility] 09:48:00 - [facility] FluAD FluAD 2019-08-26 [facility] 09:48:00 - [facility] FluAD FluAD 2019-08-26 [facility] 09:48:00 - [facility] FluAD FluAD 2019-08-26 [facility] 09:48:00 - [facility] FluAD FluAD 2019-08-26 [facility] 00:00:00 [facility] Prevnar 13 Prevnar 13 2018-09-21 Com[facility] -Pneumonia Vaccine -Pneumonia Vaccine 13:48:00 - [facility] Prevnar 13 Prevnar 13 2018-09-21 [facility] -Pneumonia Vaccine -Pneumonia Vaccine 13:48:00 - [facility] Prevnar 13 Prevnar 13 2018-09-21 Completed [facility] -Pneumonia Vaccine -Pneumonia Vaccine 13:48:00 - [facility] Prevnar 13 Prevnar 13 2018-09-21 [facility] -Pneumonia Vaccine -Pneumonia Vaccine 13:48:00 - [facility] Prevnar 13 Prevnar 13 2018-09-21 [facility] -Pneumonia Vaccine -Pneumonia Vaccine 13:48:00 [facility] Prevnar 13 Prevnar 13 2018-09-21 [facility] -Pneumonia Vaccine -Pneumonia Vaccine 13:48:00 - [facility] Prevnar 13 Prevnar 13 2018-09-21 [facility] -Pneumonia Vaccine -Pneumonia Vaccine 13:48:00 [facility] Prevnar 13 Prevnar 13 2018-09-21 [facility] -Pneumonia Vaccine -Pneumonia Vaccine 13:48:00 - [facility] Prevnar 13 Prevnar 13 2018-09-21 Com[facility] -Pneumonia Vaccine -Pneumonia Vaccine 13:48:00 - [facility] Prevnar 13 Prevnar 13 2018-09-21 [facility] -Pneumonia Vaccine -Pneumonia Vaccine 13:48:00 - [facility] Prevnar 13 Prevnar 13 2018-09-21 [facility] -Pneumonia Vaccine -Pneumonia Vaccine 13:48:00 - [facility] Prevnar 13 Prevnar 13 2018-09-21 [facility] -Pneumonia Vaccine -Pneumonia Vaccine 13:48:00 - [facility] Prevnar 13 Prevnar 13 2018-09-21 [facility] -Pneumonia Vaccine -Pneumonia Vaccine 13:48:00 - [facility] Prevnar 13 Prevnar 13 2018-09-21 [facility] -Pneumonia Vaccine -Pneumonia Vaccine 13:48:00 - [facility] Prevnar 13 Prevnar 13 2018-09-21 [facility] -Pneumonia Vaccine -Pneumonia Vaccine 13:48:00 - [facility] FluAD FluAD 2018-09-21 [facility] 13:46:00 - [facility] FluAD FluAD 2018-09-21 Com[facility] 13:46:00 - [facility] FluAD FluAD 2018-09-21 [facility] 13:46:00 - [facility] FluAD FluAD 2018-09-21 [facility] 13:46:00 - [facility] FluAD FluAD 2018-09-21 [facility] 13:46:00 - [facility] FluAD FluAD 2018-09-21 Com[facility] 13:46:00 - [facility] FluAD FluAD 2018-09-21 Com[facility] 13:46:00 - [facility] FluAD FluAD 2018-09-21 Com[facility] 13:46:00 - [facility] FluAD FluAD 2018-09-21 Com[facility] 13:46:00 - [facility] FluAD FluAD 2018-09-21 Com[facility] 13:46:00 - [facility] FluAD FluAD 2018-09-21 Com[facility] 13:46:00 - [facility] FluAD FluAD 2018-09-21 Com[facility] 13:46:00 - [facility] FluAD FluAD 2018-09-21 Completed [facility] 13:46:00 [facility] FluAD FluAD 2018-09-21 Com[facility] 13:46:00 [facility] FluAD FluAD 2018-09-21 Com[facility] 13:46:00 [facility] Prevnar 20 (PCV20) Prevnar 20 (PCV20) Unknown Completed [facility] FluAD Quad SD FluAD Quad SD Unknown Completed [facility] COVID-19 Vaccine COVID-19 Vaccine Unknown [facility]De[facility]re[facility] FluAD FluAD Unknown Completed [facility] FluAD FluAD Unknown Completed [facility] FluAD FluAD Unknown Completed [facility] Prevnar 13 Prevnar 13 Unknown Completed [facility] -Pneumonia Vaccine -Pneumonia Vaccine - [facility] FLUZONE HIGH DOSE FLUZONE HIGH DOSE Unknown Completed [facility] OVER 65 OVER 65 - [facility] Vital Signs Vital Name Observation Time Observation Value Comments Source height 2022-07-27 08:40:00 65 [in_i] [facility] weight 2022-07-27 08:40:00 149 [lb_av] [facility] bmi 2022-07-27 08:40:00 24.79 kg/m2 [facility] height 2022-03-10 08:00:00 65 [in_i] [facility] weight 2022-03-10 08:00:00 156.6 [lb_av] [facility] temperature 2022-03-10 08:00:00 97.9 [degF] [facility] bmi 2022-03-10 08:00:00 26.06 kg/m2 [facility] oximetry 2022-03-10 08:00:00 98 % [facility] respiratory rate 2022-03-10 08:00:00 16 /min Comm on [facility] blood pressure 2022-03-10 08:00:00 105 mm[Hg] [facility] - systolic [facility] blood pressure 2022-03-10 08:00:00 52 mm[Hg] [facility] - diastolic [facility] height 2022-02-02 10:40:00 65 [in_i] [facility] weight 2022-02-02 10:40:00 152 [lb_av] [facility] bmi 2022-02-02 10:40:00 25.29 kg/m2 [facility] height 2021-11-03 08:40:00 65 [in_i] [facility] weight 2021-11-03 08:40:00 164 [lb_av] [facility] 2021-11-03 08:40:00 27.29 kg/m2 [facility] height 2021-08-12 11:20:00 65 [in_i] [facility] weight 2021-08-12 11:20:00 164 [lb_av] [facility] bmi 2021-08-12 11:20:00 27.29 kg/m2 [facility] Procedures This patient has no known procedures. Encounters Start End Encounter Admission Attending Care Care Encounter Source Date/Time Date/Time Type Type Clinicians Facility Department ID 2023-09-07 Outpatient Baig, [facility] [id number] [facility] 10:40:00 Madhav [id number] [facility] 2023-04-26 Outpatient Baig, STLMLC [facility] [id number] [facility] 16:53:00 Madhav [id number] [facility] 2023-04-06 Outpatient Baig, STLMLC [facility] [id number] [facility] 11:09:00 Madhav [id number] [facility] 2023-04-05 Outpatient Baig, [facility]ML[facility] [id number] [facility] 14:36:00 [facility] [id number] [facility] 2023-02-07 Outpatient Baig, STLMLC [facility] [id number] [facility] 11:30:00 [facility] [id number] [facility] 2022-10-24 Outpatient Briones, Na STLMLC [facility] [id number] [facility] 10:57:01 [facility] 2022-04-26 Outpatient Briones, Na STLMLC ST[facility] [id number] [facility] 07:44:00 [facility] 2022-01-31 Outpatient Briones, Na STLMLC ST[facility] [id number] [facility] 09:16:00 [id number] [facility] 2021-12-15 Outpatient Briones, Na STLMLC [facility] [id number] [facility] 13:58:56 [id number] [facility] 2021-12-15 Outpatient Briones, Na STLMLC STL[facility]C [id number] [facility] 13:17:29 [id number] [facility] 2021-12-15 Outpatient Briones, Na STLMLC STL[facility]C [id number] [facility] 12:41:58 [id number] [facility] 2021-12-15 Outpatient Briones, Na STLMLC STL[facility]C [id number] [facility] 12:39:54 [id number] [facility] 2021-12-15 Outpatient Briones, Na STLMLC STL[facility]C [id number] [facility] 12:13:04 [id number] [facility] 2021-12-15 Outpatient Briones, Na STLMLC STLMLC [id number] Common 11:29:06 [id number] [facility] 2021-12-15 Outpatient Briones, Na STLMLC STL[facility]C [id number] [facility] 10:57:57 [id number] [facility] 2023-02-07 2023-02-07 (TEL) STLMLC [facility] [id number] [facility]:00:00 00:00:00 [facility] 2022-10-26 2022-10-26 OFFICE STLMLC STL[facility]C [id number] [facility] - CHI LEVEL 4 [facility] 2022-10-21 2022-10-21 (TEL) STLMLC STL[facility]C [id number] [facility] 00:00:00 00:00:00 [facility] 2022-09-07 2022-09-07 (INJ) STLMLC STLMLC [id number] [facility] 00:00:00 00:00:00 Injection [facility] 2022-08-01 2022-08-01 (TEL) STLMLC STLMLC [id number] [facility] 00:00:00 00:00:00 [facility] 2022-07-27 2022-07-27 OFFICE STLMLC STL[facility]C [id number] [facility] 00:00:00 00:00:00 [facility] ESTAB PT - CHI LEVEL 4 [facility] 2022-05-17 2022-05-17 (TEL) STLMLC STLMLC [id number] [facility] 00:00:00 00:00:00 [facility] 2022-05-12 2022-05-12 (TEL) STLMLC STLMLC [id number] [facility] 00:00:00 00:00:00 [facility] - [facility] 2022-04-27 2022-04-27 OFFICE STLMLC STLMLC [id number] [facility] 00:00:00 00:00:00 [facility] ESTAB PT - CHI LEVEL 4 [facility] 2022-03-10 2022-03-10 SUB ANNUAL STLMLC STLMLC [id number] [facility] 00:00:00 00:00:00 [facility] WELLNESS - CHI VISIT [facility] 2022-02-02 2022-02-02 (TEL) STLMLC STLMLC [id number] [facility] 00:00:00 00:00:00 [facility] 2022-02-02 2022-02-02 OFFICE STLMLC STLMLC [id number] [facility] 00:00:00 00:00:00 [facility] ESTAB PT - CHI LEVEL 4 [facility] 2021-11-03 2021-11-03 (TEL) STLMLC STLMLC [id number] [facility] 00:00:00 00:00:00 [facility] 2021-11-03 2021-11-03 OFFICE STLMLC STLMLC [id number] [facility] 00:00:00 00:00:00 VISIT [facility] PT 4 [facility] 2021-09-20 2021-09-20 (TEL) STLMLC STLMLC [id number] [facility] 00:00:00 00:00:00 [facility] 2021-08-12 2021-08-12 OFFICE STLMLC STLMLC [id number] [facility] 00:00:00 00:00:[address] 2021-05-19 2021-05-19 Outpatient STLMLC STL[facility]C [id number] [facility] 00:00:00 00:00:00 [facility] 2021-05-12 2021-05-12 Outpatient STLMLC STLMLC [id number] [facility] 00:00:00 00:00:00 [facility] 2021-03-03 2021-03-03 Outpatient STLMLC STLMLC [id number] [facility] 00:00:00 00:00:00 [facility] 2021-02-18 2021-02-18 Outpatient STLMLC STLMLC [id number] [facility] 00:00:00 00:00:00 [facility] 2021-02-08 2021-02-08 Outpatient STLMLC STLMLC [id number] [facility] 00:00:00 00:00:00 [facility] 2021-02-01 2021-02-01 Outpatient STLMLC STLMLC [id number] [facility] 00:00:00 00:00:00 [facility] 2021-01-08 2021-01-08 Outpatient STLMLC STLMLC [id number] [facility] 00:00:00 00:00:00 [facility] 2020-11-04 2020-11-04 Outpatient STLMLC STLMLC [id number] [facility] 00:00:00 00:00:00 [facility] 2020-09-07 2020-09-07 Outpatient STLMLC STLMLC [id number] [facility] 00:00:00 00:00:00 [facility] 2020-08-26 2020-08-26 Outpatient STLMLC STLMLC [id number] [facility] 00:00:00 00:00:00 [facility] 2020-05-21 2020-05-21 [id number] [facility] 08:40:00 08:40:[address] [facility] [facility] [address] [facility] 2020-02-07 2020-02-07 [facility] [id number] [facility] 09:20:00 09:20:[address] [facility] [facility] [address] [facility] 2020-02-07 2020-02-07 [facility] [id number] [facility] 09:09:00 09:09:[address] [facility] [facility] 2019-12-02 2019-12-02 [facility] [id number] [facility] 10:59:00 10:59:[address] [facility] [facility] 2019-11-19 2019-11-19 [facility] [id number] [facility] 08:07:00 08:07:[address] [facility] [facility] [address] [facility] 2019-11-18 2019-11-18 [facility] [id number] [facility] 16:24:00 16:24:[address] [facility] [facility] [address] [facility] 2019-11-06 2019-11-06 [facility] [id number] [facility] 14:58:00 14:58:[address] [facility] [facility] 2019-11-05 2019-11-05 [facility] [id number] [facility] 15:46:00 15:46:[address] [facility] [facility] 2019-11-05 2019-11-05 [facility] [id number] [facility] 15:10:00 15:10:[address] [facility] [facility] [address] [facility] 2019-11-05 2019-11-05 [facility] [id number] [facility] 08:00:00 08:00:[address] [facility] [facility] 2019-10-21 2019-10-21 [facility] [id number] [facility] 13:58:00 13:58:[address] [facility] [facility] [address] [facility] 2019-10-08 2019-10-08 [facility] [id number] [facility] 17:24:00 17:24:[address] [facility] [facility] 2019-10-07 2019-10-07 [facility] [id number] [facility] 09:40:00 09:40:[address] [facility] [facility] [address] [facility] 2019-08-26 2019-08-26 [facility] [id number] [facility] 08:00:00 08:00:[address] [facility] [facility] 2019-05-27 2019-05-27 [facility] [id number] [facility] 09:20:00 09:20:[address] [facility] [facility] [address] [facility] 2019-02-08 2019-02-08 [facility] [id number] [facility] 09:00:00 09:00:[address] [facility] [facility] 2019-02-01 2019-02-01 [facility] [id number] [facility] 10:37:00 10:37:00 [address] [facility] 2019-01-22 2019-01-22 [facility] [id number] Common 08:21:00 08:21:[address] [facility] 2018-12-07 2018-12-07 [facility] [id number] Common 15:33:00 15:33:[address] [facility] 2018-11-09 2018-11-09 [facility] [id number] Common 09:15:00 09:15:[address] [facility] 2018-08-10 2018-08-10 [facility] [id number] Common 10:15:00 10:15:[address] [facility] 2018-05-10 2018-05-10 [facility] [id number] Common 13:13:00 13:13:[address] [facility] 2018-05-09 2018-05-09 [facility] [id number] Common 08:15:00 08:15:[address] [facility] 2018-03-13 2018-03-13 [facility] [id number] Common 08:16:00 08:16:[address] [facility] 2018-03-05 2018-03-05 [facility] [id number] Common 10:14:00 10:14:[address] [facility] 2018-02-21 2018-02-21 [facility] [id number] Common 08:05:00 08:05:[address] [facility] 2018-02-06 2018-02-06 [facility] [id number] Common 10:30:00 10:30:[address] [facility] Results This patient has no known results.
[2023-09-21] MEDS ORDERED: NA CHLORIDE 0.9% 1,000 ML ONE (09:52)
[2023-09-21 09:57] LABS: Absolute Lymphocytes (CBC) 8.3 K/uL (0.7-4.9); Lymphocytes % 65.5 % (15.3-44.8); MCV 107.6 fL (80-100)
[2023-09-21] MEDS ORDERED: NA CHLORIDE 0.9% 100 ML ONE (09:58)
[2023-09-21] MEDS ORDERED: CEFEPIME 2 GM VIAL ONE (09:58)
[2023-09-21 10:01] LABS: Hematocrit 38.2 % (36.0-45.0); MPV 8.8 fL (7.6-11.3); Platelets 393 thou/uL (152-406); RBC Red Blood Cell Count 3.55 M/uL (3.86-4.86)
[2023-09-21 10:03] LABS: Protime INR 1.01
--- NOTE | 2023-09-21 10:24 | RAD REPORT ---
EXAM DESCRIPTION: CT - [id number] - 09/21/2023 10:15 am CLINICAL HISTORY: Trauma, head and neck injury. abd pain COMPARISON: <Comparisons> TECHNIQUE: Axial 5 mm thick images of the head were obtained. Axial 2 mm thick images of the cervical spine were obtained with sagittal and coronal reconstruction images generated and reviewed. All CT scans are performed using dose optimization technique as appropriate and may include automated exposure control or mA/KV adjustment according to patient size. FINDINGS: CT HEAD WITHOUT CONTRAST: No acute hemorrhage, hydrocephalus or extra-axial collection is identified.Moderate generalized brain atrophy is present with mild periventricular and deep white matter chronic microvascular ischemic ch anges.No areas of brain edema or midline shift. Moderate mucosal thickening of the left maxillary antrum. The paranasal sinuses and mastoids are othe rwise clear.The calvarium is intact. CT CERVICAL SPINE WITHOUT CONTRAST: No fracture or subluxation.Moderate mid and lower cervical degenerative changes are present.No prever tebral soft tissues swelling is identified. IMPRESSION: No acute intracranial or cervical spine findings.
[2023-09-21 10:28] LABS: Albumin 3.5 g/dL (3.4-5.0); BETA HYDROXYBUTYRATE 0.32 mmol/L (0.02-0.27); Bilirubin Total 0.3 mg/dL (0.2-1.0); Potassium 3.7 mEq/L (3.5-5.1); Protein, Total 7.2 g/dL (6.4-8.2)
--- NOTE | 2023-09-21 10:35 | RAD REPORT ---
EXAM DESCRIPTION: CT - Abdomen Pelvis Wo Contrast - 09/21/2023 10:17 am CLINICAL HISTORY: Abdominal pain. abd pain COMPARISON: <Comparisons> TECHNIQUE: CT imaging of the abdomen and pelvis was performed without contrast. Solid organ, bowel a nd vascular assessment is limited due to lack of IV and oral contrast. All CT scans are performed using dose optimization technique as appropriate and may include automated exposure control or mA/KV adjustment according to patient size. FINDINGS: Mildly emphysematous lung bases. The spleen and liver normal size with multiple granuloma present. Noncontrast assessment of the pancr eas is normal. Mild thickening is seen of both adrenal glands including is low-density 1 cm adrenal l esion likely an adenoma. No urinary tract stone or hydronephrosis. 19 mm cyst is present left kidney. Cholelithiasis. No bowel obstruction, free air, free fluid or abscess. Moderate lower lumbar degenerative changes are present.Bilateral hip replacements. No acute fracture. IMPRESSION: No acute intra-abdominal or pelvic findings. A limited non-contrast examination was performed as detailed.
[2023-09-21] MEDS ORDERED: NOREPINEPHRINE BITARTRATE/D5W 4 MG/250 ML BAG IV ONE ×2 (10:38→11:05)
[2023-09-21 10:42] LABS: C.diff Antigen/Toxin Ag neg : Tox neg (NEG : NEG)
[2023-09-21 10:53] LABS: Platelet Estimate ADEQ
[2023-09-21 10:54] LABS: Anisocytosis 1+; Blood Morphology Comment NOTED (NOT SEEN); Macrocytosis 1+
--- NOTE | 2023-09-21 11:01 | RAD REPORT ---
EXAM DESCRIPTION: RAD - Chest Single View - 09/21/2023 10:52 am CLINICAL HISTORY: sepsis Chest pain. COMPARISON: Chest Single View dated 10/31/2019; Chest Single View dated 10/30/2019; Chest Pa And Lat (2 Views) dated 10/08/2019; CHEST SINGLE VIEW dated 07/17/2013 FINDINGS: Portable technique limits examination quality. Moderate bilateral pulmonary opacities may represent pneumonia or pulmonary edema. The heart is mildl y enlarged. No displaced fractures.
[2023-09-21] MEDS ORDERED: FENTANYL CITR 100 MCG/2 ML ONE (11:14)
[2023-09-21] MEDS ORDERED: D10W 250 ML BAG IV PRN (11:19)
[2023-09-21] MEDS ORDERED: GLUCAGON 1 MG/VIAL IM PRN (11:19)
[2023-09-21] MEDS ORDERED: INSULIN -REGULAR HUMAN 100 UNIT in NA CHLORIDE 0.9% 100 ML IV SCH (11:30)
--- NOTE | 2023-09-21 11:31 | RAD REPORT ---
EXAM DESCRIPTION: RAD - Chest Single View - 09/21/2023 11:10 am CLINICAL HISTORY: CENTRAL LINE Chest pain. COMPARISON: <Comparisons> FINDINGS: Portable technique limits examination quality. Left-sided central line has been placed via the left jugular approach. Tip appears to be in the brach iocephalic vein. No pneumothorax.
--- NOTE | 2023-09-21 11:42 | EDPHYS ---
Physician Documentation [facility] Name: Lorelei Ordonez Age: 82 yrs Sex: Female : 1940 Arrival Date: 09/21/2023 Time: 09:16 Bed 2 Private MD: ED Physician Jose Quispe HPI: 09/21 11:29 This 82 yrs old Female presents to ER via Wheelchair with complaints of Syncope. rt 11:29 Patient presents to the ED with a syncopal event and abdominal pain. Patient was rt reportedly in her usual state of health, reportedly went to the bathroom to have a bowel movement, the granddaughter heard the patient fall, patient was mumbling incoherently and complaining of abdominal pain with profuse diarrhea. No hematemesis, hematochezia. No further history could be obtained due to altered mental status. Symptoms are severe in severity, no other aggravating or alleviating factors.. Historical: - Allergies: 09:19 No Known Allergies; ll1 - PMHx: 09:19 Hypercholesterolemia; Hypertensive disorder; ll1 - Immunization history:: Adult Immunizations up to date. - Social history:: Smoking status: Patient denies any tobacco usage or history of. Patient/guardian denies using alcohol. - Family history:: not pertinent. ROS: 11:29 Unable to obtain ROS due to altered mental status, rt Exam: 11:29 Head/Face: Normocephalic, atraumatic. Chest/axilla: Normal chest wall appearance and rt motion. Nontender with no deformity. No lesions are appreciated. Cardiovascular: Regular rate and rhythm with a normal S1 and S2. No gallops, murmurs, or rubs. Normal PMI, no JVD. No pulse deficits. Respiratory: Lungs have equal breath sounds bilaterally, clear to auscultation and percussion. No rales, rhonchi or wheezes noted. No increased work of breathing, no retractions or nasal flaring. 11:29 Constitutional: The patient appears Pale, confused, in acute distress 11:29 ENT: Dry mucous membranes. 11:29 Abdomen/GI: Soft, tenderness diffusely, mild guarding, no rebound, 11:29 Neuro: Mumbling incoherently, moves all 4 extremities equally, 11:42 ECG was reviewed by the Attending Physician. rt Vital Signs: 09:26 BP 93 / 64; Pulse 112; Pulse Ox 100% on R/A; tm6 09:26 Temp 96(TE); tm6 09:26 Resp 40; tm6 09:48 Height 5 ft. 4 in. ; ld1 09:50 Weight 53.5 kg; ld1 09:53 BP 77 / 48; Pulse 106; Resp 29; Pulse Ox 97% on R/A; ld1 09:54 BP 78 / 54; Pulse 106; Resp 27; Pulse Ox 98% on R/A; ld1 10:16 BP 63 / 46; Pulse 102; Resp 28; Pulse Ox 98% on R/A; ld1 10:21 BP 74 / 47; Pulse 100; Resp 24; Pulse Ox 98% on R/A; ld1 10:25 BP 68 / 45; Pulse 103; Resp 26; Pulse Ox 98% on R/A; ld1 10:30 BP 82 / 51; Pulse 106; Resp 22; Pulse Ox 98% on R/A; ld1 10:30 BP 82 / 51; tm6 10:35 BP 82 / 49; Pulse 105; Resp 20; Pulse Ox 97% on R/A; ld1 10:35 BP 82 / 49; tm6 10:40 BP 89 / 55; tm6 10:45 BP 81 / 52; Pulse 107; Resp 21; Pulse Ox 97% on R/A; tm6 10:45 BP 81 / 52; tm6 10:50 BP 90 / 53; tm6 11:00 BP 72 / 57; Pulse 112; Resp 20; Pulse Ox 100% on R/A; tm6 11:15 BP 83 / 54; Pulse 107; Resp 19; Pulse Ox 97% on R/A; tm6 11:25 BP 93 / 63; Pulse 105; Resp 25; Pulse Ox 98% on R/A; tm6 11:34 BP 85 / 54; tm6 11:35 BP 72 / 53; Pulse 100; Resp 20; Pulse Ox 95% on R/A; tm6 11:39 BP 85 / 54; ld1 11:45 BP 90 / 61; Pulse 99; Resp 16; Pulse Ox 97% on R/A; tm6 11:54 BP 84 / 44; Pulse 98; Resp 19; Pulse Ox 95% on R/A; tm6 11:55 BP 84 / 44; tm6 11:57 BP 93 / 50; Pulse 96; Resp 19; Pulse Ox 96% on R/A; tm6 12:09 BP 120 / 99; Pulse 101; Resp 20; Pulse Ox 97% on R/A; tm6 12:13 BP 127 / 93; tm6 12:15 BP 85 / 64; Pulse 88; Resp 18 S; Pulse Ox 97% on R/A; aa5 12:20 BP 85 / 50; Pulse 91; Resp 16 S; Pulse Ox 96% on R/A; aa5 12:25 BP 94 / 47; Pulse 91; Resp 18 S; Pulse Ox 96% on R/A; aa5 12:30 BP 84 / 67; Pulse 90; Resp 16 S; Pulse Ox 96% on R/A; aa5 12:35 BP 88 / 67; Pulse 92; Resp 16 S; Pulse Ox 97% on R/A; aa5 12:40 BP 99 / 50; Pulse 90; Resp 16 S; Pulse Ox 96% on R/A; aa5 12:45 BP 98 / 51; Pulse 89; Resp 16 S; Pulse Ox 98% on R/A; aa5 12:55 BP 93 / 55; Pulse 89; Resp 16; Pulse Ox 95% on R/A; ld1 13:05 BP 108 / 69; Pulse 96; Resp 18; Pulse Ox 97% on R/A; ld1 13:11 BP 108 / 69; Pulse 91; tm6 13:33 BP 101 / 57; Pulse 89; Resp 15; Pulse Ox 96% on R/A; ld1 13:55 BP 107 / 88; Pulse 86; Resp 18; Pulse Ox 96% on R/A; ld1 13:58 BP 101 / 78; ld1 Procedures: 11:29 Central Line: the site was prepped with Chlorhexidine, a triple lumen catheter was rt inserted, in the left internal jugular vein, in 1 attempts. placement was verified, by CXR, Placement found to be in right brachiocephalic vein, no pain with usage., the site was dressed with Chlorhexidine impregnated Tegaderm, the patient tolerated the procedure, well. MDM: 09:27 Patient medically screened. rt 11:29 Differential Diagnosis: Sepsis, septic shock, UTI, intracranial hemorrhage, mesenteric rt ischemia, C. difficile, DKA. Data reviewed: vital signs, nurses notes, lab test result(s), EKG, radiologic studies. Consideration of Admission/Observation Patient was admitted/placed on observation. I considered the following discharge prescriptions or medication management in the emergency department Medications were administered in the Emergency Department. See MAR. Independent interpretation of the following test(s) in the Emergency Department CT Scan: My interpretation is No bowel obstruction some interpretation of CT scan images. Care significantly affected by the following chronic conditions: Diabetes. Counseling: I had a detailed discussion with the patient and/or guardian regarding the historical points, exam findings, and any diagnostic results supporting the discharge/admit diagnosis, lab results, radiology results, the need to transfer to another facility. Response to treatment: the patient's symptoms have markedly improved after treatment. 12:10 Post IV fluid administration reassessment for Sepsis: Client not prescribed the 30 rt mL/kg IVF due to: concern related to heart failure. Focused assessment performed: September 21, 2023 at 12:10 Lungs: noted to be clear bilaterally. Capillary refill examination performed. Capillary refill noted to be < 2 seconds. Skin examination performed. Skin noted to be pink. Current patient vital signs reviewed: Yes. Neuro: Patient's neurological exam has improved from previous exam. Respiratory: Respiratory exam improved from previous exam. 09/21 09:55 Order name: Comprehensive Metabolic Panel; Complete Time: 10:35 EDMS 09/21 09:55 Order name: Troponin High Sensitivity; Complete Time: 10:35 EDMS 09/21 09:55 Order name: NT PRO-BNP; Complete Time: 10:35 EDMS 09/21 09:55 Order name: BETA HYDROXYBUTYRATE; Complete Time: 10:35 EDMS 09/21 09:56 Order name: Lactate w/ 2H reflex if indic.; Complete Time: 10:26 EDMS 09/21 09:56 Order name: CBC with Automated Diff; Complete Time: 11:03 EDMS 09/21 09:56 Order name: Protime (+INR); Complete Time: 10:06 EDMS 09/21 09:56 Order name: PTT, Activated Partial Thromb; Complete Time: 10:06 EDMS 09/21 09:59 Order name: Blood Culture EDMS 09/21 09:59 Order name: Blood Culture EDTX 09/21 10:04 Order name: C.difficile GDH Ag ; Complete Time: 11: EDTX 09/21 10:05 Order name: Manual Differential; Complete Time: 11:03 EDMS 09/21 11:27 Order name: CREATININE WHOLE BLOOD; Complete Time: 11:48 EDMS 09/21 11:52 Order name: ABG: vbg; Complete Time: 13:41 rt 09/21 11:53 Order name: Glucose, Ancillary Testing; Complete Time: 12:04 EDMS 09/21 13:17 Order name: Glucose, Ancillary Testing; Complete Time: 13:41 EDMS 09/21 14:08 Order name: Glucose, Ancillary Testing EDMS 09/21 09:37 Order name: Chest Single View XRAY; Complete Time: 11:03 rt 09/21 09:54 Order name: Head C Spine Mpr Wo Con; Complete Time: 10:26 EDMS 09/21 10:14 Order name: Abdomen ; Complete Time: 11:03 EDMS 09/21 11:09 Order name: Chest Single View; Complete Time: 11:48 EDMS 09/21 09:37 Order name: EKG; Complete Time: 10:02 rt 09/21 09:37 Order name: Accucheck; Complete Time: 09:40 rt 09/21 09:37 Order name: Cardiac monitoring; Complete Time: 09:40 rt 09/21 09:37 Order name: EKG - Nurse/Tech; Complete Time: 09:40 rt 09/21 09:37 Order name: IV Saline Lock - Large Bore; Complete Time: 09:40 rt 09/21 09:37 Order name: Labs collected and sent; Complete Time: 09:48 rt 09/21 09:37 Order name: O2 Per Protocol; Complete Time: 09:40 rt 09/21 09:37 Order name: O2 Sat Monitoring; Complete Time: 09:40 rt 09/21 09:37 Order name: Vital Signs; Complete Time: 09:48 rt EC:42 Rate is 95 beats/min. 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 QRS [place] is Normal. QT interval is normal. No Q waves. Administered Medications: 09:40 Drug: NS 0.9% IV 500 ml IV at bolus once Route: IV; Rate: bolus; Site: left antecubital;ld1 09:48 Drug: Cefepime IVPB 2 grams IVPB at 200 ml/hr once over 30 mins; (mix in NS 100 mL) ld1 Route: IVPB; Rate: 200 ml/hr; Infused Over: 30 mins; Site: left antecubital; 10:06 Drug: NS 0.9% IV 500 ml IV at bolus once Route: IV; Rate: bolus; Site: right ld1 antecubital; 10:30 Drug: Norepinephrine IV 0.1 mcg/kg/min IV at calculated rate Per protocol; (Standard tm6 concentration 4 mg / 250 mL D5W); Recommended max rate 3 mcg/kg/min; Titrate 0.05 mcg/kg/min as often as every 5 minutes to achieve goal (see titration policy); Goal parameter MAP greater than 65 mmHg. Route: IV; Rate: calculated rate; Site: right antecubital; 10:30 Follow up: BP 82 / 51; Rate change 10 Titrate tm6 10:35 Follow up: BP 82 / 49; Rate change 12 Titrate tm6 10:40 Follow up: BP 89 / 55; Rate change 15 Titrate tm6 10:45 Follow up: BP 81 / 52; Rate change 15 Titrate tm6 10:50 Follow up: BP 90 / 53; Rate change 18 Titrate tm6 11:34 Follow up: BP 85 / 54; Rate change 0.1 mcg/kg/min tm6 11:39 Follow up: BP 85 / 54; Rate change 0.15 mcg/kg/min ld1 11:45 Follow up: Rate change 0.2 mcg/kg/min tm6 11:55 Follow up: BP 84 / 44; Rate change 0.25 mcg/kg/min tm6 12:13 Follow up: BP 127 / 93; Rate change 0.15 mcg/kg/min tm6 12:23 Follow up: Rate change 0.2 mcg/kg/min aa5 10:58 Drug: Sodium Bicarbonate IVP 50 mEq IVP once Route: IVP; Site: right antecubital; tm6 11:08 Drug: fentaNYL (PF) IVP 50 mcg IVP once Route: IVP; Site: right antecubital; tm6 14:02 Follow up: Response: No adverse reaction ld1 11:43 Drug: Insulin Drip - (Insulin Regular Human IVP 100 units, NS 0.9% IV 100 ml) IV at tm6 calculated rate continuous; Standard concentration 1unit/ml; Dose for DKA is 0.1 units/kg/hr {Co-Signature: ld1 (Capellan, Celena RN).} Route: IV; Rate: calculated rate; Site: left jugular; 13:11 Follow up: BP 108 / 69; Pulse 91 bpm; Rate change 2.7 units/hr tm6 13:58 Follow up: BP 101 / 78; Rate change 1.3 units/hr; IV Status: Infusion continued; BGL ld1 174 - decreased insulin drip by half from 2.7 U/hr to 1.3 U/hr 11:58 Drug: vancoMYCIN IVPB 1 grams IVPB once over 2 hrs Route: IVPB; Infused Over: 2 hrs; tm6 Site: left jugular; 12:09 Drug: NS 0.9% IV 500 ml IV at bolus once Route: IV; Rate: bolus; Site: right tm6 antecubital; 14:03 Drug: Sodium Bicarbonate IVP 50 mEq IVP once Route: IVP; Site: left jugular; tm6 Disposition: 11:29 Chart complete. Chart complete. rt Disposition Summary: 09/21/23 11:41 Transfer Ordered Notes: Transfer Location: [facility] rt Reason: Higher level of care rt Condition: Critical rt Problem: new rt Symptoms: have improved rt Accepting Physician: (09/21/23 14:18) ld1 Diagnosis - Severe sepsis with septic shock rt - Hyperglycemia, unspecified rt Forms: - Medication Reconciliation Form rt - SBAR form rt Critical care time excluding procedures: 11:29 Critical care time: Bedside Care: 45 minutes, Consultation: 10 minutes. Total time: 55 rt minutes Signatures: Dispatcher [employer] EDKeesha Casey RN RN ll1 Celena Capellan, RN RN ld1 Siri Gutierrez FNP [employer] TEACHER 7 Jose Quispe MD MD rt Colleen Ortiz RN RN tm6 Rachnaa Blanco RN aa5 Celena Capellan RN ld1 Corrections: (The following items were deleted from the chart) 09:54 09:47 Head C Spine Cap W Con ordered. EDMS EDMS 10:06 09:47 Chest Single View ordered. EDMS EDMS 10:12 10:02 Abdomen Pelvis W Con+CT.RAD.BRZ ordered. EDMS EDMS 10:13 10:02 Head C Spine MPR Wo Con+CT.RAD.BRZ ordered. EDMS EDMS 10:14 09:47 Abdomen ordered. EDMS EDMS 14:18 11:41 Dr. rt ld1
--- NOTE | 2023-09-21 11:42 | ER ---
Nurse's Notes [facility] Name: Lorelei Ordonez Age: 82 yrs Sex: Female : 1940 Arrival Date: 09/21/2023 Time: 09:16 Bed 2 Private MD: Diagnosis: Severe sepsis with septic shock;Hyperglycemia, unspecified Presentation: 09/21 09:26 Chief complaint: Patient states: syncope in bathroom. Coronavirus screen: Client denies tm6 travel out of the [place] in the last 14 days. At this time, the client does not indicate any symptoms associated with coronavirus-19. Ebola Screen: Patient negative for fever greater than or equal to 101.5 degrees Fahrenheit, and additional compatible Ebola Virus Disease symptoms Patient denies exposure to infectious person. Patient denies travel to an Ebola-affected area in the 21 days before illness onset. No symptoms or risks identified at this time. Initial Sepsis Screen: Does the patient meet any 2 criteria? Temp <36.0*C (96.8*F)) or > 38.3*C (100.9*F). HR > 90 bpm. Yes Does the patient have a suspected source of infection? No. Patient's initial sepsis screen is negative. Risk Assessment: Do you want to hurt yourself or someone else? Patient reports no desire to harm self or others. Onset of symptoms was September 21, 2023. 09:26 Method Of Arrival: Wheelchair tm6 09:26 Acuity: MELY 2 tm6 Triage Assessment: 09:26 General: Appears distressed, Behavior is restless. Pain: Denies pain. EENT: No signs tm6 and/or symptoms were reported regarding the EENT system. Neuro: Level of Consciousness is awake, confused, Oriented to person. Cardiovascular: Capillary refill is > 3 seconds Rhythm is sinus tachycardia. Respiratory: Airway is patent Respiratory effort is labored, Respiratory pattern is symmetrical, tachypnea. GI: Abdomen is round non-distended. : No signs and/or symptoms were reported regarding the genitourinary system. Derm: No signs and/or symptoms reported regarding the dermatologic system. Musculoskeletal: No signs and/or symptoms reported regarding the musculoskeletal system. Historical: - Allergies: 09:19 No Known Allergies; ll1 - PMHx: :19 Hypercholesterolemia; Hypertensive disorder; ll1 - Immunization history:: Adult Immunizations up to date. - Social history:: Smoking status: Patient denies any tobacco usage or history of. Patient/guardian denies using alcohol. - Family history:: not pertinent. Screenin:28 [facility] ED Fall Risk Assessment (Adult) History of falling in the last 3 months, ld1 including since admission No falls in past 3 months (0 pts). Abuse screen: Denies threats or abuse. Denies injuries from another. Nutritional screening: No deficits noted. Tuberculosis screening: No symptoms or risk factors identified. Assessment: 09:19 Reassessment: Code sepsis called at this time. ld1 09:35 Reassessment: No changes from previously documented assessment. see triage assessment. tm6 09:37 Reassessment: Pt c/o abdominal pain. Placed bedpan under patient X 2 - received liquid ld1 stool sample. Notified ERP. 09:53 Reassessment: No changes from previously documented assessment. Neuro: Level of ld1 Consciousness is obeys commands, confused, lethargic, Oriented to person, place. Cardiovascular: Reports syncope, Capillary refill < 3 seconds Rhythm is sinus tachycardia. Respiratory: Airway is patent Respiratory effort is even, labored. GI: Reports lower abdominal pain, upper abdominal pain, diarrhea, nausea. Derm: Skin is diaphoretic, Skin temperature is cool. 10:47 Reassessment: ERP at bedside - central line insertion. ld1 11:28 Reassessment: Patient alert and oriented, talking with family. Patient stated stomach tm6 is feeling better. Patient remains on norepi. Patient states feeling better. Pain: Denies pain. GI:. 11:34 Reassessment: Changed Levophed drip from non weight based titration to weight based ld1 titration at this time. 11:50 Reassessment: Insulin drip started at 5.4 U/hr. tm6 12:20 Reassessment: Patient is alert, oriented x 3, equal unlabored respirations, skin aa5 warm/dry/pink. 14:01 Reassessment: No changes from previously documented assessment. Patient is alert, ld1 oriented x 3, equal unlabored respirations, skin warm/dry/pink. Vital Signs: 09:26 BP 93 / 64; Pulse 112; Pulse Ox 100% on R/A; tm6 09:26 Temp 96(TE); tm6 09:26 Resp 40; tm6 09:48 Height 5 ft. 4 in. ; ld1 09:50 Weight 53.5 kg; ld1 09:53 BP 77 / 48; Pulse 106; Resp 29; Pulse Ox 97% on R/A; ld1 09:54 BP 78 / 54; Pulse 106; Resp 27; Pulse Ox 98% on R/A; ld1 10:16 BP 63 / 46; Pulse 102; Resp 28; Pulse Ox 98% on R/A; ld1 10:21 BP 74 / 47; Pulse 100; Resp 24; Pulse Ox 98% on R/A; ld1 10:25 BP 68 / 45; Pulse 103; Resp 26; Pulse Ox 98% on R/A; ld1 10:30 BP 82 / 51; Pulse 106; Resp 22; Pulse Ox 98% on R/A; ld1 10:30 BP 82 / 51; tm6 10:35 BP 82 / 49; Pulse 105; Resp 20; Pulse Ox 97% on R/A; ld1 10:35 BP 82 / 49; tm6 10:40 BP 89 / 55; tm6 10:45 BP 81 / 52; Pulse 107; Resp 21; Pulse Ox 97% on R/A; tm6 10:45 BP 81 / 52; tm6 10:50 BP 90 / 53; tm6 11:00 BP 72 / 57; Pulse 112; Resp 20; Pulse Ox 100% on R/A; tm6 11:15 BP 83 / 54; Pulse 107; Resp 19; Pulse Ox 97% on R/A; tm6 11:25 BP 93 / 63; Pulse 105; Resp 25; Pulse Ox 98% on R/A; tm6 11:34 BP 85 / 54; tm6 11:35 BP 72 / 53; Pulse 100; Resp 20; Pulse Ox 95% on R/A; tm6 11:39 BP 85 / 54; ld1 11:45 BP 90 / 61; Pulse 99; Resp 16; Pulse Ox 97% on R/A; tm6 11:54 BP 84 / 44; Pulse 98; Resp 19; Pulse Ox 95% on R/A; tm6 11:55 BP 84 / 44; tm6 11:57 BP 93 / 50; Pulse 96; Resp 19; Pulse Ox 96% on R/A; tm6 12:09 BP 120 / 99; Pulse 101; Resp 20; Pulse Ox 97% on R/A; tm6 12:13 BP 127 / 93; tm6 12:15 BP 85 / 64; Pulse 88; Resp 18 S; Pulse Ox 97% on R/A; aa5 12:20 BP 85 / 50; Pulse 91; Resp 16 S; Pulse Ox 96% on R/A; aa5 12:25 BP 94 / 47; Pulse 91; Resp 18 S; Pulse Ox 96% on R/A; aa5 12:30 BP 84 / 67; Pulse 90; Resp 16 S; Pulse Ox 96% on R/A; aa5 12:35 BP 88 / 67; Pulse 92; Resp 16 S; Pulse Ox 97% on R/A; aa5 12:40 BP 99 / 50; Pulse 90; Resp 16 S; Pulse Ox 96% on R/A; aa5 12:45 BP 98 / 51; Pulse 89; Resp 16 S; Pulse Ox 98% on R/A; aa5 12:55 BP 93 / 55; Pulse 89; Resp 16; Pulse Ox 95% on R/A; ld1 13:05 BP 108 / 69; Pulse 96; Resp 18; Pulse Ox 97% on R/A; ld1 13:11 BP 108 / 69; Pulse 91; tm6 13:33 BP 101 / 57; Pulse 89; Resp 15; Pulse Ox 96% on R/A; ld1 13:55 BP 107 / 88; Pulse 86; Resp 18; Pulse Ox 96% on R/A; ld1 13:58 BP 101 / 78; ld1 ED Course: 09:18 Patient arrived in ED. ll1 09:18 Arm band placed on Patient placed in an exam room, on a stretcher. ll1 09:18 Patient has correct armband on for positive identification. Placed in gown. Bed in low ld1 position. Call light in reach. Side rails up X2. sales representative uniforms on. Pulse ox on. NIBP on. Door closed. Noise minimized. Warm blanket given. 09:23 Jose Quispe MD is Attending Physician. rt 09:24 Inserted saline lock: 20 gauge in right antecubital area, using aseptic technique. ld1 Blood collected. 09:26 Colleen Ortiz RN is Primary Nurse. tm6 09:26 EKG completed in triage. Results shown to . tm6 09:30 Triage completed. tm6 09:35 Inserted saline lock: 20 gauge in left wrist, using aseptic technique. Blood collected. ld1 09:50 Straight cath inserted, using sterile technique, unable to obtain urine - pt was not ld1 producing urine. 10:14 Abdomen In Process Unspecified. EDMS 10:15 Head C Spine Mpr Wo Con In Process Unspecified. EDMS 10:31 Notified ED physician of a critical lab result(s). troponin 62, blood glucose 559. ll1 10:47 Assisted provider with central line placement. Set up central line tray. Triple lumen tm6 line placed in left internal jugular. Line placed by Jose Quispe MD Placement verified by CXR, blood return, Dressed with Tegaderm, Patient tolerated well. Before procedure, did Practitioner(s) obtain informed consent? Yes. Patient \T\ family education about procedure, CLABSI prevention and S/S of infection? Yes. 10:54 Chest Single View XRAY In Process Unspecified. EDMS 11:12 Chest Single View In Process Unspecified. EDMS 11:26 Transfer initiated with [facility] transfer center. em1 13:00 Transfer accepted by Sachin Goodman to [facility], Dr. Rigo Alvarez [facility] ICU em1 Rm# [id number]. 14:18 Patient transferred, IV remains in place. ld1 Administered Medications: 09:40 Drug: NS 0.9% IV 500 ml IV at bolus once Route: IV; Rate: bolus; Site: left antecubital;ld1 09:48 Drug: Cefepime IVPB 2 grams IVPB at 200 ml/hr once over 30 mins; (mix in NS 100 mL) ld1 Route: IVPB; Rate: 200 ml/hr; Infused Over: 30 mins; Site: left antecubital; 10:06 Drug: NS 0.9% IV 500 ml IV at bolus once Route: IV; Rate: bolus; Site: right ld1 antecubital; 10:30 Drug: Norepinephrine IV 0.1 mcg/kg/min IV at calculated rate Per protocol; (Standard tm6 concentration 4 mg / 250 mL D5W); Recommended max rate 3 mcg/kg/min; Titrate 0.05 mcg/kg/min as often as every 5 minutes to achieve goal (see titration policy); Goal parameter MAP greater than 65 mmHg. Route: IV; Rate: calculated rate; Site: right antecubital; 10:30 Follow up: BP 82 / 51; Rate change 10 Titrate tm6 10:35 Follow up: BP 82 / 49; Rate change 12 Titrate tm6 10:40 Follow up: BP 89 / 55; Rate change 15 Titrate tm6 10:45 Follow up: BP 81 / 52; Rate change 15 Titrate tm6 10:50 Follow up: BP 90 / 53; Rate change 18 Titrate tm6 11:34 Follow up: BP 85 / 54; Rate change 0.1 mcg/kg/min tm6 11:39 Follow up: BP 85 / 54; Rate change 0.15 mcg/kg/min ld1 11:45 Follow up: Rate change 0.2 mcg/kg/min tm6 11:55 Follow up: BP 84 / 44; Rate change 0.25 mcg/kg/min tm6 12:13 Follow up: BP 127 / 93; Rate change 0.15 mcg/kg/min tm6 12:23 Follow up: Rate change 0.2 mcg/kg/min aa5 10:58 Drug: Sodium Bicarbonate IVP 50 mEq IVP once Route: IVP; Site: right antecubital; tm6 11:08 Drug: fentaNYL (PF) IVP 50 mcg IVP once Route: IVP; Site: right antecubital; tm6 14:02 Follow up: Response: No adverse reaction ld1 11:43 Drug: Insulin Drip - (Insulin Regular Human IVP 100 units, NS 0.9% IV 100 ml) IV at tm6 calculated rate continuous; Standard concentration 1unit/ml; Dose for DKA is 0.1 units/kg/hr {Co-Signature: ld1 (Celena Capellan RN).} Route: IV; Rate: calculated rate; Site: left jugular; 13:11 Follow up: BP 108 / 69; Pulse 91 bpm; Rate change 2.7 units/hr tm6 13:58 Follow up: BP 101 / 78; Rate change 1.3 units/hr; IV Status: Infusion continued; BGL ld1 174 - decreased insulin drip by half from 2.7 U/hr to 1.3 U/hr 11:58 Drug: vancoMYCIN IVPB 1 grams IVPB once over 2 hrs Route: IVPB; Infused Over: 2 hrs; tm6 Site: left jugular; 12:09 Drug: NS 0.9% IV 500 ml IV at bolus once Route: IV; Rate: bolus; Site: right tm6 antecubital; 14:03 Drug: Sodium Bicarbonate IVP 50 mEq IVP once Route: IVP; Site: left jugular; tm6 Medication: 14:18 VIS not applicable for this client. ld1 Intake: Outcome: 11:41 ER care complete, transfer ordered by MD. rt 14:17 Transferred by helicopter to [facility], [facility], 1 14:17 Condition: improved 14:17 Instructed on the need for transfer, 14:18 Patient left the ED. ld1 Signatures: Dispatcher [employer] Carlos Mathias em1 Rachana Blanco RN RN [id number] Keesha Wallace RN RN 1 Celena Capellan RN RN ld1 Jose Quispe MD MD rt Colleen Ortiz RN RN 6 Cleena Capellan RN ld1 Corrections: (The following items were deleted from the chart) 10:33 10:31 Notified ED physician of a critical lab result(s). troponin 62, blood glucose ll1 ll1 11:22 10:30 BP 82 / 51; Rate change 10 mcg/kg/min tm6 tm6 11:23 10:35 BP 82 / 49; Rate change 12 ml/kg/hour tm6 tm6 11:23 11:23 BP 82 / 49; Rate change 12 Titrate tm6 tm6 11:24 10:40 BP 89 / 55; Rate change 15 mcg/kg/min tm6 tm6 11:24 10:45 BP 81 / 52; Rate change 15 mcg/kg/min tm6 tm6 11:24 11:22 BP 82 / 51; Rate change 10 Titrate tm6 tm6 11:28 11:27 Assisted provider with central line placement. Set up central line tray. Triple tm6 lumen line placed in left internal jugular. Line placed by Jose Quispe MD Placement verified by CXR, blood return, Dressed with Tegaderm, Patient tolerated well. Before procedure, did Practitioner(s) obtain informed consent? Yes. Patient \T\ family education about procedure, CLABSI prevention and S/S of infection? Yes. tm6
[2023-09-21 12:02] LABS: Arterial Blood Carboxyhemoglob 0.5 % (0-1.5); Blood O2 Saturation 46.2 % (92-98.5)
[2023-09-21] MEDS ORDERED: VANCOMYCIN 1 GM/VIAL ONE (12:02)
[2023-09-21] MEDS ORDERED: NA CHLORIDE 0.9% 250 ML ONE (12:03)
[2023-09-21] MEDS ORDERED: NA CHLORIDE 0.9% 500 ML ONE (12:22)
[2023-09-21 14:26] VITALS: TEMP 96
[2023-09-21 15:20] VITALS: O2SAT 96
[2023-09-21 15:23] VITALS: BP 101/78
== END 2023-09-21 14:18 | disposition short-term general hospital (02) ==
LOC: ER 09:16
DX: A41.9 Sepsis, unspecified organism (principal); R73.9 Hyperglycemia, unspecified; R65.21 Severe sepsis with septic shock; I10 Essential (primary) hypertension
CPT/HCPCS: 93005; 87040 ×2; 85025; 36415; 85610; 82565; 82947 ×3; 83605; 85730; 87324; 84484; 80053; 82010; 83880; 70450; 72125; 74176; 71045 ×2; 82805; 51702; 99291; 36600; J1815; J3010; J0692; J7050; J7040; J7030